=== PATIENT | male | born 1960 | race African-American/Black ===

== ENCOUNTER 2016-11-17 10:05 | Observation (INO) | payer OTHER, SELFPAY ==
[2016-11-17 10:41] LABS: #Basophils 0.1 thou/uL (0.0-0.2); #Eosinphils 0.2 thou/uL (0.0-0.7); #Lymphocytes 2.2 thou/uL (1.20-3.40); #Monocytes 0.8 thou/uL (0.11-0.59); #Neutrophils 8.3 thou/uL (1.40-6.50); %Basophils 0.9 % (0.0-1.0); %Eosinophils 1.5 % (0.0-10.0); Hematocrit 46.4 % (42.0-52.0); Mean Platelet Volume 8.4 fL (7.4-10.4); White Blood Cell (WBC) Count 11.6 thou/uL (4.8-10.8)
[2016-11-17 11:04] LABS: ALT (SGPT) 17 U/L (8-55); AST (SGOT) 33 U/L (5-34); Alkaline Phosphatase 77 U/L (40-150); Anion Gap 18 mmol/L (10-20); BUN (Urea Nitrogen) 14 mg/dL (8.4-25.7); Bilirubin, Total 0.5 mg/dL (0.2-1.2); Calc. Creatinine Clearance 0 mL/min (70-130); Calcium 9.5 mg/dL (7.8-10.44); Carbon Dioxide 22 mmol/L (22-29); Chloride 105 mmol/L (98-107); Estimated GFR-MDRD 52; Globulin 3.8 g/dL (2.4-3.5); Protein, Total 7.6 g/dL (6.0-8.3)
[2016-11-17] MEDS ORDERED: HYDROcodone/Acetaminophen 5/325 mg Tablet ONE (12:04)
[2016-11-17] MEDS ORDERED: Potassium Chloride 20 MEQ TAB ONE (12:16)
--- NOTE | 2016-11-17 15:02 | RAD ---
THREE VIEWS LEFT HAND: Date: 11-17-16 History: Left hand swelling for five days. Left hand pain. FINDINGS/IMPRESSION: There is no evidence of fracture, dislocation, or other osseous abnormality involving the left hand. There is subcutaneous soft tissue swelling seen at the dorsal aspect of the hand. POS: NATANAEL
--- NOTE | 2016-11-17 15:07 | ULT ---
LEFT UPPER EXTREMITY VENOUS DOPPLER WITH SPECTRAL ANALYSIS AND COLOR FLOW EVALUATION: Date: 11-17-16 History: Left hand swelling and pain for five days . FINDINGS: Grayscale, color flow, doppler evaluation, and spectral analysis of the left upper extremity venous structures is performed with 2D imaging. There is normal lumen compressibility and flow in the left internal jugular vein. Normal flow is seen in the left subclavian vein. There is normal lumen compre ssibility and flow seen within the left axillary and brachial veins with normal lumen compressibilit y in the left radial and ulnar veins. There is normal flow and lumen compressibility involving the l eft cephalic and basilic veins. IMPRESSION: No evidence of DVT involving the visualized deep venous structures left upper extremity. POS: SHANDRA
--- NOTE | 2016-11-17 15:07 | HP ---
PRIMARY CARE PHYSICIAN: [facility]. REASON FOR ADMISSION: Left hand swelling. HISTORY OF PRESENT ILLNESS: A 56-year-old male with a history of gout, hypertensio n, who came to the emergency room for evaluation of left hand swelling for the last 5 days. Patient denies any injury. He denies any insect bite. Patient reports that 5 days ago, problems started w ith his little finger on the left side, little finger was more swollen and more warm and subsequentl y he noticed swelling spreading to entire left hand as well as proximally in the forearm. He was braxton ving throbbing pain. Patient was trying ibuprofen at home without any help. He denies any fever. He denies any chills. Patient was not able to flex or extend his hand and with movement of the fing er, the patient's pain was getting worse. With these symptoms, he presented to the emergency room. The patient was found with left hand swelling. Dr. Siu, hand surgeon was consulted from ER who recommended to keep this patient in the hospital for evaluation. REVIEW OF SYSTEMS: The following complete review of systems was negative, unless otherwise mentione d in the HPI or below: Constitutional: Weight loss or gain, ability to conduct usual activities. Skin: Rash, itching. Eyes: Double vision, pain. ENT/Mouth: Nose bleeding, neck stiffness, pain, tenderness. Cardiovascular: Palpitations, dyspnea on exertion, orthopnea. Respiratory: Shortness of breath, wheezing, cough, hemoptysis, fever or night sweats. Gastrointestinal: Poor appetite, abdominal pain, heartburn, nausea, vomiting, constipation, or diar shy. Genitourinary: Urgency, frequency, dysuria, nocturia. Musculoskeletal: Pain, swelling. Neurologic/Psychiatric: Anxiety, depression. Allergy/Immunologic: Skin rash, bleeding tendency. All review of systems reviewed with him are negative except as mentioned in the HPI. EMERGENCY ROOM COURSE: Patient has received [place] 5 mg and potassium chloride 40 mEq p.o. one time dose. PAST MEDICAL HISTORY: Hypertension, history of CVA in 2007, dyslipidemia, chronic kidney disease st age 3. PAST SURGICAL HISTORY: Reviewed and negative. PAST PSYCHIATRIC HISTORY: Reviewed and negative. SOCIAL HISTORY: Patient lives at home. He denies any smoking, alcohol or illicit drug abuse. He i s . FAMILY HISTORY: No strong family history of premature coronary artery disease, stroke or cancer. ALLERGIES: The patient is not tolerating LISINOPRIL. CURRENT HOME MEDICATIONS: Aspirin 81 mg p.o. daily, amlodipine 5 mg p.o. daily, metoprolol 100 mg t wice daily, sildenafil 20 mg as needed. PHYSICAL EXAMINATION: VITAL SIGNS: On arrival, blood pressure 142/101, pulse 65, respiratory rate 20, temperature 97.5, s aturation 98% on room air, weight 95.2 kilograms. GENERAL: Patient is currently alert, awake, no obvious acute distress. HEAD: Normocephalic, atraumatic. EYES: Pupils round, reactive to light. Extraocular muscle intact. ENT: Oropharynx within normal limits. Moist mucous membranes. No oral lesions. No pharyngeal anastasiya thema, no exudate. NECK: Supple. Range of motion is normal. No meningeal signs of irritation. LUNGS: Clear to auscultation without any rhonchi or rales. CARDIAC: S1, S2 regular without any murmur. ABDOMEN: Obesity present. Bowel sounds present. Nontender, nondistended. No organomegaly, no mas s, no suprapubic tenderness. BACK: Unremarkable, no CVA tenderness. EXTREMITIES: Upper extremity: Left hand swollen, left little finger is erythematous, warm and tend er. Patient has swelling on the dorsal aspect of left hand with movement of finger as well as flexi on and extension movement increases pain and mild warmth noted and tenderness on deep palpation. No fluctuance noted. No drainage. Lower extremity within normal limits. No edema, good peripheral p ulsation. SKIN: No skin rash other than left hand swelling. NEUROLOGIC: Nonfocal examination. The patient moves all 4 limbs. Plantar bilateral flexor. PSYCHIATRIC: Normal affect. SIGNIFICANT LABORATORY DATA AND IMAGING: CBC: WBC 11.6, hemoglobin 15.2, MCV 101, platelets 410. BMP: Sodium 142, potassium 3.0, chloride 105, carbon dioxide 22, anion gap 18, BUN 14, creatinine 1 .65, glucose 97, calcium 9.5, uric acid 10.0, CRP 2.96. LFT: AST 33, ALT 17, alkaline phosphatase 77, albumin 3.8. Hand x-ray reviewed by me, consistent with soft tissue swelling without any acute process. Ultrasound, negative for any DVT. ASSESSMENT AND PLAN: 1. Left hand swelling. At this point, differential diagnosis is acute gout versus cellulitis. Pat ient has elevated CRP, has elevated uric acid. We will try to treat him with colchicine 0.6 mg twic e daily today and see clinical response. As cellulitis is also a possibility and that is why we yocasta l treat him with Rocephin 1 gram q.24 hours and vancomycin as per pharmacy adjusted dose. Upon disc harge, we will consider changing to oral Keflex and doxycycline if needed. This patient will be kep t in observation for 24 hours. We will also consult hand surgeon for evaluation. Depending upon cl inical response, we will consider discharging him home tomorrow. 2. Hypokalemia. The patient was given potassium chloride 40 mEq p.o. one time dose in the emergenc y room. 3. Chronic kidney disease stage 3. We will avoid nephrotoxic agents. 4. Macrocytosis. We will give him folic acid and vitamin B12 while in hospital. 5. Hypertension. We will continue amlodipine 5 mg p.o. daily, metoprolol 100 mg twice daily. 6. History of cerebrovascular accident. We will continue aspirin 81 mg p.o. daily. 7. Hyperuricemia. The patient will benefit from allopurinol therapy. 8. Deep venous thrombosis prophylaxis not needed, because we are expecting discharge in 24 hours. 9. Gastrointestinal prophylaxis, Pepcid 20 mg p.o. b.i.d. CODE STATUS: Patient is FULL CODE. The patient's is surrogate decision maker. Disposition and plan, likely within 24 hours.
[2016-11-17] MEDS ORDERED: Ondansetron ODT 4 MG TAB PO PRN (15:48)
[2016-11-17] MEDS ORDERED: Artificial Tears 18 DROP/0.9 ML EA EYE PRN (15:48)
[2016-11-17] MEDS ORDERED: Milk Of Magnesia 30 ML UDCUP PO PRN (15:48)
[2016-11-17] MEDS ORDERED: Eucerin (Mineral Oil/Petrolatum,White) 30 gm Jar TOP PRN (15:48)
[2016-11-17] MEDS ORDERED: Diabetic Tussin 200 MG/10 ML UDCUP PO PRN (15:48)
[2016-11-17] MEDS ORDERED: Loperamide HCl 2 MG CAP PO PRN (15:48)
[2016-11-17] MEDS ORDERED: Ondansetron HCl/PF 4 MG/2 ML Vial IVP PRN (15:48)
[2016-11-17] MEDS ORDERED: Senokot 8.6 MG TAB PO PRN (15:48)
[2016-11-17] MEDS ORDERED: Zolpidem Tartrate 5 MG TAB PO PRN (15:48)
[2016-11-17] MEDS ORDERED: Sodium Chloride 0.65% Nasal 44 ML BOT EA NARE PRN (15:48)
[2016-11-17] MEDS ORDERED: Loratadine 10 MG TAB PO PRN (15:48)
[2016-11-17 15:55] VITALS: BMI 29.5
[2016-11-17] MEDS: cefTRIAXone\\ROCEPHIN 1 GM in Sodium Chloride 0.9% 100 ML IVPB SCH (16:59)
[2016-11-17] MEDS: predniSONE 5 MG TAB PO SCH (17:11)
[2016-11-17] MEDS ORDERED: Colchicine 0.6 MG TAB PO SCH ×2 (17:15→21:00)
[2016-11-17] MEDS: Vancomycin HCl 1.25 GM in Sodium Chloride 0.9% 250 ML 250 ML IVPB SCH (17:51)
[2016-11-17] MEDS: Colchicine 0.6 MG TAB PO SCH (20:09)
[2016-11-17] MEDS: Famotidine 20 MG TAB PO SCH (20:09)
[2016-11-17] MEDS: Acetaminophen 325 MG TAB PO PRN (20:10)
[2016-11-17] MEDS: Metoprolol Tartrate 100 MG TAB PO SCH (20:10)
[2016-11-18] MEDS: Colchicine 0.6 MG TAB PO SCH ×3 (01:49→09:18)
[2016-11-18] MEDS: predniSONE 5 MG TAB PO SCH ×2 (01:49→09:18)
--- NOTE | 2016-11-18 02:12 | CON ---
DATE OF CONSULTATION: 11/17/2016 CHIEF COMPLAINT: Left small finger pain. HISTORY OF PRESENT ILLNESS: The patient with history of 2 prior gout attacks in the last year, not on chronic medications, reports 5 days of slow insidious swelling at the left small finger. No inju ry. No fever or chills. No prior history of chronic problems with the left upper extremity. PAST MEDICAL HISTORY: This patient has a history of renal failure where he was treated by a nephrol ogist, has some return of function but still did not have normal kidneys and this has been the last year. He has also been warned not to take anti-inflammatory medicine such as Motrin, ibuprofen, and Indocin. PHYSICAL EXAMINATION: The patient is mildly obese male, in no acute distress except for his left braxton nd where he has a diffuse edema, no lymphangitis, minimal faint erythema around the small finger, bu t from the DIP to the mid metacarpal and mild antalgic motion, but -30 to 75 to 80 degrees of flexio n in PIP joint and -15 to 70 degrees motion at the MP joint. No stretch pain, no Kanavel sign, no f usiform swelling, no pain with passive stretch. LABORATORY EVALUATION: Laboratory evaluation reveals the patient has a white count of 11,600 which is mildly elevated, but has an even greater uric acid elevation. He has no other signs of overwhelm ing infection. ASSESSMENT AND RECOMMENDATION: Definite gouty attack small finger proximal phalangeal joint more li sabrina than infectious arthritis, but the possibility of gout could have precipitated secondary infect ious arthritis is there, so I recommend, since the patient cannot take anti-inflammatory medications , begin a dose of prednisone as well as colchicine. He reports he probably had the prednisone with his last attack. I will recheck the patient 24 hours and if completely asymptomatic or nearly sympt omatic, we will continue with colchicine on a home basis. If not, we will need to have drainage of the joint with cultures and specimen.
[2016-11-18 04:39] LABS: #Lymphocytes 1.4 thou/uL (1.20-3.40); #Monocytes 0.7 thou/uL (0.11-0.59); #Neutrophils 8.2 thou/uL (1.40-6.50); %Basophils 0.1 % (0.0-1.0); %Eosinophils 0.5 % (0.0-10.0); %Lymphocytes 13.5 % (21.0-51.0); %Monocytes 6.4 % (0.0-10.0); Hematocrit 46.2 % (42.0-52.0); Red Blood Cell (RBC) Count 4.59 mill/uL (4.70-6.10); White Blood Cell (WBC) Count 10.3 thou/uL (4.8-10.8)
[2016-11-18 05:19] LABS: Anion Gap 20 mmol/L (10-20); BUN (Urea Nitrogen) 13 mg/dL (8.4-25.7); Calc. Creatinine Clearance 93 mL/min (70-130); Carbon Dioxide 21 mmol/L (22-29); Chloride 100 mmol/L (98-107); Estimated GFR-MDRD 70; Uric Acid 8.3 mg/dL (3.5-7.2)
[2016-11-18] MEDS: Vancomycin HCl 1.25 GM in Sodium Chloride 0.9% 250 ML 250 ML IVPB SCH ×2 (05:30→19:15)
[2016-11-18] MEDS: Acetaminophen 325 MG TAB PO PRN ×2 (06:26→15:13)
[2016-11-18] MEDS: Metoprolol Tartrate 100 MG TAB PO SCH (09:15)
[2016-11-18] MEDS: Famotidine 20 MG TAB PO SCH ×2 (09:16→20:12)
--- NOTE | 2016-11-18 11:33 | PDOC.PN ---
- Subjective Encounter Start Date: 11/18/16 Encounter Start Time: 11:31 Patient seen and examined. No new complaints. No overnight events. feels better. Pain controlled. No N/V. - Objective Resuscitation Status: Resuscitation Status FULL:Full Resuscitation MAR Reviewed: Yes Vital Signs & Weight: Vital Signs (12 hours) Temp Pulse Resp BP BP Pulse Ox 11/18/16 07:30 97.9 F 57 L 17 141/101 H 97 11/18/16 06:29 138/102 H 11/18/16 05:38 185/127 H 11/18/16 04:38 98.6 F 61 14 184/118 H 100 11/17/16 23:32 98.5 F 68 16 159/108 H 98 I&O: 11/17/16 11/18/16 11/19/16 06:59 06:59 06:59 Intake Total 1769 240 Output Total 3250 Balance -1481 240 Result Diagrams: 11/18/16 04:05 11/18/16 04:05 Phys Exam - Physical Examination Constitutional: NAD HEENT: sclera anicteric Neck: supple Respiratory: no wheezing, no rales Cardiovascular: RRR Gastrointestinal: soft Musculoskeletal: no edema Neurological: non-focal, moves all 4 limbs Psychiatric: normal affect, A&O x 3 Skin: no rash Deviation from normal: left arm with dressings Dx/Plan (1) HLD (hyperlipidemia) Code(s): E78.5 - HYPERLIPIDEMIA, UNSPECIFIED Status: Acute (2) CKD (chronic kidney disease) Code(s): N18.9 - CHRONIC KIDNEY DISEASE, UNSPECIFIED Status: Acute (3) Pain in left hand Code(s): M79.642 - PAIN IN LEFT HAND Status: Acute (4) Hypertension Code(s): I10 - ESSENTIAL (PRIMARY) HYPERTENSION Status: Acute - Plan cont current plan of care, continue antibiotics * . continue abx f/u with surgery monitor Vanc level pharmacy to dose Vanc continue colchicine and steroids. AM labs.
[2016-11-18 12:10] LABS: #Basophils 0.1 thou/uL (0.0-0.2); #Eosinphils 0.1 thou/uL (0.0-0.7); #Lymphocytes 1.4 thou/uL (1.20-3.40); #Monocytes 1.2 thou/uL (0.11-0.59); #Neutrophils 8.6 thou/uL (1.40-6.50); %Basophils 0.5 % (0.0-1.0); %Eosinophils 0.5 % (0.0-10.0); %Lymphocytes 12.6 % (21.0-51.0); %Monocytes 10.4 % (0.0-10.0); Hematocrit 44.2 % (42.0-52.0); Mean Platelet Volume 9.1 fL (7.4-10.4); Red Blood Cell (RBC) Count 4.39 mill/uL (4.70-6.10); White Blood Cell (WBC) Count 11.4 thou/uL (4.8-10.8)
[2016-11-18] MEDS: cefTRIAXone\\ROCEPHIN 1 GM in Sodium Chloride 0.9% 100 ML IVPB SCH (15:12)
[2016-11-18] MEDS: Metoprolol Tartrate 50 MG TAB PO SCH (20:11)
[2016-11-19 04:17] VITALS: TEMP 98.2
[2016-11-19 04:32] LABS: Uric Acid-Urine 21.3 mg/dL
[2016-11-19 05:05] LABS: Anion Gap 17 mmol/L (10-20); BUN (Urea Nitrogen) 15 mg/dL (8.4-25.7); Calc. Creatinine Clearance 89 mL/min (70-130); Calcium 9.7 mg/dL (7.8-10.44); Carbon Dioxide 24 mmol/L (22-29); Chloride 99 mmol/L (98-107); Estimated GFR-MDRD 67
[2016-11-19] MEDS: Famotidine 20 MG TAB PO SCH (09:15)
[2016-11-19] MEDS: Metoprolol Tartrate 50 MG TAB PO SCH (09:15)
[2016-11-19 09:17] VITALS: BP 166/128
--- NOTE | 2016-11-19 10:58 | PDOC.PN ---
- Subjective Encounter Start Date: 11/19/16 Encounter Start Time: 10:56 Patient seen and examined. No new complaints. No overnight events. feels better and wants to go home. Pain is controlled. - Objective Resuscitation Status: Resuscitation Status FULL:Full Resuscitation MAR Reviewed: Yes Vital Signs & Weight: Vital Signs (12 hours) Temp Pulse Resp BP BP Pulse Ox 11/19/16 09:16 54 L 166/128 H 11/19/16 07:48 98.2 F 54 L 16 11/19/16 07:21 98.7 F 71 18 168/117 H 99 11/19/16 03:58 98.2 F 54 L 16 160/100 H 98 11/19/16 00:06 57 L 16 170/115 H I&O: 11/18/16 11/19/16 11/20/16 06:59 06:59 06:59 Intake Total 1769 1470 Output Total 3250 1100 Balance -1481 370 Result Diagrams: 11/18/16 11:43 11/19/16 04:00 Phys Exam - Physical Examination Constitutional: NAD HEENT: sclera anicteric Neck: supple Respiratory: no wheezing, no rales Cardiovascular: RRR Gastrointestinal: soft Musculoskeletal: no edema Neurological: non-focal, moves all 4 limbs Psychiatric: normal affect, A&O x 3 Skin: no rash Dx/Plan (1) HLD (hyperlipidemia) Code(s): E78.5 - HYPERLIPIDEMIA, UNSPECIFIED Status: Acute (2) CKD (chronic kidney disease) Code(s): N18.9 - CHRONIC KIDNEY DISEASE, UNSPECIFIED Status: Acute (3) Pain in left hand Code(s): M79.642 - PAIN IN LEFT HAND Status: Acute (4) Hypertension Code(s): I10 - ESSENTIAL (PRIMARY) HYPERTENSION Status: Acute (5) Gout attack Code(s): M10.9 - GOUT, UNSPECIFIED Status: Acute (6) Gouty arthritis Code(s): M10.9 - GOUT, UNSPECIFIED Status: Acute (7) Hypokalemia Code(s): E87.6 - HYPOKALEMIA Status: Acute - Plan * . DC home today Medrol dose luigi will give Keflex for 5 more days. Cleared by hand surgery F/u with surgery and PCP in one week. Report to ER if sx worsens. Replete K before DC will increase Amlo to 10 mg po daily.
[2016-11-19] MEDS ORDERED: Potassium Chloride 20 MEQ TAB PO SCH (11:00)
--- NOTE | 2016-11-19 23:36 | DIS ---
DATE OF ADMISSION: 11/17/2016 DATE OF DISCHARGE: 11/19/2016 DISCHARGE DIAGNOSES: 1. Left hand pain most likely gouty arthritis. 2. Gouty arthritis with resolution. 3. Hypokalemia. 4. Chronic kidney disease stage III. 5. Hypertension. 6. History of cerebrovascular accident. 7. Hyperuricemia. 8. History of gout. CONSULTATIONS: Dr. Nehemiah Siu. HOSPITAL COURSE: This is a 56-year-old male who came to the hospital with left hand pain and swelli ng and was admitted for further evaluation. On lab work, he was found to have hyperuricemia and [facility] was also consulted and they evaluated if that is secondary to gout. He was started on mekhi roids. He was also given antibiotics, although IV antibiotics was stopped and Hand Surgery recommen ded sending him home on a Medrol Dosepak. He was also given Keflex for a few more days. His blood pressure was slightly elevated, so we increased his amlodipine dose to 10 mg p.o. daily and advised to follow up with his primary care physician. He was also slightly hypokalemic. He was given a dos e of potassium on discharge. CONDITION ON DISCHARGE: Stable. DISPOSITION: To home. DISCHARGE MEDICATIONS: 1. Patient to continue all his home medications except for amlodipine, which will be increased to 1 0 mg p.o. daily and will add Keflex and Medrol Dosepak. 2. Metoprolol 50 mg p.o. b.i.d. His heart rate was on the lower side here. Advised to follow with primary care. 3. Sildenafil p.r.n. 4. Aspirin 81 mg daily. 5. Medrol Dosepak as directed. 6. Norvasc 10 mg p.o. daily. 7. Keflex 500 mg p.o. b.i.d. for 5 more days. DISCHARGE FOLLOWUP: With primary care physician in 1-[address] Nehemiah Siu of [facility] in 1 week.
== END 2016-11-19 11:43 | disposition home or self-care (01) ==
LOC: ERS 10:05 → 2SW 15:40
PROVIDERS: ADMIT Internal Medicine; ATTEND Internal Medicine
DX: M10.042 Idiopathic gout, left hand (principal); E87.6 Hypokalemia; I12.9 Hypertensive chronic kidney disease with stage 1 through stage 4 chronic kidney disease, or unspecified chronic kidney disease; N18.3 Chronic kidney disease, stage 3 (moderate); E79.0 Hyperuricemia without signs of inflammatory arthritis and tophaceous disease; Z88.8 Allergy status to other drugs, medicaments and biological substances; Z79.82 Long term (current) use of aspirin; Z79.899 Other long term (current) drug therapy
CPT/HCPCS: 36415; 80048; 80053; 84550; 84560; 85025; 86140; 87324; 87449; 96365; 96366; 96367; 96376; G0378; J0696; J3370; J7050

== ENCOUNTER 2016-12-18 09:51 | Outpatient (CLI) | payer OTHER ==
--- NOTE | 2016-12-18 13:08 | RAD ---
CHEST PA AND LATERAL: History: 56-year-old male with hypertension. Comparison: 01-21-15 FINDINGS: Heart size is normal. There is sclerosis of the aorta with ectasia. No confluent pneumonia, overt ed erika, or pleural effusion. IMPRESSION: No acute intrathoracic disease. Atherosclerosis of the aorta with ectasia. Stable from prior study. POS: NATANAEL
== END 2016-12-18 09:52 | disposition home or self-care (01) ==
LOC: RAD-FRANK 09:51
PROVIDERS: ATTEND Nurse Practitioner Family
DX: I10 Essential (primary) hypertension (principal); I70.0 Atherosclerosis of aorta; I77.819 Aortic ectasia, unspecified site
CPT/HCPCS: 71020

== ENCOUNTER 2017-05-22 21:18 | Emergency (ER) | payer OTHER ==
[2017-05-22 21:53] LABS: Bilirubin Negative (Negative); Blood, Urine Small (Negative); Clarity CLEAR (Clear); Glucose, Urine (Dipstick) Negative (Negative); Leukocyte Negative (Negative); Nitrite Negative (Negative); Protein, Urine (Dipstick) 100 mg/dL (Neg-Trace)
[2017-05-22 21:57] LABS: Bacteria/HPF None Seen HPF (None Seen); Hyaline Casts/LPF 0-3 HYALINE CAST LPF (0-3 Hyaline); Pathc Cast-AUWi Flag 0.14 (0-2.49); RBC/HPF None Seen HPF (0-3); Squamous Epithelial None Seen HPF (0-3); WBC/HPF None Seen HPF (0-3)
[2017-05-22 21:58] LABS: Amphetamine Not Detected (NotDetected); Barbiturates Screen Not Detected (NotDetected); Benzodiazepine Screen Not Detected (NotDetected); Cocaine Metabolite Screen Not Detected (NotDetected); Medtox Control Line Valid? VALID (VALID); Medtox Reader # READER 1; Methadone Not Detected (NotDetected); Methamphetamine Not Detected (NotDetected); Opiate Screen Not Detected (NotDetected); Oxycodone Screen Not Detected (NotDetected); Phencyclidine (PCP) Not Detected (NotDetected); THC/Cannabinoid Screen Detected (NotDetected); Tricyclic Screen Not Detected (NotDetected)
[2017-05-22 22:11] LABS: #Basophils 0.1 thou/uL (0.0-0.2); #Eosinphils 0.3 thou/uL (0.0-0.7); #Lymphocytes 1.9 thou/uL (1.20-3.40); #Monocytes 0.5 thou/uL (0.11-0.59); %Basophils 1.4 % (0.0-1.0); %Eosinophils 4.1 % (0.0-10.0); %Lymphocytes 28.5 % (21.0-51.0); %Monocytes 7.2 % (0.0-10.0); %Neutrophils 58.9 % (42.0-75.0); Hemoglobin 13.5 g/dL (14.0-18.0); Mean Corpuscular Hemoglobin 30.3 pg (27.0-31.0); Mean Corpuscular Volume 91.8 fl (80.0-94.0); Mean Platelet Volume 8.2 fL (7.4-10.4); Platelet Count 341 thou/uL (130-400); RBC Distribution Width 19.2 % (11.5-14.5); Red Blood Cell (RBC) Count 4.44 mill/uL (4.70-6.10); White Blood Cell (WBC) Count 6.7 thou/uL (4.8-10.8)
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
[2017-05-22 22:29] LABS: ALT (SGPT) 29 U/L (8-55); AST (SGOT) 104 U/L (5-34); Acetaminophen Less than 6.0 mcg/mL (10.0-30.0); Albumin 3.8 g/dL (3.5-5.0); Alcohol 334 mg/dL (Less than 10); Alkaline Phosphatase 92 U/L (40-150); Anion Gap 18 mmol/L (10-20); BUN (Urea Nitrogen) 15 mg/dL (8.4-25.7); Bilirubin, Total 0.4 mg/dL (0.2-1.2); Calc. Creatinine Clearance 0 mL/min (70-130); Calcium 9.3 mg/dL (7.8-10.44); Carbon Dioxide 23 mmol/L (22-29); Chloride 103 mmol/L (98-107); Estimated GFR-MDRD 54; Globulin 3.4 g/dL (2.4-3.5); Glucose 94 mg/dL (70-105); Lipase 50 U/L (8-78); Potassium 3.4 mmol/L (3.5-5.1); Protein, Total 7.2 g/dL (6.0-8.3); Salicylate Less than 8.0 mg/dL (15.0-30.0); Sodium 141 mmol/L (136-145)
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
== END 2017-05-23 03:10 | disposition home or self-care (01) ==
LOC: ERS 21:18
DX: F10.129 Alcohol abuse with intoxication, unspecified (principal); Y90.8 Blood alcohol level of 240 mg/100 ml or more; F12.10 Cannabis abuse, uncomplicated; E78.5 Hyperlipidemia, unspecified; I10 Essential (primary) hypertension; Z79.899 Other long term (current) drug therapy; Z79.82 Long term (current) use of aspirin; Z86.73 Personal history of transient ischemic attack (TIA), and cerebral infarction without residual deficits
CPT/HCPCS: 36415; 70450; 72125; 80053; 80306; 80307; 81003; 81015; 83605; 83690; 85025; 96360; 96361

== ENCOUNTER 2018-08-19 10:36 | Inpatient (IN) | payer OTHER ==
[~2018-08-19 10:36] MED LIST: ISOVUE-370 76%-LOCM 1 ML ONE
[2018-08-19 10:55] LABS: #Lymphocytes 2.2 thou/uL (1.20-3.40); #Neutrophils 8.4 thou/uL (1.40-6.50); %Basophils 0.1 % (0.0-1.0); %Eosinophils 0.4 % (0.0-10.0); %Lymphocytes 18.5 % (21.0-51.0); %Monocytes 8.9 % (0.0-10.0); %Neutrophils 72.1 % (42.0-75.0); Hemoglobin 15.1 g/dL (14.0-18.0); Mean Corpuscular Hemoglobin 27.7 pg (27.0-31.0); Mean Corpuscular Volume 89.5 fL (78.0-98.0); Mean Platelet Volume 7.7 fL (7.4-10.4); Platelet Count 301 thou/uL (130-400); RBC Distribution Width 13.2 % (11.5-14.5); Red Blood Cell (RBC) Count 5.44 mill/uL (4.70-6.10); White Blood Cell (WBC) Count 11.7 thou/uL (4.8-10.8)
[2018-08-19 11:04] LABS: INR-International Normal Ratio 0.9; PTT 28.7 SEC (22.9-36.1); Prothrombin Time 12.2 SEC (12.0-14.7)
[2018-08-19 11:21] LABS: ALT (SGPT) Less than 7 U/L (8-55); AST (SGOT) 13 U/L (5-34); Albumin 3.7 g/dL (3.5-5.0); Alkaline Phosphatase 71 U/L (40-150); Anion Gap 19 mmol/L (10-20); BUN (Urea Nitrogen) 30 mg/dL (8.4-25.7); Bilirubin, Total 0.8 mg/dL (0.2-1.2); CK (CPK) 228 U/L (30-200); Calc. Creatinine Clearance 0 mL/min (70-130); Calcium 9.4 mg/dL (7.8-10.44); Carbon Dioxide 21 mmol/L (22-29); Chloride 99 mmol/L (98-107); Estimated GFR-MDRD 27; Glucose 83 mg/dL (70-105); Lipase 14 U/L (8-78); Potassium 3.6 mmol/L (3.5-5.1); Protein, Total 6.7 g/dL (6.0-8.3); Sodium 135 mmol/L (136-145)
[2018-08-19 11:24] LABS: Acetaminophen Less than 6.0 mcg/mL (10.0-30.0); Alcohol Less than 10 mg/dL (Less than 10); Salicylate Less than 8.0 mg/dL (15.0-30.0)
--- NOTE | 2018-08-19 11:27 | RAD ---
XR Chest 1 View Portable HISTORY: Left-sided weakness slurred speech. COMPARISON: 01/21/2015 study. FINDINGS: Heart size appears slightly enlarged with a tortuous aorta. The lungs are clear of infiltra rajendra. There are no signs of failure. IMPRESSION: Mild cardiomegaly. Stable chest.
--- NOTE | 2018-08-19 11:30 | CT ---
CT angiogram of brain with and without contrast: DATE: 08/19/2018 HISTORY: 57-year-old male with subarachnoid hemorrhage. Findings intracranial aneurysm. This level 1 stroke protocol report was called to Dr. Bullock at 11:22 AM on 08/19/2018 COMPARISON: None available TECHNIQUE: Noncontrast brain CT performed. Iodinated IV contrast injected. Bolus chasing technique scan performed through the head. Coronal and sagittal 3-D MIP reconstructions. FINDINGS: Anterior and posterior circulation arteries of [place] of [place] are of normal caliber, with no occlus ion, high-grade stenosis, or aneurysm. This includes the origins of the bilateral PICA s, diminutive right AICA, bilateral superior cerebellar arteries, and bilateral posterior cerebral arter ies. No aneurysm at basilar tip. No aneurysm at MCA trifurcations or carotid siphons. No aneurysm identified at right posterior communicating. There is no posterior communicating artery on the left s jeremy. No anterior to indicating artery is visualized. IMPRESSION: Negative. No aneurysm found. Consider catheter cerebral angiography.
--- NOTE | 2018-08-19 11:51 | CT ---
HEAD CT WITHOUT CONTRAST: COMPARISON: 05/22/2017. HISTORY: Level I stroke. History of previous CVA with extremity weakness. The patient had difficulty walking last night. The patient has slurred speech and is aphasic. FINDINGS: There is evidence of subarachnoid blood along the left CP angle cistern, interpeduncular cistern, and left ambient cistern. There is also evidence of blood which may be subdural in location, tracking a long the left tentorium. There does appear to be blood adjacent to the expected region of the basila r artery. There is asymmetric hyperdensity on a single axial slice near the left carotid terminus. Cortical kitchen-white matter differentiation is preserved. No evidence of hydrocephalus. Confluent wh ite matter hypodensities are identified. Minimal sinus disease. Calvarium is intact. IMPRESSION: 1. Intracranial hemorrhage predominantly subarachnoid in location. Blood is noted near the expected region of the basilar artery. 2. Small amount of subdural blood along the left tentorium is suspected. 3. Nonspecific asymmetric hyperdensity of the left carotid terminus. Significance is uncertain. 4. Results of the study discussed with Dr. Bullock 08/19/2018 at 10:46 a.m. CODE CR POS: [facility]
[2018-08-19 11:55] LABS: CKMB 1.9 ng/mL (0-6.6)
[2018-08-19] MEDS ORDERED: Senokot S 8.6-50 MG TAB PO PRN (13:04)
[2018-08-19] MEDS ORDERED: Ondansetron PF 4 MG/2 ML Vial IVP PRN (13:04)
[2018-08-19] MEDS ORDERED: Bisacodyl 10 MG SUPP PR PRN (13:04)
[2018-08-19] MEDS ORDERED: Sodium Chloride 0.9% 1,000 ML IV SCH ×2 (13:15→14:56)
--- NOTE | 2018-08-19 13:45 | MRI ---
MRI BRAIN NONCONTRAST: DATE: 08/19/2018 HISTORY: 57-year-old male with acute subarachnoid hemorrhage. FINDINGS: There is subarachnoid hemorrhage, moderate amount, at the prepontine cistern and the left cerebellopo ntine angle cistern. Gradient echo sequence demonstrates a thin layer of acute hemorrhage along the left tentorium cerebelli. There is no obstructive hydrocephalus. There is no midline shift or any oth er evidence of mass effect. There is no extra-axial fluid collection. There are extensive, confluent T2-hyperintensities throughout the cerebral white matter consistent with moderate-severe ch ronic ischemic white matter changes due to microvascular atherosclerosis. There is diffuse brain parenchymal volume loss. There is no evidence of recent hemorrhage or restricted diffusion. Tiny old lacunar infarctions left basal ganglia, right and left thalamus, and left cerebellar hemisphere. IMPRESSION: 1) acute subarachnoid hemorrhage, mostly in the basal cisterns, asymmetrically greater on the left si de. 2) acute thin layer of subdural hematoma along the left tentorium cerebelli. 3) Involutional changes and moderate-severe chronic ischemic white matter changes. 4) tiny old lacunar infarctions at bilateral thalami, left basal ganglia, and left cerebellar hemisph ere.
[2018-08-19] MEDS: hydrALAZINE 20 MG/ML VIAL SLOW IVP PRN ×6 (14:26→23:24)
--- NOTE | 2018-08-19 15:48 | HP ---
This is Saturnino Romero PA-C dictating a report for Eliud Moore MD. A 50-minute initial patient evaluation, of which greater than 50% of the exam was spent in counseling and coordinating the patient's care. Remainder of the exam was spent in reviewing the patient's medical records, formulation of treatment plan, and review of appropriate imaging studies. CHIEF COMPLAINT: Sudden onset of headache with left facial droop, slurred speech, and left arm greater than leg weakness. HISTORY OF PRESENT ILLNESS: Mr. Jaimes is a pleasant 57-year-old male, presents to [facility] as an air flight from [place] for the above complaints. Apparently, yesterday evening, the patient had a sudden onset of headache in the bilateral frontal region, which is new for him. In 2007, he sustained a CVA that left him with fairly profound right arm and leg weakness, which required him to use a walker at home. Falls are not normal for him. He is on 81 mg aspirin for his previous CVA, but no other blood thinners. But an hour before he presented to the emergency room, he has sudden onset of left facial droop, slurred speech, and left arm greater than left leg weakness. Prompted him to be seen in [place] as a stroke alert, and a CT scan showed some subarachnoid hemorrhage along the right basilar artery. CT angio was obtained and this is negative for aneurysm and it is negative. PHYSICAL EXAMINATION: The patient is resting in bed, but when I entered the room, he awakens easily and stays awake. GCS is 15. He does have a slight amount of slurred speech and his speech appears slightly pressured and he appears to be somewhat anxious. Otherwise, he is appropriate in answering questions. He has, according to him, stable right arm and leg weakness, which is in the moderate range. He has antigravity in both of those extremities. He has mild weakness into the left arm and appears to have even less weakness into the left lower extremity. He does not appear to have any pronator drift. On questioning, he states that he has blurred vision, but has no difficulty with visual field testing in confrontation or when I hold up 2 to 4 fingers, he is able to correctly identify this. He is unable to define an island; however, he is able to correctly identify a pen and define its purpose. Pupils are equal, round, and reactive bilaterally. IMPRESSION AND DIAGNOSES: 1. Sudden onset of headache with slurred speech, left arm greater than leg weakness with hemorrhage around the right basilar artery. 2. Slight subdural blood into the tentorium. 3. History of cerebrovascular accident in 2007 with residual right-sided weakness, on 81 mg aspirin. PLAN: I have discussed the patient's case and imaging with Dr. Moore. At this time, we will order brain MRI with and without contrast; however, given the patient's GFR being elevated, we will do this without. We will admit him to the ICU for close neurosurgical monitoring, but at this time, he does not require any type of neurosurgical intervention. I would like his systolic blood pressure to remain less than 150 and his diastolic blood pressure to remain less than 100. We will also consult Medicine and Nephrology to help with the patient's medical issues as well as kidney issues. We will follow up on the patient's MRI, but at this time, I would like him to be n.p.o. Please call with any changes in the patient's neurologic status. Job ID: [id number]
[2018-08-19 16:30] LABS: Bilirubin Negative (Negative); Blood, Urine Negative (Negative); Clarity Clear (Clear); Glucose, Urine (Dipstick) Negative (Negative); Leukocyte Negative (Negative); Nitrite Negative (Negative); Protein, Urine (Dipstick) > or equal to 300 mg/dL (Neg-Trace)
[2018-08-19] MEDS: Sodium Chloride 0.9% 1,000 ML IV SCH (16:40)
[2018-08-19 17:07] LABS: Bacteria/HPF None Seen HPF (None Seen); Hyaline Casts/LPF NONE SEEN LPF (0-3 Hyaline); RBC/HPF None Seen HPF (0-3); Squamous Epithelial None Seen HPF (0-3); WBC/HPF 0-3 HPF (0-3)
[2018-08-19] MEDS: Labetalol HCl 100 MG/20 ML VIAL SLOW IVP PRN ×2 (17:36→23:48)
--- NOTE | 2018-08-19 23:55 | CON ---
DATE OF CONSULTATION: HISTORY OF PRESENT ILLNESS: Kyle Jaimes is a 57-year-old gentleman, who was admitted to the ICU following a CT MRI showing subdural hemorrhage. CT angiogram of neck and head did not reveal an obvious aneurysm. Neurosurgery has admitted him to the ICU. Pulmonary Critical Care seeing him while in the ICU. His is at the bedside, who states that he woke up this morning with left-sided weakness. He lives in the [facility]. PAST MEDICAL HISTORY: Pertinent for hypertension, renal failure, arthritis, gout. MEDICATIONS: List presumably from home has included: 1. Aspirin. 2. Amlodipine 5. 3. Metoprolol 50 twice a day. 4. 20 once a day. 5. Coreg 12.5 two a day. 6. Indocin. 7. Allopurinol. PAST MEDICAL HISTORY: Pertinent for previous CVA, previous hypertension, chronic renal failure. SOCIAL HISTORY: No alcohol, tobacco abuse. PAST SURGICAL HISTORY: None recently. He has had a previous endoscopy done in the past. REVIEW OF SYSTEMS: Otherwise unremarkable. PHYSICAL EXAMINATION: GENERAL: Awake and responsive, slight slurred speech. VITAL SIGNS: Pulse 96, blood pressure 160/114, saturation 98%, and respirations 24. CHEST: No wheezing or crackles. CARDIAC: Normal S1, S2. No gallops. ABDOMEN: No masses. LABORATORY DATA: White count 9000, H and H , platelet count is unremarkable. His creatinine is 2.95, which apparently appears to be his baseline. IMPRESSION: Subarachnoid hemorrhage, hypertension, previous cerebrovascular accident, gout. PLAN: Blood pressure control as per Neurosurgery. Pulmonary Critical Care will follow while in the ICU. Consultation note, 70 minutes, 50% direct patient care. Job ID: [id number]
[2018-08-20] MEDS: hydrALAZINE 20 MG/ML VIAL SLOW IVP PRN ×2 (01:55→06:12)
[2018-08-20] MEDS: Sodium Chloride 0.9% 1,000 ML IV SCH ×3 (03:18→16:39)
[2018-08-20] MEDS ORDERED: niCARdipine 25 MG in Sodium Chloride 0.9% 250 ML 250 ML IVPB PRN (03:31)
--- NOTE | 2018-08-20 03:40 | PDOC.EVN ---
Event Note - Event Note Event Note: Overnight event note: RN called - BP still uncontrolled despite Labetalol and Hydralazine. Will start Cardene drip to maintain SBP <150 and DBP <100 per NSG. Also reduce IV Ns to 75 ml/hr
--- NOTE | 2018-08-20 04:13 | CON ---
DATE OF CONSULTATION: 08/19/2018 CONSULTING PHYSICIAN: Dr. Moore. REASON FOR CONSULTATION: Acute kidney injury. REASON FOR ADMISSION: Stroke-like symptoms. HISTORY OF PRESENT ILLNESS: A 57-year-old male with history of hypertension, CVA, and CKD, came to the hospital with above complaints and Nephrology was consulted for acute kidney injury. His creatinine was found to be elevated at 2.9. His last creatinine was 1.6. He does follow up with me in the CKD [facility]. No nausea or vomiting. The patient is complaining of left-sided weakness and some slurred speech. He was seen in ICU. PAST MEDICAL HISTORY: Positive for CVA, hypertension, hyperlipidemia, and CKD. PAST SURGICAL HISTORY: None. HOME MEDICATIONS: Include, 1. Hydralazine. 2. Loperamide. 3. Folate. 4. Amlodipine. 5. Thiamine. 6. Omeprazole. 7. Metoprolol. ALLERGIES: TO LISINOPRIL. SOCIAL HISTORY: History of smoking in the past and alcohol use. No illicit drug abuse. FAMILY HISTORY: No history of kidney disease. REVIEW OF SYSTEMS: CONSTITUTIONAL: Negative for weight loss or gain, ability to conduct usual activities. SKIN: Negative for rash, itching. EYES: Negative for double vision, pain. ENT/MOUTH: Negative for nose bleeding, neck stiffness, pain, tenderness. CARDIOVASCULAR: Negative for palpitations, dyspnea on exertion, orthopnea. RESPIRATORY: Negative for shortness of breath, wheezing, cough, hemoptysis, fever or night sweats. GASTROINTESTINAL: Negative for poor appetite, abdominal pain, heartburn, nausea, vomiting, constipation, or diarrhea. GENITOURINARY: Negative for urgency, frequency, dysuria, nocturia. MUSCULOSKELETAL: Negative for pain, swelling. NEUROLOGIC/PSYCHIATRIC: Negative for anxiety, depression. ALLERGY/IMMUNOLOGIC: Negative for skin rash, bleeding tendency. PHYSICAL EXAMINATION: GENERAL: This is a well-built male, in no apparent distress. VITAL SIGNS: Temperature 98.5, pulse 75, respiratory rate blood pressure 157/108. HEENT: Atraumatic, normocephalic. Oral mucosa is moist. NECK: Supple. CV: S1 and S2 heard. Rate and rhythm, regular. RESPIRATORY: Clear. GI: Abdomen is soft. MUSCULOSKELETAL: 1+ edema. DERMATOLOGIC: No skin rash. NEUROLOGIC: Alert and awake. PSYCH: Normal mood and affect. LABORATORY DATA: Sodium 138, potassium 3.6, BUN is 30, and creatinine is 2.9. Hemoglobin is 15.1. ASSESSMENT: 1. Acute kidney injury, most likely from volume depletion. Agree with hydration as tolerated. 2. medication. 3. Proteinuria. 4. Edema, controlled. PLAN: To continue hydration. Monitor renal function. We will follow. Thank you for the consult. Job ID: [id number]
[2018-08-20] MEDS: niCARdipine 25 MG in Sodium Chloride 0.9% 250 ML 240 ML IVPB PRN ×2 (04:23→06:20)
[2018-08-20 07:36] LABS: #Eosinphils 0.1 thou/uL (0.0-0.7); #Lymphocytes 1.4 thou/uL (1.20-3.40); #Monocytes 0.7 thou/uL (0.11-0.59); #Neutrophils 6.9 thou/uL (1.40-6.50); %Basophils 0.4 % (0.0-1.0); %Eosinophils 0.8 % (0.0-10.0); %Monocytes 7.9 % (0.0-10.0); %Neutrophils 75.9 % (42.0-75.0); Hemoglobin 14.9 g/dL (14.0-18.0); Mean Corpuscular HGB CONC 32.4 g/dL (32.0-36.0); Mean Corpuscular Hemoglobin 29.4 pg (27.0-31.0); Mean Corpuscular Volume 90.9 fL (78.0-98.0); Mean Platelet Volume 7.8 fL (7.4-10.4); Platelet Count 277 thou/uL (130-400); RBC Distribution Width 13.3 % (11.5-14.5); Red Blood Cell (RBC) Count 5.05 mill/uL (4.70-6.10); White Blood Cell (WBC) Count 9.1 thou/uL (4.8-10.8)
[2018-08-20 07:54] LABS: Anion Gap 17 mmol/L (10-20); BUN (Urea Nitrogen) 30 mg/dL (8.4-25.7); Calc. Creatinine Clearance 41 mL/min (70-130); Calcium 10.2 mg/dL (7.8-10.44); Carbon Dioxide 21 mmol/L (22-29); Chloride 104 mmol/L (98-107); Estimated GFR-MDRD 33; Glucose 77 mg/dL (70-105); Potassium 3.2 mmol/L (3.5-5.1); Sodium 139 mmol/L (136-145)
[2018-08-20] MEDS ORDERED: Sodium Chloride 0.65% Nasal 44 ML BOT EA NARE PRN (07:56)
[2018-08-20] MEDS ORDERED: Artificial Tears 18 DROP/0.9 ML EA EYE PRN (07:56)
[2018-08-20] MEDS ORDERED: Cepastat Lozenges 1 LOZ PO PRN (07:56)
[2018-08-20] MEDS ORDERED: Bisacodyl 10 MG SUPP PR PRN (07:56)
--- NOTE | 2018-08-20 08:15 | PRG ---
DATE OF SERVICE: 08/20/2018 SUBJECTIVE: This morning, he is awake, alert, and responsive. Denies any headaches. Denies difficulty breathing. OBJECTIVE: VITAL SIGNS: Saturations are 93% on room air, blood pressure 125/80, pulse is 80, and respirations 18. CHEST: Decreased breath sounds. No wheezing. CARDIAC: Normal S1 and S2. No gallops. ABDOMEN: Soft. LABORATORY DATA: Creatinine is 2.9. His labs are unremarkable. IMPRESSION: 1. Status post subdural chronic renal failure. 2. Hypertension. PLAN: Pulmonary-george, he is stable. He is going to have an angiogram, thereafter he can be transferred out of the ICU. Pulmonary will follow while in the ICU. Job ID: [id number]
[2018-08-20] MEDS: Allopurinol 100 MG TAB PO SCH (08:43)
[2018-08-20] MEDS: Thiamine 100 MG TAB PO SCH (08:43)
[2018-08-20] MEDS: Folic Acid 1 MG TAB PO SCH (08:43)
[2018-08-20] MEDS: Pantoprazole 40 MG VIAL IVP SCH (08:43)
[2018-08-20] MEDS ORDERED: Non-Formulary Item 1 EACH (Thiamine Hcl [Vitamin B-1] 100 MG) PO SCH (09:00)
--- NOTE | 2018-08-20 11:14 | PRG ---
DATE OF SERVICE: 08/20/2018 This is a 50-minute initial hospital visit note, in which 50 minutes were spent reviewing the imaging record, evaluation, examination of patient, formulation of plan. Greater than 50% time was spent in counseling on Kyle Jaimes. CHIEF COMPLAINT: Perimesencephalic subarachnoid hemorrhage. CTA negative. HISTORY OF PRESENT ILLNESS: I reviewed the notes of my colleague, Saturnino Romero PA-C, and agree with its content. SUBJECTIVE: Mr. Jaimes is a 57-year-old man, who 2 days ago had sudden onset of headache. Head CT demonstrated a perimesencephalic and prepontine clot consistent with subarachnoid hemorrhage. There was no antecedent trauma, neither clinically nor radiologically. He was admitted. CT angiogram is negative for vascular abnormality. MRI is negative for stroke or any other abnormality, although there is a history of long-standing white matter disease, vascular etiology. He does have elevated creatinine at 2.95. As such, we are not able to give contrast for the MRI. I have discussed his care with Dr. Abbe Allen for consideration of diagnostic angiogram. OBJECTIVE: The patient is alert, appropriate. He does appear somewhat delayed in his responses, but no apparent cranial nerve or long tract deficits. He does speak fluently, moves all extremities to command. He does not have appear to have nuchal rigidity. He does not appear to have meningismus. IMPRESSION AND PLAN: I have let Mr. Jaimes know about the plan for likely angiogram with my colleague, Dr. Allen. Should the angiogram be negative, we will likely plan for head CT repeat tomorrow morning. If it is stable, transfer to the floor. I have let the patient know that if this truly is a perimesencephalic subarachnoid hemorrhage, the etiology is oftentimes unknown, perhaps related to venous bleed. The patient is on aspirin, and patients with history of stroke, white matter disease, and aspirin therapy are at risk for these bleeds. Nevertheless, he has been somewhat hypertensive and we will work on that as well, which obviously could be a contributing factor. 1. Perimesencephalic subarachnoid hemorrhage. Job ID: [id number] MTDD
--- NOTE | 2018-08-20 12:11 | PRG ---
DATE OF SERVICE: 08/20/2018 SUBJECTIVE: Patient was seen and examined at bedside and overnight events noted. Patient denies any shortness of breath or chest pain or palpitation. No history of nausea or vomiting or diarrhea or fever or chills or cramps. OBJECTIVE: GENERAL: This is a well-built male, in no apparent distress. VITAL SIGNS: Temperature 98. Heart rate . Blood pressure 130/92. HEENT: Atraumatic, normocephalic. Oral mucosa is moist NECK: Supple. CARDIOVASCULAR: S1, S2 heard. Rate and rhythm regular. RESPIRATORY: Clear to auscultation. GASTROINTESTINAL: Abdomen is soft. MUSCULOSKELETAL: No tenderness. No edema. DERMATOLOGIC: No skin rash. NEUROLOGIC: Alert and awake and oriented X3. No focal neurologic deficits. Moving all the extremities. PSYCHIATRIC: Mood and affect normal. LABORATORY DATA: Potassium is 3.2, BUN is 30, creatinine is 2.4. ASSESSMENT AND PLAN: 1. Acute kidney injury on chronic kidney disease stage 3 with improvement in creatinine. We will continue hydration as tolerated. 2. Hypokalemia, mild. 3. Metabolic acidosis. 4. Proteinuria, chronic. 5. Edema, controlled. 6. Hypertension. Titrate medication . We will reduce IV fluids to 75 mL/hr and will follow renal function. Job ID: [id number]
--- NOTE | 2018-08-20 14:49 | CON ---
DATE OF CONSULTATION: PRIMARY CARE PROVIDER: NALLELY Chowdary PRIMARY ATTENDING: Eliud Moore MD REASON FOR ADMISSION: Subarachnoid hemorrhage as well as subdural hemorrhage. REASON FOR CONSULTATION: Medical comanagement. HISTORY OF PRESENT ILLNESS: A 57-year-old male, who was admitted under Neurosurgery yesterday. This patient was having left-sided weakness. The patient also had a change in his speech and facial droop. He was evaluated in the emergency room with a CT brain, which showed subarachnoid hemorrhage as well as subdural hemorrhage, chronic ischemic white matter changes and old infarct. CT [place] was negative for any aneurysm. MRI brain was also obtained, which showed subarachnoid hemorrhage, subdural hemorrhage, and old infarct with chronic ischemic white matter changes. Routine blood test showed acute on chronic kidney failure and for that reason, Nephrology has evaluated this patient. As the patient is in ICU, the patient was also evaluated by Pulmonary and Critical Care group. This morning, the patient had a high blood pressure and that is why, Cardene drip was started. The patient currently denies any chest pain, palpitation, shortness of breath, dizziness, headache. He moves all his four limbs. He denies any fever, chills, nausea, vomiting. REVIEW OF SYSTEMS: CONSTITUTIONAL: Negative for weight loss or gain, ability to conduct usual activities. SKIN: Negative for rash, itching. EYES: Negative for double vision, pain. ENT/MOUTH: Negative for nose bleeding, neck stiffness, pain, tenderness. CARDIOVASCULAR: Negative for palpitations, dyspnea on exertion, orthopnea. RESPIRATORY: Negative for shortness of breath, wheezing, cough, hemoptysis, fever or night sweats. GASTROINTESTINAL: Negative for poor appetite, abdominal pain, heartburn, nausea, vomiting, constipation, or diarrhea. GENITOURINARY: Negative for urgency, frequency, dysuria, nocturia. MUSCULOSKELETAL: Negative for pain, swelling. NEUROLOGIC/PSYCHIATRIC: Negative for anxiety, depression. ALLERGY/IMMUNOLOGIC: Negative for skin rash, bleeding tendency. Please see my HPI for pertinent positives and negatives. All other review of systems reviewed and negative except as mentioned in HPI. PAST MEDICAL HISTORY: Hypertension, history of cerebrovascular accident, dyslipidemia, erectile dysfunction, gout, chronic kidney disease stage 3. PAST SURGICAL HISTORY: Reviewed and negative. PAST PSYCHIATRIC HISTORY: Reviewed and negative. SOCIAL HISTORY: The patient lives at home with family. No history of tobacco, alcohol, or illicit drug abuse. FAMILY HISTORY: No strong family history of premature coronary artery disease, stroke, or cancer. ALLERGIES: LISINOPRIL, GIVES ANGIOEDEMA. CURRENT HOME MEDICATIONS: 1. Allopurinol 100 mg p.o. daily. 2. Amlodipine 5 mg daily. 3. Aspirin 81 mg daily. 4. Folic acid 1 mg daily. 5. Hydralazine 100 mg t.i.d. 6. Omeprazole 20 mg p.o. daily. 7. Thiamine 100 mg p.o. daily. 8. Metoprolol 50 mg p.o. b.i.d. EMERGENCY ROOM COURSE: The patient is given IV fluid 2 and last night, Cardene drip was started. PHYSICAL EXAMINATION: VITAL SIGNS: Currently, temperature 97.9, pulse 86, respiratory rate 16, blood pressure 129/95, weight 193 pounds. GENERAL: The patient is currently alert and awake, in no obvious acute distress. HEENT: Head; normocephalic, atraumatic. Pupils round and reactive to light. Extraocular muscle intact. No nystagmus. NECK: Supple. No JVD. No thyromegaly. No meningeal signs of irritation. LUNGS: Clear to auscultation without any rhonchi or rales. CARDIAC: S1, S2 regular. No murmur. No gallop. No rub. ABDOMEN: Soft. Bowel sounds present. Nontender. Nondistended. No organomegaly. No mass. No suprapubic tenderness. BACK EXAMINATION: Unremarkable. No CVA tenderness. EXTREMITIES: Upper extremities; passive movement of all joints are normal. Lower extremity; no edema. Good distal pulsation. SKIN: No skin rash. HEMATOLOGICAL SYSTEM: No lymphadenopathy. NEUROLOGIC: The patient does not have any meningeal signs of irritation. His mental status is normal. He moves all 4 limbs. His reflexes symmetrical. His sensation is intact. SIGNIFICANT LABORATORY DATA: CBC; WBC 9.1, hemoglobin 14.9, platelet 277. INR 0.9. BMP; sodium 139, potassium 3.4, BUN 30, creatinine 2.49, calcium 10.2. LFT; AST 13, ALT less than 7, alkaline phosphatase 71. CK 228, albumin 3.7, CK-MB 1.9, troponin 0.049. BNP 97.3. TSH 1.13. Urinalysis, unremarkable. Serum drug screen, negative. ASSESSMENT: Impression: 1. Subarachnoid hemorrhage. 2. Subdural hematoma. 3. Acute on chronic kidney failure, baseline chronic kidney disease stage 3. 4. Chronic gout. 5. Hypertension. 6. Dyslipidemia. 7. Gastroesophageal reflux disease. PLAN: 1. I will restart the patient's all antihypertensive medication including hydralazine, amlodipine, and metoprolol tartrate. At the same time, we will try to wean off from Cardene drip. Neurosurgery consulting, Dr. Allen, for possible angiography to rule out any aneurysm. We will defer transfer to Stroke floor to neurosurgeon. We will consider adding nimodipine, if neurosurgeon okay to prevent vasospasm. 2. DVT prophylaxis, SCD boots. No Lovenox because of intracranial hemorrhage. 3. Gastrointestinal prophylaxis, Pepcid 20 mg p.o. b.i.d. CODE STATUS: The patient is full code. The patient does not have any surrogate decision maker. DISPOSITION PLAN: Based on Primary team. Thank you for consult. We will follow up with you while in hospital to manage medical problem while in hospital. Job ID: [id number]
[2018-08-20] MEDS: hydrALAZINE 25 MG TAB PO SCH ×2 (15:20→20:01)
[2018-08-20] MEDS: Famotidine 20 MG TAB PO SCH (20:01)
[2018-08-20] MEDS: Metoprolol Tartrate 50 MG TAB PO SCH (20:02)
[2018-08-20] MEDS: niCARdipine 50 MG in Sodium Chloride 0.9% 250 ML 230 ML IVPB SCH (23:01)
[2018-08-21] MEDS: Acetaminophen 325 MG TAB PO PRN (03:28)
[2018-08-21] MEDS: niCARdipine 50 MG in Sodium Chloride 0.9% 250 ML 230 ML IVPB SCH (05:34)
[2018-08-21] MEDS ORDERED: Potassium Chloride 20 MEQ TAB PO SCH (07:15)
[2018-08-21] MEDS: Sodium Chloride 0.9% 1,000 ML IV SCH ×2 (07:24→20:49)
[2018-08-21] MEDS: Allopurinol 100 MG TAB PO SCH (07:26)
[2018-08-21] MEDS: Thiamine 100 MG TAB PO SCH (07:27)
[2018-08-21] MEDS: Folic Acid 1 MG TAB PO SCH (07:27)
[2018-08-21] MEDS: hydrALAZINE 25 MG TAB PO SCH ×3 (07:27→20:49)
[2018-08-21] MEDS: Famotidine 20 MG TAB PO SCH (07:28)
[2018-08-21] MEDS: Metoprolol Tartrate 50 MG TAB PO SCH (07:28)
[2018-08-21] MEDS: Pantoprazole 40 MG VIAL IVP SCH (07:28)
[2018-08-21] MEDS ORDERED: Heparin 10,000 UNITS/1 ML VIAL ONE ×2 (07:42→07:47)
[2018-08-21] MEDS ORDERED: Amlodipine 5 MG TAB PO SCH (09:00)
--- NOTE | 2018-08-21 09:01 | PRG ---
DATE OF SERVICE: 08/21/2018 SUBJECTIVE: This morning, the patient is awake, alert, responsive. Awaiting for an angiogram to assess the cause of his subarachnoid hemorrhage, to see whether there is aneurysm. OBJECTIVE: VITAL SIGNS: Pulse 113, blood pressure 150/113, respirations 18, and saturations are 100%. CHEST: No wheezing. CARDIAC: Normal S1 and S2. No gallops. ABDOMEN: No masses. IMPRESSION: 1. Subarachnoid hemorrhage. 2. Hypertension. PLAN: Continue supportive care. We will follow in the ICU. Job ID: [id number]
--- NOTE | 2018-08-21 09:33 | PRG ---
DATE OF SERVICE: 08/21/2018 Mr. Jaimes is a 57-year-old gentleman, who presented with abrupt onset of headache as well as altered mental status. He had a noncontrast head CT performed in an outside ER, which was suggestive of subarachnoid hemorrhage. He subsequent to that time had a CT angiogram performed, which was negative for aneurysm or other vascular malformation, which might have been causative of subarachnoid hemorrhage. I met with him in his room this morning. He is alert and oriented. He is back to his baseline exam. Of note, he does have a history of prior CVA, where he has a mild degree of right-sided hemiparesis. He does report headache this morning, which is mild. I had a discussion with him with respect to his imaging diagnosis and the need for more advanced imaging in the way of a conventional angiography to rule out definitive cause for subarachnoid hemorrhage. I did review with him the procedure to be performed. Also discussed with him the risks, benefits, and alternatives to the procedure. I answered his questions and he has offered informed consent. Job ID: [id number]
--- NOTE | 2018-08-21 09:44 | PRG ---
DATE OF SERVICE: 08/21/2018 I came to see Mr. Jaimes. He is down getting his diagnostic angiogram with Dr. Allen. Should this be negative for vascular abnormality, I would favor transfer to the neuro/stroke floor and to our medical service. We will arrange followup with a repeat CT angiogram in a couple of weeks. Job ID: [id number]
[2018-08-21] MEDS ORDERED: NIFEdipine XL 30 MG TAB PO SCH (10:45)
--- NOTE | 2018-08-21 11:49 | PDOC.PN ---
- Subjective Encounter Start Date: 08/21/18 Encounter Start Time: 10:30 Patient seen and examined. No new complaints. No overnight events he had diagnostic cerebral angiography this morning - Objective Resuscitation Status - Order Detail: 08/19/18 13:04 Resuscitation Status Routine Co-Sign Provider: Resuscitation Status: FULL: Full Resuscitation MAR Reviewed: Yes Vital Signs & Weight: Vital Signs (12 hours) Temp Pulse BP 08/21/18 10:45 113 H 150/113 H 08/21/18 07:28 113 H 150/113 H 08/21/18 07:27 113 H 150/113 H 08/21/18 07:00 98.1 F 08/21/18 04:00 97.6 F 08/21/18 00:00 98.0 F Weight Admit Weight 194 lb Weight 194 lb 14.218 oz Most Recent Monitor Data Heart Rate from ECG 62 NIBP 140/101 NIBP BP-Mean 114 Respiration from ECG 24 SpO2 100 I&O: 08/20/18 08/21/18 08/22/18 06:59 06:59 06:59 Intake Total 1515 2418 0 Output Total 550 3209 0 Balance 965 -791 0 Result Diagrams: 08/20/18 07:14 08/20/18 07:14 EKG Reviewed by me: Yes Phys Exam - Physical Examination Constitutional: NAD HEENT: PERRLA, moist MMs, sclera anicteric Neck: no JVD, supple Respiratory: no wheezing, no rales, no rhonchi Cardiovascular: RRR, no significant murmur, no rub Gastrointestinal: soft, non-tender, no distention, positive bowel sounds Musculoskeletal: no edema, pulses present Neurological: non-focal, normal sensation Lymphatic: no nodes Psychiatric: normal affect, A&O x 3 Skin: no rash, normal turgor Dx/Plan (1) Acute worsening of stage 3 chronic kidney disease Code(s): N18.3 - CHRONIC KIDNEY DISEASE, STAGE 3 (MODERATE) Status: Acute (2) GERD (gastroesophageal reflux disease) Code(s): K21.9 - GASTRO-ESOPHAGEAL REFLUX DISEASE WITHOUT ESOPHAGITIS Status: Chronic (3) Hypokalemia Code(s): E87.6 - HYPOKALEMIA Status: Acute (4) Subarachnoid hemorrhage Code(s): I60.9 - NONTRAUMATIC SUBARACHNOID HEMORRHAGE, UNSPECIFIED Status: Acute (5) Subdural hematoma Code(s): S06.5X9A - TRAUM SUBDR HEM W LOC OF UNSP DURATION, INIT Status: Acute (6) Gout Code(s): M10.9 - GOUT, UNSPECIFIED Status: Chronic (7) HLD (hyperlipidemia) Code(s): E78.5 - HYPERLIPIDEMIA, UNSPECIFIED Status: Chronic (8) Hypertension Code(s): I10 - ESSENTIAL (PRIMARY) HYPERTENSION Status: Chronic - Plan cont current plan of care * today will dc amlodipine and change to procardia xl * medication reviewed as below * symptomatic treatment * will wean off cardene drip and then transfer to stroke floor as per neurosurgery * will start PT/OT * will adjust BP meds. Review of Systems - Review of Systems ENT: negative: Ear Pain, Ear Discharge, Nose Pain, Nose Discharge, Nose Congestion, Mouth Pain, Mouth Swelling, Throat Pain, Throat Swelling, Other Respiratory: negative: Cough, Dry, Shortness of Breath, Hemoptysis, SOB with Excertion, Pleuritic Pain, Sputum, Wheezing Cardiovascular: negative: chest pain, palpitations, orthopnea, paroxysmal nocturnal dyspnea, edema, light headedness, other Gastrointestinal: negative: Nausea, Vomiting, Abdominal Pain, Diarrhea, Constipation, Melena, Hematochezia, Other Genitourinary: negative: Dysuria, Frequency, Incontinence, Hematuria, Retention , Other Musculoskeletal: negative: Neck Pain, Shoulder Pain, Arm Pain, Back Pain, Hand Pain, Leg Pain, Foot Pain, Other Skin: negative: Rash, Lesions, Rory, Bruising, Other - Medications/Allergies Allergies/Adverse Reactions: Allergies Allergy/AdvReac Type Severity Reaction Status Date / Time lisinopril Allergy Verified 01/21/15 12:30 Medications: Current Medications Acetaminophen (Tylenol) 650 mg PO Q4H PRN PRN Reason: Headache/Fever/Mild Pain (1-3) Last Admin: 08/21/18 03:28 Dose: 650 mg Allopurinol (Zyloprim) 100 mg PO DAILY [facility] Last Admin: 08/21/18 07:26 Dose: 100 mg Artificial Tears (Tears Naturale) 2 drop EA EYE PRN PRN PRN Reason: Dry Eyes Bisacodyl (Dulcolax) 10 mg [place] DAILYPRN PRN PRN Reason: Constipation Folic Acid (Folvite) 1 mg PO DAILY [facility] Last Admin: 08/21/18 07:27 Dose: 1 mg Hydralazine HCl (Apresoline) 10 mg SLOW IVP Q15MIN PRN PRN Reason: SBP greater than 150 Last Admin: 08/20/18 06:12 Dose: 10 mg Hydralazine HCl (Apresoline) 100 mg PO TID [facility] Last Admin: 08/21/18 07:27 Dose: 100 mg Sodium Chloride (Normal Saline 0.9%) 1,000 mls @ 75 mls/hr IV .[id number] [facility] Last Admin: 08/21/18 07:24 Dose: 1,000 mls Nicardipine HCl 50 mg/ Sodium (Chloride) 250 mls @ 0 mls/hr IVPB INF [facility] Last Admin: 08/21/18 05:34 Dose: 250 mls Labetalol HCl (Normodyne) 20 mg SLOW IVP Q4H PRN PRN Reason: SBP > 150 Last Admin: 08/19/18 23:48 Dose: 20 mg Metoprolol Tartrate (Lopressor) 50 mg PO BID [facility] Last Admin: 08/21/18 07:28 Dose: 50 mg Nifedipine (Procardia Xl) 30 mg PO DAILY [facility] Nifedipine (Procardia Xl) 30 mg PO NOW [facility] Stop: 08/21/18 13:00 Last Admin: 08/21/18 10:45 Dose: 30 mg Ondansetron HCl (Zofran) 4 mg IVP Q6H PRN PRN Reason: Nausea/Vomiting Pantoprazole Sodium (Protonix) 40 mg IVP DAILY [facility] Last Admin: 08/21/18 07:28 Dose: Not Given Senna/Docusate Sodium (Senokot S) 2 tab PO BID PRN PRN Reason: Constipation Sodium Chloride (Flush - Normal Saline) 10 ml IVF PRN PRN PRN Reason: Saline Flush Sodium Chloride ([place] Nasal [place] 0.65%) 0 ml EA NARE QIDPRN PRN PRN Reason: Nasal Congestion Thiamine HCl (Thiamine) 100 mg PO DAILY [facility] Last Admin: 08/21/18 07:27 Dose: 100 mg Throat Lozenges (Cepastat Lozenges) 1 silverio PO Q2H PRN PRN Reason: Sore Throat
--- NOTE | 2018-08-21 12:55 | EKG ---
Test Reason : STROKE Blood Pressure : / mmHG Vent. Rate : 095 BPM Atrial Rate : 095 BPM P-R Int : 126 ms QRS Dur : 094 ms QT Int : 416 ms P-R-T Axes : 080 -31 101 degrees QTc Int : 522 ms Sinus rhythm with Premature ventricular complexes or Fusion complexes Left axis deviation Pulmonary disease pattern Marked ST abnormality, possible lateral subendocardial injury Prolonged QT Abnormal ECG Confirmed by AD MARSHALL, TYRA ([id number]), assistant film editor RAUL MEYER ([id number]) on 08/21/2018 12:55:04 PM Referred By: AD Confirmed By:TYRA DUONG MD
[2018-08-21] MEDS ORDERED: Iopamidol 370 76% 100 ML VIAL ONE (12:58)
[2018-08-21] MEDS ORDERED: Iopamidol 370 76% 50 ML VIAL FS ONE (12:58)
[2018-08-21] MEDS: Carvedilol 25 MG TAB PO SCH (16:33)
--- NOTE | 2018-08-21 16:50 | PRG ---
DATE OF SERVICE: 08/21/2018 SUBJECTIVE: Patient was seen and examined at bedside and overnight events noted. Patient denies any shortness of breath or chest pain or palpitation. No history of nausea or vomiting or diarrhea or fever or chills or cramps. OBJECTIVE: GENERAL: This is a well-built male, in no apparent distress. VITAL SIGNS: Temperature 98.1. Heart rate 81. Respiratory rate 18. Blood pressure . HEENT: Atraumatic, normocephalic. Oral mucosa is moist. NECK: Supple. CARDIOVASCULAR: S1, S2 heard. Rate and rhythm regular. RESPIRATORY: Clear to auscultation. GASTROINTESTINAL: Abdomen is soft. MUSCULOSKELETAL: No tenderness. No edema. DERMATOLOGIC: No skin rash. NEUROLOGIC: Alert and awake and oriented x3. No focal neurologic deficits. Moving all the extremities. PSYCHIATRIC: Mood and affect normal. LABORATORY DATA: No labs done today. ASSESSMENT AND PLAN: 1. Acute kidney injury on chronic kidney disease, stage 3. We will check labs in the morning. 2. Hypokalemia, replaced. 3. Metabolic acidosis. 4. Proteinuria. 5. Edema, controlled. 6. Hypertension, titrate medication. Repeat labs in the morning. We will follow. Job ID: [id number]
[2018-08-21 17:15] LABS: ANA Symphony (Qualitative) Negative (Negative); ANA Symphony (Quantitative) 0.1 Ratio (< 0.7 Negative); dsDNA IgG Antibody 0.8 IU/mL (<10 Negative)
[2018-08-21] MEDS: NIFEdipine XL 30 MG TAB PO SCH (20:50)
[2018-08-21] MEDS: Prazosin HCl 1 MG CAP PO SCH (20:50)
[2018-08-22] MEDS: niCARdipine 50 MG in Sodium Chloride 0.9% 250 ML 230 ML IVPB SCH (01:47)
[2018-08-22 05:31] LABS: Anion Gap 18 mmol/L (10-20); BUN (Urea Nitrogen) 21 mg/dL (8.4-25.7); Calc. Creatinine Clearance 57 mL/min (70-130); Carbon Dioxide 16 mmol/L (22-29); Chloride 99 mmol/L (98-107); Estimated GFR-MDRD 48; Glucose 81 mg/dL (70-105); Potassium 3.7 mmol/L (3.5-5.1); Sodium 129 mmol/L (136-145)
[2018-08-22] MEDS: Carvedilol 25 MG TAB PO SCH ×2 (07:16→16:25)
[2018-08-22] MEDS: Allopurinol 100 MG TAB PO SCH (07:16)
[2018-08-22] MEDS: Prazosin HCl 1 MG CAP PO SCH ×2 (07:16→20:33)
[2018-08-22] MEDS: hydrALAZINE 25 MG TAB PO SCH ×3 (07:17→20:32)
[2018-08-22] MEDS: Thiamine 100 MG TAB PO SCH (07:17)
[2018-08-22] MEDS: Folic Acid 1 MG TAB PO SCH (07:17)
[2018-08-22] MEDS: Pantoprazole 40 MG VIAL IVP SCH (07:18)
[2018-08-22] MEDS: NIFEdipine XL 30 MG TAB PO SCH ×2 (07:19→20:33)
[2018-08-22] MEDS ORDERED: NIFEdipine XL 30 MG TAB PO SCH (09:00)
--- NOTE | 2018-08-22 09:05 | PRG ---
DATE OF SERVICE: 08/22/2018 SUBJECTIVE: This morning, awake, alert, responsive, no further headache. OBJECTIVE: VITAL SIGNS: Blood pressure is improved now 108/85, pulse 113, respiratory rate 18, and saturations 92%. GENERAL: Awake, moves all 4 extremities. CHEST: No crackles or wheezing. CARDIAC: Normal S1, S2. No gallops. ABDOMEN: No masses. LABORATORY DATA: Creatinine is 1.79 at his baseline. IMPRESSION: 1. Subarachnoid hemorrhage. 2. Hypertension. PLAN: Once his nicardipine is discontinued, he can probably go to a medical floor. Disposition as per primary care physician. Pulmonary will follow at a distance once out of the ICU. Job ID: [id number]
[2018-08-22] MEDS: Sodium Chloride 0.9% 1,000 ML IV SCH (10:00)
--- NOTE | 2018-08-22 11:54 | PRG ---
DATE OF SERVICE: 08/22/2018 SUBJECTIVE: Patient was seen and examined at bedside and overnight events noted. Patient denies any shortness of breath or chest pain or palpitation. No history of nausea or vomiting or diarrhea or fever or chills or cramps. OBJECTIVE: GENERAL: This is a well-built male, in no apparent distress. VITAL SIGNS: Temperature 97.7. Heart rate 77. Respiratory rate 18. Blood pressure . HEENT: Atraumatic, normocephalic. Oral mucosa is moist NECK: Supple. CARDIOVASCULAR: S1, S2 heard. Rate and rhythm regular. RESPIRATORY: Clear to auscultation. GASTROINTESTINAL: Abdomen is soft. MUSCULOSKELETAL: No tenderness. No edema. DERMATOLOGIC: No skin rash. NEUROLOGIC: Alert and awake and oriented X3. No focal neurologic deficits. Moving all the extremities. PSYCHIATRIC: Mood and affect normal. LABORATORY DATA: Potassium 3.7, BUN is 21, creatinine is 1.7, and sodium is 129. ASSESSMENT AND PLAN: 1. Acute kidney injury, stable. 2. Chronic kidney disease stage 3, getting better. 3. Hyponatremia. 4. Hypokalemia, better. 5. Metabolic acidosis, stable. 6. Edema, controlled. 7. Hypertension, stable. 8. Proteinuria. Labs are getting better. Avoid nephrotoxins. Job ID: [id number]
--- NOTE | 2018-08-22 12:03 | PDOC.PN ---
- Subjective Encounter Start Date: 08/22/18 Encounter Start Time: 09:00 Patient seen and examined. No new complaints. No overnight events today his BP well controlled and he is off cardene drip - Objective Resuscitation Status - Order Detail: 08/19/18 13:04 Resuscitation Status Routine Co-Sign Provider: Resuscitation Status: FULL: Full Resuscitation MAR Reviewed: Yes Vital Signs & Weight: Vital Signs (12 hours) Temp Pulse BP Pulse Ox 08/22/18 07:19 74 139/99 H 08/22/18 07:17 74 139/99 H 08/22/18 07:00 97.7 F 08/22/18 06:54 100 Weight Admit Weight 194 lb Weight 199 lb 8.293 oz Most Recent Monitor Data Heart Rate from ECG 83 NIBP 118/100 NIBP BP-Mean 106 Respiration from ECG 26 SpO2 100 I&O: 08/21/18 08/22/18 08/23/18 06:59 06:59 06:59 Intake Total 2418 2669 920 Output Total 3209 2003 800 Balance -791 666 120 Result Diagrams: 08/20/18 07:14 08/22/18 05:05 EKG Reviewed by me: Yes (nsr) Phys Exam - Physical Examination Constitutional: NAD HEENT: PERRLA, moist MMs, sclera anicteric Neck: no JVD, supple Respiratory: no wheezing, no rales, no rhonchi Cardiovascular: RRR, no significant murmur, no rub Gastrointestinal: soft, non-tender, no distention, positive bowel sounds Musculoskeletal: no edema, pulses present Neurological: non-focal, normal sensation, moves all 4 limbs Psychiatric: normal affect, A&O x 3 Skin: no rash, normal turgor Dx/Plan (1) Acute worsening of stage 3 chronic kidney disease Code(s): N18.3 - CHRONIC KIDNEY DISEASE, STAGE 3 (MODERATE) Status: Acute (2) GERD (gastroesophageal reflux disease) Code(s): K21.9 - GASTRO-ESOPHAGEAL REFLUX DISEASE WITHOUT ESOPHAGITIS Status: Chronic (3) Hypokalemia Code(s): E87.6 - HYPOKALEMIA Status: Acute (4) Subarachnoid hemorrhage Code(s): I60.9 - NONTRAUMATIC SUBARACHNOID HEMORRHAGE, UNSPECIFIED Status: Acute (5) Subdural hematoma Code(s): S06.5X9A - TRAUM SUBDR HEM W LOC OF UNSP DURATION, INIT Status: Acute (6) Gout Code(s): M10.9 - GOUT, UNSPECIFIED Status: Chronic (7) HLD (hyperlipidemia) Code(s): E78.5 - HYPERLIPIDEMIA, UNSPECIFIED Status: Chronic (8) Hypertension Code(s): I10 - ESSENTIAL (PRIMARY) HYPERTENSION Status: Chronic - Plan cont current plan of care, PT/OT, social media director * currently on multiple BP meds: procardia xl 30 mg po bid * hydralazin 100 mg po tid * coreg 25 mg po bid * mimipress 1 mg po bid * will transfer to stroke floor * seems like he may need rehab on discharge * medication reviewed as below * symptomatic treatment. Review of Systems - Review of Systems ENT: negative: Ear Pain, Ear Discharge, Nose Pain, Nose Discharge, Nose Congestion, Mouth Pain, Mouth Swelling, Throat Pain, Throat Swelling, Other Respiratory: negative: Cough, Dry, Shortness of Breath, Hemoptysis, SOB with Excertion, Pleuritic Pain, Sputum, Wheezing Cardiovascular: negative: chest pain, palpitations, orthopnea, paroxysmal nocturnal dyspnea, edema, light headedness, other Gastrointestinal: negative: Nausea, Vomiting, Abdominal Pain, Diarrhea, Constipation, Melena, Hematochezia, Other Genitourinary: negative: Dysuria, Frequency, Incontinence, Hematuria, Retention , Other Musculoskeletal: negative: Neck Pain, Shoulder Pain, Arm Pain, Back Pain, Hand Pain, Leg Pain, Foot Pain, Other Skin: negative: Rash, Lesions, Rory, Bruising, Other - Medications/Allergies Allergies/Adverse Reactions: Allergies Allergy/AdvReac Type Severity Reaction Status Date / Time lisinopril Allergy Verified 01/21/15 12:30 Medications: Current Medications Acetaminophen (Tylenol) 650 mg PO Q4H PRN PRN Reason: Headache/Fever/Mild Pain (1-3) Last Admin: 08/21/18 03:28 Dose: 650 mg Allopurinol (Zyloprim) 100 mg PO DAILY [facility] Last Admin: 08/22/18 07:16 Dose: 100 mg Artificial Tears (Tears Naturale) 2 drop EA EYE PRN PRN PRN Reason: Dry Eyes Bisacodyl (Dulcolax) 10 mg AR DAILYPRN PRN PRN Reason: Constipation Carvedilol (Coreg) 25 mg PO BID-[facility] Last Admin: 08/22/18 07:16 Dose: 25 mg Folic Acid (Folvite) 1 mg PO DAILY [facility] Last Admin: 08/22/18 07:17 Dose: 1 mg Hydralazine HCl (Apresoline) 10 mg SLOW IVP Q15MIN PRN PRN Reason: SBP greater than 150 Last Admin: 08/20/18 06:12 Dose: 10 mg Hydralazine HCl (Apresoline) 100 mg PO TID [facility] Last Admin: 08/22/18 07:17 Dose: 100 mg Sodium Chloride (Normal Saline 0.9%) 1,000 mls @ 75 mls/hr IV .[id number] [facility] Last Admin: 08/22/18 10:00 Dose: 1,000 mls Nicardipine HCl 50 mg/ Sodium (Chloride) 250 mls @ 0 mls/hr IVPB INF [facility] Last Admin: 08/22/18 01:47 Dose: 250 mls Labetalol HCl (Normodyne) 20 mg SLOW IVP Q4H PRN PRN Reason: SBP > 150 Last Admin: 08/19/18 23:48 Dose: 20 mg Nifedipine (Procardia Xl) 30 mg PO Q12HR [facility] Last Admin: 08/22/18 07:19 Dose: 30 mg Ondansetron HCl (Zofran) 4 mg IVP Q6H PRN PRN Reason: Nausea/Vomiting Pantoprazole Sodium (Protonix) 40 mg IVP DAILY [facility] Last Admin: 08/22/18 07:18 Dose: 40 mg Prazosin HCl (Minipress) 1 mg PO BID [facility] Last Admin: 08/22/18 07:16 Dose: 1 mg Senna/Docusate Sodium (Senokot S) 2 tab PO BID PRN PRN Reason: Constipation Sodium Chloride (Flush - Normal Saline) 10 ml IVF PRN PRN PRN Reason: Saline Flush Sodium Chloride ([place] Nasal [place] 0.65%) 0 ml EA NARE QIDPRN PRN PRN Reason: Nasal Congestion Thiamine HCl (Thiamine) 100 mg PO DAILY [facility] Last Admin: 08/22/18 07:17 Dose: 100 mg Throat Lozenges (Cepastat Lozenges) 1 silverio PO Q2H PRN PRN Reason: Sore Throat
[2018-08-23] MEDS: Labetalol HCl 100 MG/20 ML VIAL SLOW IVP PRN ×2 (03:48→12:24)
[2018-08-23] MEDS: hydrALAZINE 20 MG/ML VIAL SLOW IVP PRN (04:57)
[2018-08-23 06:01] LABS: Anion Gap 16 mmol/L (10-20); BUN (Urea Nitrogen) 23 mg/dL (8.4-25.7); Calc. Creatinine Clearance 59 mL/min (70-130); Calcium 9.8 mg/dL (7.8-10.44); Carbon Dioxide 18 mmol/L (22-29); Chloride 97 mmol/L (98-107); Estimated GFR-MDRD 48; Glucose 91 mg/dL (70-105); Potassium 3.5 mmol/L (3.5-5.1); Sodium 127 mmol/L (136-145)
[2018-08-23] MEDS: Thiamine 100 MG TAB PO SCH (07:23)
[2018-08-23] MEDS: NIFEdipine XL 30 MG TAB PO SCH ×2 (07:23→20:56)
[2018-08-23] MEDS: Allopurinol 100 MG TAB PO SCH (07:23)
[2018-08-23] MEDS: Prazosin HCl 1 MG CAP PO SCH ×2 (07:23→20:56)
[2018-08-23] MEDS: hydrALAZINE 25 MG TAB PO SCH ×3 (07:23→20:56)
[2018-08-23] MEDS: Folic Acid 1 MG TAB PO SCH (07:23)
[2018-08-23] MEDS: Pantoprazole 40 MG VIAL IVP SCH (07:23)
[2018-08-23] MEDS: Carvedilol 25 MG TAB PO SCH ×2 (07:23→16:16)
--- NOTE | 2018-08-23 09:43 | PRG ---
DATE OF SERVICE: 08/23/2018 SUBJECTIVE: Kyle Jaimes is a 57-year-old gentleman, this morning, awake and responsive. OBJECTIVE: VITAL SIGNS: Blood pressure 100/54, saturations are 100% on room air, respiratory rate 16, temperature 98, pulse 84. GENERAL: No pain or discomfort. CHEST: Decreased breath sounds. No wheezing. CARDIAC: Normal S1 and S2. No gallops. ABDOMEN: No masses. LABORATORY DATA: Sodium is 127, creatinine 1.78, stable. ASSESSMENT: 1. Hyponatremia. 2. Renal failure. 3. Subarachnoid hemorrhage. 4. Hypertension. PLAN: The patient is stable enough to be transferred out of the ICU. Continue supportive care. Continue to follow sodium. We will follow while in the ICU. Job ID: [id number]
[2018-08-23] MEDS ORDERED: Potassium Chloride 20 MEQ TAB PO SCH (11:15)
--- NOTE | 2018-08-23 11:37 | PRG ---
DATE OF SERVICE: 08/23/2018 SUBJECTIVE: Patient was seen and examined at bedside and overnight events noted. Patient denies any shortness of breath or chest pain or palpitation. No history of nausea or vomiting or diarrhea or fever or chills or cramps. OBJECTIVE: GENERAL: This is a well-built male, in no apparent distress. VITAL SIGNS: Temperature 98.3. Heart rate 84. Respiratory rate 20. Blood pressure 135/105. HEENT: Atraumatic, normocephalic. Oral mucosa is moist NECK: Supple. CARDIOVASCULAR: S1, S2 heard. Rate and rhythm regular. RESPIRATORY: Clear to auscultation. GASTROINTESTINAL: Abdomen is soft. MUSCULOSKELETAL: No tenderness. No edema. DERMATOLOGIC: No skin rash. NEUROLOGIC: Alert and awake and oriented X3. No focal neurologic deficits. Moving all the extremities. PSYCHIATRIC: Mood and affect normal. LABORATORY DATA: Sodium is 127, potassium is 3.5, BUN is 23, and creatinine is 1.7. ASSESSMENT AND PLAN: 1. Acute kidney injury, much better. 2. Chronic kidney disease, stage 3, stable. 3. Hyponatremia . We will limit fluid intake. 4. Hypokalemia, better. 5. Metabolic acidosis and edema. 6. Hypertension. We will replace potassium and limit fluid intake. We will follow. Job ID: [id number]
--- NOTE | 2018-08-23 11:56 | PDOC.PN ---
- Subjective Encounter Start Date: 08/23/18 Encounter Start Time: 10:30 Patient seen and examined. No new complaints. No overnight events pt has tremors - Objective Resuscitation Status - Order Detail: 08/19/18 13:04 Resuscitation Status Routine Co-Sign Provider: Resuscitation Status: FULL: Full Resuscitation MAR Reviewed: Yes Vital Signs & Weight: Vital Signs (12 hours) Temp Pulse Resp BP BP Pulse Ox 08/23/18 11:00 98.8 F 90 16 08/23/18 08:33 98.3 F 84 16 100/54 L 100 08/23/18 07:23 93 08/23/18 07:00 98.6 F 93 18 155/98 H 100 08/23/18 04:57 86 155/112 H 08/23/18 04:00 99.2 F 08/23/18 03:48 101 H 135/116 H 08/23/18 00:00 98.8 F Weight Admit Weight 194 lb Weight 199 lb 4.766 oz Most Recent Monitor Data Heart Rate from ECG 93 NIBP 135/105 NIBP BP-Mean 115 Respiration from ECG 33 SpO2 67 I&O: 08/22/18 08/23/18 08/24/18 06:59 06:59 06:59 Intake Total 2669 2064 240 Output Total 2002 1300 0 Balance 666 764 240 Result Diagrams: 08/20/18 07:14 08/23/18 05:21 EKG Reviewed by me: Yes Phys Exam - Physical Examination Constitutional: NAD HEENT: PERRLA, moist MMs, sclera anicteric Neck: no JVD, supple Respiratory: no wheezing, no rales, no rhonchi Cardiovascular: RRR, no significant murmur, no rub Gastrointestinal: soft, non-tender, no distention, positive bowel sounds Musculoskeletal: no edema, pulses present Neurological: non-focal, normal sensation tremor+ Lymphatic: no nodes Psychiatric: normal affect Skin: no rash, normal turgor Dx/Plan (1) Acute worsening of stage 3 chronic kidney disease Code(s): N18.3 - CHRONIC KIDNEY DISEASE, STAGE 3 (MODERATE) Status: Acute (2) GERD (gastroesophageal reflux disease) Code(s): K21.9 - GASTRO-ESOPHAGEAL REFLUX DISEASE WITHOUT ESOPHAGITIS Status: Chronic (3) Hypokalemia Code(s): E87.6 - HYPOKALEMIA Status: Acute (4) Subarachnoid hemorrhage Code(s): I60.9 - NONTRAUMATIC SUBARACHNOID HEMORRHAGE, UNSPECIFIED Status: Acute (5) Subdural hematoma Code(s): S06.5X9A - TRAUM SUBDR HEM W LOC OF UNSP DURATION, INIT Status: Acute (6) Gout Code(s): M10.9 - GOUT, UNSPECIFIED Status: Chronic (7) HLD (hyperlipidemia) Code(s): E78.5 - HYPERLIPIDEMIA, UNSPECIFIED Status: Chronic (8) Hypertension Code(s): I10 - ESSENTIAL (PRIMARY) HYPERTENSION Status: Chronic (9) Tremor Code(s): R25.1 - TREMOR, UNSPECIFIED Status: Acute Comment: ? parkinson (10) Hyponatremia Code(s): E87.1 - HYPO-OSMOLALITY AND HYPONATREMIA Status: Acute - Plan cont current plan of care, plan discussed w/ family, PT/OT, social security benefits interviewer * will consult neurology for tremors * medication reviewed as below * symptomatic treatment * await bed availability at stroke floor * discussed with * may need placement. * DC IVF Review of Systems - Review of Systems ENT: negative: Ear Pain, Ear Discharge, Nose Pain, Nose Discharge, Nose Congestion, Mouth Pain, Mouth Swelling, Throat Pain, Throat Swelling, Other Respiratory: negative: Cough, Dry, Shortness of Breath, Hemoptysis, SOB with Excertion, Pleuritic Pain, Sputum, Wheezing Cardiovascular: negative: chest pain, palpitations, orthopnea, paroxysmal nocturnal dyspnea, edema, light headedness, other Gastrointestinal: negative: Nausea, Vomiting, Abdominal Pain, Diarrhea, Constipation, Melena, Hematochezia, Other Genitourinary: negative: Dysuria, Frequency, Incontinence, Hematuria, Retention , Other Musculoskeletal: negative: Neck Pain, Shoulder Pain, Arm Pain, Back Pain, Hand Pain, Leg Pain, Foot Pain, Other - Medications/Allergies Allergies/Adverse Reactions: Allergies Allergy/AdvReac Type Severity Reaction Status Date / Time lisinopril Allergy Verified 01/21/15 12:30 Medications: Current Medications Acetaminophen (Tylenol) 650 mg PO Q4H PRN PRN Reason: Headache/Fever/Mild Pain (1-3) Last Admin: 08/21/18 03:28 Dose: 650 mg Allopurinol (Zyloprim) 100 mg PO DAILY [facility] Last Admin: 08/23/18 07:23 Dose: 100 mg Artificial Tears (Tears Naturale) 2 drop EA EYE PRN PRN PRN Reason: Dry Eyes Bisacodyl (Dulcolax) 10 mg HI DAILYPRN PRN PRN Reason: Constipation Carvedilol (Coreg) 25 mg PO BID[facility] Last Admin: 08/23/18 07:23 Dose: 25 mg Folic Acid (Folvite) 1 mg PO DAILY [facility] Last Admin: 08/23/18 07:23 Dose: 1 mg Hydralazine HCl (Apresoline) 10 mg SLOW IVP Q15MIN PRN PRN Reason: SBP greater than 150 Last Admin: 08/23/18 04:57 Dose: 10 mg Hydralazine HCl (Apresoline) 100 mg PO TID [facility] Last Admin: 08/23/18 07:23 Dose: 100 mg Nicardipine HCl 50 mg/ Sodium (Chloride) 250 mls @ 0 mls/hr IVPB INF [facility] Last Admin: 08/22/18 01:47 Dose: 250 mls Labetalol HCl (Normodyne) 20 mg SLOW IVP Q4H PRN PRN Reason: SBP > 150 Last Admin: 08/23/18 03:48 Dose: 20 mg Nifedipine (Procardia Xl) 30 mg PO Q12HR [facility] Last Admin: 08/23/18 07:23 Dose: 30 mg Ondansetron HCl (Zofran) 4 mg IVP Q6H PRN PRN Reason: Nausea/Vomiting Pantoprazole Sodium (Protonix) 40 mg IVP DAILY [facility] Last Admin: 08/23/18 07:23 Dose: 40 mg Potassium Chloride (K-Dur) 40 meq PO NOW [facility] Stop: 08/23/18 13:00 Prazosin HCl (Minipress) 1 mg PO BID [facility] Last Admin: 08/23/18 07:23 Dose: 1 mg Senna/Docusate Sodium (Senokot S) 2 tab PO BID PRN PRN Reason: Constipation Sodium Chloride (Flush - Normal Saline) 10 ml IVF PRN PRN PRN Reason: Saline Flush Sodium Chloride ([place] Nasal [place] 0.65%) 0 ml EA NARE QIDPRN PRN PRN Reason: Nasal Congestion Thiamine HCl (Thiamine) 100 mg PO DAILY [facility] Last Admin: 08/23/18 07:23 Dose: 100 mg Throat Lozenges (Cepastat Lozenges) 1 silverio PO Q2H PRN PRN Reason: Sore Throat
[2018-08-24] MEDS ORDERED: Labetalol HCl 100 MG/20 ML VIAL ONE (04:43)
[2018-08-24] MEDS: Labetalol HCl 100 MG/20 ML VIAL SLOW IVP PRN ×2 (04:48→07:36)
[2018-08-24 04:52] LABS: Anion Gap 17 mmol/L (10-20); BUN (Urea Nitrogen) 28 mg/dL (8.4-25.7); Calc. Creatinine Clearance 48 mL/min (70-130); Calcium 9.9 mg/dL (7.8-10.44); Carbon Dioxide 17 mmol/L (22-29); Chloride 98 mmol/L (98-107); Estimated GFR-MDRD 38; Glucose 97 mg/dL (70-105); Sodium 128 mmol/L (136-145)
--- NOTE | 2018-08-24 07:14 | CT ---
CT BRAIN WITHOUT CONTRAST: Date: 08/24/18 INDICATION: Follow-up intracranial hemorrhage. COMPARISON: CT brain dated 08/19/18. FINDINGS: The extent of the subarachnoid hemorrhage seen within the prepontine cistern and within the subarachn oid space adjacent to the left CP angle is relatively stable. There is stable layered hemorrhage seen along the left aspect of the tentorium. There is hemorrhage now layering within the posterior horns of the lateral ventricles bilaterally. No donald hydrocephalus is evident. No midline shift is present . Moderate to severe chronic small vessel white matter ischemic change is stable. Lacunar infarcts in volving the left caudate head and bilateral thalami are stable. Skull and extracranial soft tissues a ppear within normal limits. Mucus retention cysts are again seen within the inferior aspects of both maxillary sinuses. IMPRESSION: 1. Largely stable intracranial hemorrhage with interval redistribution of hemorrhage seen within the ventricular system. There is now layered hemorrhage seen within the posterior horns of the lateral v entricle. No donald hydrocephalus or midline shift is evident. 2. Stable moderate to severe chronic small vessel white matter ischemic change and diffuse cerebral atrophy. POS: JUS
[2018-08-24] MEDS: Carvedilol 25 MG TAB PO SCH ×2 (07:34→18:07)
[2018-08-24] MEDS: hydrALAZINE 25 MG TAB PO SCH ×3 (08:01→20:25)
[2018-08-24] MEDS: Allopurinol 100 MG TAB PO SCH (08:01)
[2018-08-24] MEDS: Thiamine 100 MG TAB PO SCH (08:02)
[2018-08-24] MEDS: Pantoprazole 40 MG VIAL IVP SCH (08:02)
[2018-08-24] MEDS: NIFEdipine XL 30 MG TAB PO SCH ×3 (08:02→20:45)
[2018-08-24] MEDS: Folic Acid 1 MG TAB PO SCH (08:02)
--- NOTE | 2018-08-24 08:23 | PRG ---
DATE OF SERVICE: 08/24/2018 SUBJECTIVE: This morning, the patient is slightly responsive. OBJECTIVE: VITAL SIGNS: His blood pressure is 151/100, pulse 91, afebrile, respiratory rate 18. CHEST: Anterior rhonchi. CARDIAC: Normal S1 and S2. No gallops. ABDOMEN: No masses. IMPRESSION: Large intracerebral hemorrhage, hyponatremia, renal failure, hypertension. PLAN: At this stage, continue supportive care. Control blood pressure. Concerned about his . Otherwise, continue observation in the ICU. Job ID: [id number]
--- NOTE | 2018-08-24 09:44 | PRG ---
DATE OF SERVICE: 08/24/2018 This is Saturnino Romero PA-C dictating a report for Eliud Moore MD. This is a 15-minute subsequent patient evaluation, in which greater than 50% of the exam was spent in counseling and coordinating the patient's care. Remainder of the exam was spent in review of the patient's medical records and formulation of treatment plan and review of appropriate imaging studies. SUBJECTIVE: Mr. Jaimes is seen in followup, having sustained the angio-negative subarachnoid hemorrhage. Earlier this morning, apparently, the patient had an incident in which he became very drowsy and nonverbal. Repeat head CT was done that shows essentially redistribution of his subarachnoid hemorrhage, but continues to have some layering of blood around the left tentorium as well as some bilateral posterior horn blood collection in the bilateral ventricles. There is no evidence of hydrocephalus, and there is no compressive lesion in regard to the hemorrhage. On exam, the patient is awake and alert. He does say good morning and he shakes his head yes when we say he have a headache. He moves all extremities equally and I cannot appreciate any type of right-sided weakness. It does not appear that he is having any seizure-like activity, although he does have a little bit of tremor like activity in all the extremities with some movement. Of note, the patient's sodium is 128, and his blood pressure has been very high, systolic being in the 150s and diastolic in the 100s. He likely should have his Cardene restarted, and we asked that Nephrology and Medicine help with managing his kidney function as well as his hyponatremia. I believe that this is a significant cause of the patient's altered mental status. There is no need for any type of the EVD or neurosurgical intervention. We will also await the recommendations of Neurology. The patient again is neurologically stable at this time. Please call with any changes in patient's neurologic status. Nursing staff has been updated at bedside. Job ID: [id number]
[2018-08-24] MEDS: Prazosin HCl 1 MG CAP PO SCH ×3 (09:51→20:28)
--- NOTE | 2018-08-24 11:20 | PDOC.PN ---
- Subjective Encounter Start Date: 08/24/18 Encounter Start Time: 10:15 -: old records requested/rev today pt has change in neuro status, he has difficulty swallowing and he is more weak, Patient seen and examined. No new complaints. No overnight events - Objective Resuscitation Status - Order Detail: 08/19/18 13:04 Resuscitation Status Routine Co-Sign Provider: Resuscitation Status: FULL: Full Resuscitation MAR Reviewed: Yes Vital Signs & Weight: Vital Signs (12 hours) Temp Pulse BP Pulse Ox 08/24/18 09:00 98.7 F 08/24/18 08:02 95 154/110 H 08/24/18 08:01 95 154/110 H 08/24/18 08:00 98.7 F 100 08/24/18 07:36 95 154/110 H 08/24/18 04:49 95 141/110 H 08/24/18 04:48 95 141/110 H 08/24/18 04:00 98.3 F 08/24/18 00:00 100.9 F H Weight Admit Weight 194 lb Weight 193 lb 1.999 oz Most Recent Monitor Data Heart Rate from ECG 92 NIBP 130/99 NIBP BP-Mean 109 Respiration from ECG 27 SpO2 100 I&O: 08/23/18 08/24/18 08/25/18 06:59 06:59 06:59 Intake Total 2064 820 100 Output Total 1300 800 1 Balance 764 20 99 Result Diagrams: 08/20/18 07:14 08/24/18 04:15 Radiology Reviewed by me: Yes (CT brain reviewed ) EKG Reviewed by me: Yes (NSR) Phys Exam - Physical Examination Constitutional: NAD HEENT: PERRLA, moist MMs, sclera anicteric Neck: no JVD, supple Respiratory: no wheezing, no rales, no rhonchi Cardiovascular: RRR, no significant murmur, no rub Gastrointestinal: soft, non-tender, no distention, positive bowel sounds Musculoskeletal: no edema, pulses present weakness, Lymphatic: no nodes Psychiatric: normal affect Skin: no rash, normal turgor Dx/Plan (1) Acute worsening of stage 3 chronic kidney disease Code(s): N18.3 - CHRONIC KIDNEY DISEASE, STAGE 3 (MODERATE) Status: Acute (2) GERD (gastroesophageal reflux disease) Code(s): K21.9 - GASTRO-ESOPHAGEAL REFLUX DISEASE WITHOUT ESOPHAGITIS Status: Chronic (3) Hypokalemia Code(s): E87.6 - HYPOKALEMIA Status: Acute (4) Subarachnoid hemorrhage Code(s): I60.9 - NONTRAUMATIC SUBARACHNOID HEMORRHAGE, UNSPECIFIED Status: Acute (5) Subdural hematoma Code(s): S06.5X9A - TRAUM SUBDR HEM W LOC OF UNSP DURATION, INIT Status: Acute (6) Gout Code(s): M10.9 - GOUT, UNSPECIFIED Status: Chronic (7) HLD (hyperlipidemia) Code(s): E78.5 - HYPERLIPIDEMIA, UNSPECIFIED Status: Chronic (8) Hypertension Code(s): I10 - ESSENTIAL (PRIMARY) HYPERTENSION Status: Chronic (9) Tremor Code(s): R25.1 - TREMOR, UNSPECIFIED Status: Acute Comment: ? parkinson (10) Hyponatremia Code(s): E87.1 - HYPO-OSMOLALITY AND HYPONATREMIA Status: Acute - Plan cont current plan of care, PT/OT, social science manager * nephrology managing sodium * neurology consulted for change in neuro status, pt is not a candidate for any other intervention other than supportive therapy * transfer to stroke and close monitoring * stroke team evaluation * aspiration precaution * medication reviewed as below * symptomatic treatment * will need eventual placement. Review of Systems - Review of Systems Other: not reliable today due to his level of alertness and cognitive status - Medications/Allergies Allergies/Adverse Reactions: Allergies Allergy/AdvReac Type Severity Reaction Status Date / Time lisinopril Allergy Verified 01/21/15 12:30 Medications: Current Medications Acetaminophen (Tylenol) 650 mg PO Q4H PRN PRN Reason: Headache/Fever/Mild Pain (1-3) Last Admin: 08/21/18 03:28 Dose: 650 mg Allopurinol (Zyloprim) 100 mg PO DAILY [facility] Last Admin: 08/24/18 08:01 Dose: 100 mg Artificial Tears (Tears Naturale) 2 drop EA EYE PRN PRN PRN Reason: Dry Eyes Bisacodyl (Dulcolax) 10 mg NM DAILYPRN PRN PRN Reason: Constipation Carvedilol (Coreg) 25 mg PO BID-[facility] Last Admin: 08/24/18 07:34 Dose: 25 mg Folic Acid (Folvite) 1 mg PO DAILY [facility] Last Admin: 08/24/18 08:02 Dose: 1 mg Hydralazine HCl (Apresoline) 10 mg SLOW IVP Q15MIN PRN PRN Reason: SBP greater than 150 Last Admin: 08/23/18 04:57 Dose: 10 mg Hydralazine HCl (Apresoline) 100 mg PO TID [facility] Last Admin: 08/24/18 08:01 Dose: 100 mg Labetalol HCl (Normodyne) 20 mg SLOW IVP Q4H PRN PRN Reason: SBP > 150 Last Admin: 08/24/18 07:36 Dose: 20 mg Nifedipine (Procardia Xl) 30 mg PO Q12HR [facility] Last Admin: 08/24/18 08:02 Dose: 30 mg Ondansetron HCl (Zofran) 4 mg IVP Q6H PRN PRN Reason: Nausea/Vomiting Pantoprazole Sodium (Protonix) 40 mg IVP DAILY [facility] Last Admin: 08/24/18 08:02 Dose: 40 mg Prazosin HCl (Minipress) 1 mg PO BID [facility] Last Admin: 08/24/18 09:51 Dose: 1 mg Senna/Docusate Sodium (Senokot S) 2 tab PO BID PRN PRN Reason: Constipation Sodium Chloride (Flush - Normal Saline) 10 ml IVF PRN PRN PRN Reason: Saline Flush Sodium Chloride ([place] Nasal [place] 0.65%) 0 ml EA NARE QIDPRN PRN PRN Reason: Nasal Congestion Thiamine HCl (Thiamine) 100 mg PO DAILY [facility] Last Admin: 08/24/18 08:02 Dose: 100 mg Throat Lozenges (Cepastat Lozenges) 1 silverio PO Q2H PRN PRN Reason: Sore Throat
--- NOTE | 2018-08-24 12:27 | PRG ---
DATE OF SERVICE: 08/24/2018 SUBJECTIVE: A 57-year-old gentleman being seen for acute kidney injury with worsening creatinine. The patient has altered mentation. OBJECTIVE: CONSTITUTIONAL: The patient is confused. VITAL SIGNS: Afebrile. Pulse 87, breathing 16, blood pressure 130/99. GENERAL APPEARANCE AND MENTAL STATUS: Fair. HEAD/NECK: Normocephalic. Atraumatic. EYES: EOMI. No deformity. EARS: Clear. No ulcers. NOSE: Intact. No lesions. MOUTH: Clear. No discharge. THROAT: Clear. No exudate. LUNGS: Clear. No crackles. CARDIAC: S1, S2. No rub. ABDOMEN: Benign. Bowel sounds positive. GENITALIA/RECTUM: Tena absent. BACK/EXTREMITIES: Edema 0+. NEUROLOGICAL: The patient cannot answer simple questions. SKIN: LYMPHATICS: LABORATORY DATA: Labs were reviewed. ASSESSMENT AND PLAN: 1. Chronic kidney disease stage 3 with acute kidney injury and progressive rise in creatinine, most likely because of acute tubular necrosis. 2. Hyponatremia. Hyponatremia is because of volume overload and renal failure. We would recommend 1000 mL fluid restriction. 3. Anemia, stable. 4. Medications based on GFR, appropriate. 5. Metabolic acidosis, due to renal failure. Overall prognosis is poor. Job ID: [id number]
--- NOTE | 2018-08-24 13:55 | ULT ---
ULTRASOUND RETROPERITONEUM COMPLETE: (RENAL) DATE: 08/24/18 HISTORY: 57-year-old male with acute kidney injury. FINDINGS: Patient is unable to follow commands to turn body. Furthermore, body habitus, and shadowing from rani cent structures, including bowel gas and ribs, results in very poor visualization of the left kidney. Right kidney measures 9.5 x 5.5 x 5.5 cm. There is no hydronephrosis. There is a small, hypoechoic, 1 .2 x 0.8 x 0.9 cm cortical lesion at mid pole of right kidney, incompletely characterized. Perhaps it is a small cyst, but that is not certain. The right renal parenchymal echogenicity is diffusely inc reased, suggestive of medical renal disease. There is shadowing obscuring the lower pole of the right kidney, making the craniocaudal measurement somewhat inaccurate. The urinary bladder volume is 45 mL at the time of this scan. IMPRESSION: 1. Limited study. 2. Left kidney is very poorly visualized. 3. No hydronephrosis of right kidney. 4. Evidence for medical renal disease. 5. Small cortical lesion in the right kidney, poorly characterized. EVELYNE Clinton POS: SHANDRA
--- NOTE | 2018-08-24 17:25 | RAD ---
EXAM: Single view of the chest HISTORY: Aspiration pneumonia COMPARISON: 08/19/2018 FINDINGS: Single view of the chest shows an enlarged cardiomediastinal silhouette. There is no eviden ce of consolidation, mass, or pleural effusion. Degenerative changes are seen in the spine. IMPRESSION: Cardiomegaly
[2018-08-24] MEDS: Sodium Chloride 0.9% 1,000 ML IV SCH (18:07)
[2018-08-24] MEDS: Acetaminophen 325 MG TAB PO PRN (18:07)
[2018-08-24] MEDS ORDERED: levETIRAcetam In NaCl (Iso-Os) 1,500 MG in Premix Bag 1 BAG IVPB SCH (19:00)
[2018-08-25] MEDS: Labetalol HCl 100 MG/20 ML VIAL SLOW IVP PRN ×3 (03:58→14:05)
[2018-08-25 05:35] LABS: Anion Gap 17 mmol/L (10-20); BUN (Urea Nitrogen) 37 mg/dL (8.4-25.7); Calc. Creatinine Clearance 37 mL/min (70-130); Calcium 9.5 mg/dL (7.8-10.44); Carbon Dioxide 16 mmol/L (22-29); Chloride 101 mmol/L (98-107); Estimated GFR-MDRD 29; Glucose 94 mg/dL (70-105); Sodium 130 mmol/L (136-145)
[2018-08-25 05:48] LABS: Eosinophils 3 % (0-10); Hemoglobin 13.6 g/dL (14.0-18.0); Lymphocytes 9 % (21-51); MDiff Complete? YES; Mean Corpuscular HGB CONC 33.1 g/dL (32.0-36.0); Mean Corpuscular Hemoglobin 29.4 pg (27.0-31.0); Mean Corpuscular Volume 88.9 fL (78.0-98.0); Mean Platelet Volume 7.8 fL (7.4-10.4); Monocytes 12 % (0-10); Neutrophil 75 % (42-75); Platelet Count 363 thou/uL (130-400); Platelet Morphology Comment Appears Adequate; RBC Distribution Width 12.9 % (11.5-14.5); Red Blood Cell (RBC) Count 4.63 mill/uL (4.70-6.10); White Blood Cell (WBC) Count 10.8 thou/uL (4.8-10.8)
[2018-08-25] MEDS: Pantoprazole 40 MG VIAL IVP SCH (08:51)
[2018-08-25] MEDS: hydrALAZINE 20 MG/ML VIAL SLOW IVP PRN ×5 (09:02→18:32)
--- NOTE | 2018-08-25 10:07 | PRG ---
DATE OF SERVICE: 08/25/2018 SUBJECTIVE: This morning, he is responsive, though clearly lethargic. OBJECTIVE: VITAL SIGNS: Saturations are 92% on room air, blood pressure 194/ 140, pulse 97, respiratory rate 18. CHEST: No wheezing. CARDIAC: Normal S1 and S2. No gallops. LABORATORY DATA: His sodium is 130, creatinine 2.7. Actually, it was taken yesterday. He has a trumpet in r nostril in place. X-ray shows no acute infiltrates. IMPRESSION: Status post subarachnoid hemorrhage, hypertension, morbid obesity, hyponatremia, renal failure. PLAN: Pulmonary-george, I would consider palliative care consult. Continue supportive care seizure medication, PT. Job ID: [id number] MTDD
[2018-08-25] MEDS: Allopurinol 100 MG TAB PO SCH (10:22)
[2018-08-25] MEDS: Carvedilol 25 MG TAB PO SCH ×2 (10:22→14:41)
[2018-08-25] MEDS: Folic Acid 1 MG TAB PO SCH (10:22)
[2018-08-25] MEDS: NIFEdipine XL 30 MG TAB PO SCH ×2 (10:22→21:59)
[2018-08-25] MEDS: hydrALAZINE 25 MG TAB PO SCH ×3 (10:22→21:59)
[2018-08-25] MEDS: Prazosin HCl 1 MG CAP PO SCH ×2 (10:23→21:59)
[2018-08-25] MEDS: Thiamine 100 MG TAB PO SCH (10:23)
--- NOTE | 2018-08-25 10:42 | PRG ---
DATE OF SERVICE: 08/25/2018 This is Saturnino Romero PA-C dictating a report for Eluid Moore MD. This is a 50-minute subsequent patient evaluation, in which greater than 50% of the exam was spent counseling and coordinating the patient's care. Remainder of the exam was spent in review of the patient's medical record and formulation of treatment plan. Mr. Jaimes is now hospital day #6 having sustained an angio negative traumatic subarachnoid hemorrhage. The patient remains with a slow neurologic exam. He is sitting up in bed and alert. However, he is nonverbal at this time. He requires a lot of redirection in regard to neurologic exam, but he eventually follows commands in all 4 extremities. It appears that he is having significant difficulty in clearing his secretions and he has a nasal oral airway trumpet in place. He does appear to have increased respirations at this time. From neurosurgical standpoint, the patient does not require Neurosurgery as he had a repeat head CT yesterday that was stable. His main issues are medical and we will transfer primary service to the hospitalist service, which we greatly appreciate their help. He is ready for discharge to inpatient rehab likely in the next few days. His sodium is improving in the 130s, although he can remain with likely stage 3 chronic kidney disease. Neurology has also started him on Keppra. We will leave that to their discretion. Otherwise, we will arrange for a followup appointment in our office in 1 month with a repeat CTA. Please call with any changes in the patient's neurologic status, otherwise Neurosurgery will intermittently follow. Job ID: [id number]
--- NOTE | 2018-08-25 11:13 | PRG ---
DATE OF SERVICE: 08/25/2018 SUBJECTIVE: A 57-year-old gentleman being seen for acute kidney injury. The patient remains nonresponsive. OBJECTIVE: CONSTITUTIONAL: The patient is apneic at times. VITAL SIGNS: Afebrile, pulse 98, breathing 16, and blood pressure 172/131. GENERAL APPEARANCE AND MENTAL STATUS: Fair. HEAD/NECK: Normocephalic. Atraumatic. EYES: EOMI. No deformity. EARS: Clear. No ulcers. NOSE: Intact. No lesions. MOUTH: Clear. No discharge. THROAT: Clear. No exudate. LUNGS: Clear. No crackles. CARDIAC: S1, S2. No rub. ABDOMEN: Benign. Bowel sounds positive. GENITALIA/RECTUM: Tena absent. BACK/EXTREMITIES: Edema 0+. NEUROLOGICAL: Alert and motor intact. SKIN: LYMPHATICS: LABORATORY DATA: Labs reviewed. ASSESSMENT AND PLAN: Acute kidney injury with chronic kidney disease due to acute tubular necrosis. Hypertension, management per primary team. Overall prognosis is poor. Palliative Care has been consulted. I will sign off. Please reconsult as needed. Job ID: [id number]
[2018-08-25] MEDS: Sodium Chloride 0.9% 1,000 ML IV SCH (12:08)
--- NOTE | 2018-08-25 12:51 | PDOC.PN ---
- Subjective Encounter Start Date: 08/25/18 Encounter Start Time: 10:30 pt is worse today, he is not doing well, he has gurgling sound, he has central breathing, he is unresponsive - Objective Resuscitation Status - Order Detail: 08/19/18 13:04 Resuscitation Status Routine Co-Sign Provider: Resuscitation Status: FULL: Full Resuscitation MAR Reviewed: Yes Vital Signs & Weight: Vital Signs (12 hours) Temp Pulse Resp BP BP Pulse Ox 08/25/18 12:05 98 160/121 H 08/25/18 10:47 98 178/131 H 08/25/18 10:44 98 178/131 H 08/25/18 10:22 97 194/140 H 08/25/18 09:02 97 194/140 H 08/25/18 08:58 194/140 H 08/25/18 07:23 96 173/117 H 08/25/18 07:14 93 20 92 L 08/25/18 07:10 98.4 F 96 24 H 173/117 H 98 08/25/18 05:56 94 147/102 H 08/25/18 04:00 99.6 F 86 22 H 159/106 H 96 08/25/18 02:00 78 130/100 H Weight Admit Weight 194 lb Weight 192 lb 14.4 oz Most Recent Monitor Data Heart Rate from ECG 92 NIBP 130/99 NIBP BP-Mean 109 Respiration from ECG 27 SpO2 100 I&O: 08/24/18 08/25/18 08/26/18 06:59 06:59 06:59 Intake Total 820 100 Output Total 800 1 Balance 20 99 Result Diagrams: 08/25/18 04:58 08/25/18 04:58 EKG Reviewed by me: Yes Phys Exam - Physical Examination Constitutional: NAD HEENT: PERRLA, sclera anicteric Neck: no JVD, supple Respiratory: no wheezing, no rales, no rhonchi coarse sound Cardiovascular: RRR, no significant murmur, no rub Gastrointestinal: soft, non-tender, no distention, positive bowel sounds Musculoskeletal: no edema, pulses present Lymphatic: no nodes Skin: no rash, normal turgor Dx/Plan (1) Acute worsening of stage 3 chronic kidney disease Code(s): N18.3 - CHRONIC KIDNEY DISEASE, STAGE 3 (MODERATE) Status: Acute (2) GERD (gastroesophageal reflux disease) Code(s): K21.9 - GASTRO-ESOPHAGEAL REFLUX DISEASE WITHOUT ESOPHAGITIS Status: Chronic (3) Hypokalemia Code(s): E87.6 - HYPOKALEMIA Status: Acute (4) Subarachnoid hemorrhage Code(s): I60.9 - NONTRAUMATIC SUBARACHNOID HEMORRHAGE, UNSPECIFIED Status: Acute (5) Subdural hematoma Code(s): S06.5X9A - TRAUM SUBDR HEM W LOC OF UNSP DURATION, INIT Status: Acute (6) Gout Code(s): M10.9 - GOUT, UNSPECIFIED Status: Chronic (7) HLD (hyperlipidemia) Code(s): E78.5 - HYPERLIPIDEMIA, UNSPECIFIED Status: Chronic (8) Hypertension Code(s): I10 - ESSENTIAL (PRIMARY) HYPERTENSION Status: Chronic (9) Tremor Code(s): R25.1 - TREMOR, UNSPECIFIED Status: Acute Comment: ? parkinson (10) Hyponatremia Code(s): E87.1 - HYPO-OSMOLALITY AND HYPONATREMIA Status: Acute (11) Encephalopathy acute Code(s): G93.40 - ENCEPHALOPATHY, UNSPECIFIED Status: Acute - Plan cont current plan of care, director of social services * medication reviewed as below * symptomatic treatment * palliative care consult * will add catapress patch * he is not ready for discharge * will keep NPO * prognosis is very poor. Review of Systems - Review of Systems Other: unable to review due to encepaphalopathy - Medications/Allergies Allergies/Adverse Reactions: Allergies Allergy/AdvReac Type Severity Reaction Status Date / Time lisinopril Allergy Verified 01/21/15 12:30 Medications: Current Medications Acetaminophen (Tylenol) 650 mg PO Q4H PRN PRN Reason: Headache/Fever/Mild Pain (1-3) Last Admin: 08/24/18 18:07 Dose: 650 mg Albuterol/Ipratropium (Duoneb) 3 ml NEB P0GC-MS REPLACED BY [facility] Last Admin: 08/25/18 07:14 Dose: 3 ml Allopurinol (Zyloprim) 100 mg PO DAILY [facility]PL[facility] BY [facility] Last Admin: 08/25/18 10:22 Dose: Not Given Artificial Tears (Tears Naturale) 2 drop EA EYE PRN PRN PRN Reason: Dry Eyes Bisacodyl (Dulcolax) 10 mg UT DAILYPRN PRN PRN Reason: Constipation Carvedilol (Coreg) 25 mg PO BID-[facility] Last Admin: 08/25/18 10:22 Dose: Not Given Folic Acid (Folvite) 1 mg PO DAILY [facility]PL[facility] BY [facility] Last Admin: 08/25/18 10:22 Dose: Not Given Hydralazine HCl (Apresoline) 10 mg SLOW IVP Q15MIN PRN PRN Reason: SBP greater than 150 Last Admin: 08/25/18 12:05 Dose: 10 mg Hydralazine HCl (Apresoline) 100 mg PO TID REPLACED BY [facility] Last Admin: 08/25/18 10:22 Dose: Not Given Sodium Chloride (Normal Saline 0.9%) 1,000 mls @ 50 mls/hr IV .Q20H REPLACED BY [facility] Last Admin: 08/25/18 12:08 Dose: 1,000 mls Levetiracetam 500 mg/ Device 100 mls @ 200 mls/hr IVPB BID REPLACED BY [facility] Last Admin: 08/25/18 08:51 Dose: 100 mls Labetalol HCl (Normodyne) 20 mg SLOW IVP Q4H PRN PRN Reason: SBP > 150 Last Admin: 08/25/18 07:23 Dose: 20 mg Nifedipine (Procardia Xl) 30 mg PO Q12HR REPLACED BY [facility] Last Admin: 08/25/18 10:22 Dose: Not Given Ondansetron HCl (Zofran) 4 mg IVP Q6H PRN PRN Reason: Nausea/Vomiting Pantoprazole Sodium (Protonix) 40 mg IVP DAILY REPL[facility] BY [facility] Last Admin: 08/25/18 08:51 Dose: 40 mg Prazosin HCl (Minipress) 1 mg PO BID REPLACED BY [facility] Last Admin: 08/25/18 10:23 Dose: Not Given Senna/Docusate Sodium (Senokot S) 2 tab PO BID PRN PRN Reason: Constipation Sodium Chloride (Flush - Normal Saline) 10 ml IVF PRN PRN PRN Reason: Saline Flush Sodium Chloride ([place] Nasal [place] 0.65%) 0 ml EA NARE QIDPRN PRN PRN Reason: Nasal Congestion Thiamine HCl (Thiamine) 100 mg PO DAILY REPLACED BY [facility] Last Admin: 08/25/18 10:23 Dose: Not Given Throat Lozenges (Cepastat Lozenges) 1 silverio PO Q2H PRN PRN Reason: Sore Throat
[2018-08-25] MEDS: cloNIDine 0.2mg/24 Hour PATCH TD SCH (14:41)
--- NOTE | 2018-08-25 15:33 | EEG ---
Referring Physician: Derek VOGEL EEG # [id number] TEST TYPE: ROUTINE PORTABLE INPATIENT REPORT: AN EEG USING THE [employer]NATIONAL TEN-TWENTY SYSTEM OF ELECTRODE PLACEMENT WAS PERFORMED. The waking background, at best, is a 5-6 hertz Theta frequency. Some Delta activity is seen over both hemispheres. No epileptiform features were present. Photic stimulation was unremarkable. IMPRESSION: THIS IS AN ABNORMAL STUDY FOR THE FINDINGS OF DIFFUSE SLOWING CONSISTENT WITH A DIFFUSE ENCEPHALOPATHIC PROCESS. Rosin Barrel Filler: RUBI Mandolin Repair Person: EEG.ROWENA KHAN
--- NOTE | 2018-08-25 21:49 | PDOC.EVN ---
Event Note - Event Note Event Note: Asked to see the patient as his breathing has substantially changed. On arrival , reviewed record. Significant ICH with very poor prognosis per the assessment of the team of physicians following him. Palliative care has seen the patient and met with family. Still full code at this time. BP has extremely elevated and recalcitrant to treatment. He is not responsive to external stimuli. Very tachypneic with slight grunting. Tachycardic. Ordering stat CXR, EKG, ABG. Discussed with Dr. Love. Will transfer back to CCU. May need to initiate Cardene gtt and will likely require intubation.
--- NOTE | 2018-08-25 21:53 | RAD ---
EXAM: Single view of the chest HISTORY: Tachypnea COMPARISON: 08/24/2018 FINDINGS: Single view of the chest shows an enlarged but stable cardiomediastinal silhouette. There i s no evidence of consolidation, mass, or pleural effusion. The bones are unremarkable. IMPRESSION: No evidence of acute cardiopulmonary disease
[2018-08-25 22:18] LABS: Actual Bicarbonate (HCO3a) 16.5 mEq/L (22-28); Base Excess (BEa) -3.9 mEq/L (-2.0 to +3.0); Calcium, Ionized 1.22 mmol/L (1.12-1.30); Carboxyhemoglobin (COHb) 1.3 gm% (0.0-3.0); Hemoglobin (Hb) 15.3 g/dL (14.0-18.0); Potassium - ABG Lab 4.05 mmol/L (3.70-5.30); pH, Arterial 7.51 (7.35-7.45)
[2018-08-25 22:19] LABS: O2 Tension (PaO2) 58.7 mmHg (80.0-100.0)
[2018-08-25 22:20] LABS: Puncture Site LRA
[2018-08-25] MEDS ORDERED: niCARdipine 25 MG in Sodium Chloride 0.9% 250 ML 240 ML IVPB SCH (22:45)
--- NOTE | 2018-08-25 23:45 | CON ---
DATE OF CONSULTATION: 08/25/2018 CONSULTING PHYSICIAN: Hospitalist Service. IMPRESSION: Multifactorial encephalopathy secondary to subarachnoid hemorrhage, renal failure, and febrile illness. PLAN: 1. Continue supportive measures. 2. Continue Keppra 500 mg twice daily. HISTORY OF PRESENT ILLNESS: Mr. Jaimes is a 57-year-old man, who presented several days ago with acute subarachnoid hemorrhage. He seemed to be improving clinically and was reasonably responsive. His level of consciousness deteriorated over the last couple of days. He spiked a temperature of 101.[address] scans of the brain show a fairly stable appearance of the subarachnoid blood with intraventricular extension. His respirations have gotten quite wet sounding. His chest x-ray showed cardiomegaly, but no obvious infiltrates. He had an EEG done today, which showed some generalized slowing without any evidence of subclinical seizures, called to give a neurologic opinion. PAST MEDICAL HISTORY: Hypertension. FAMILY HISTORY: Noncontributory. ALLERGIES: LISINOPRIL. MEDICATIONS: Medication list was reviewed. REVIEW OF SYSTEMS: Not obtainable due to his lethargic state. PHYSICAL EXAMINATION: VITAL SIGNS: Blood pressure 173/123, pulse 103, last temperature was 98.2. HEENT: Pupils equal and reactive. Conjunctivae clear. Oropharynx is clear. NECK: Appeared to be relatively supple. EXTREMITIES: No cyanosis or edema. NEUROLOGIC: I could get him to open his eyes briefly, but he tended to drift off to sleep. I could not get him to respond verbally or follow any commands. I did not notice any asymmetry of his face, his tone or his responses to stimulation. No abnormal movements were seen. SUMMARY: Middle-aged man with a subarachnoid hemorrhage, increased lethargy. I think that it is probably toxic and metabolic factors. There is no evidence of subclinical seizures. We would continue the Keppra. Job ID: [id number]
[2018-08-25 23:50] LABS: Actual Bicarbonate (HCO3a) 17.3 mEq/L (22-28); Calcium, Ionized 1.21 mmol/L (1.12-1.30); Hemoglobin (Hb) 15.2 g/dL (14.0-18.0); O2 Tension (PaO2) 108.6 mmHg (80.0-100.0); Potassium - ABG Lab 4.11 mmol/L (3.70-5.30); pH, Arterial 7.48 (7.35-7.45)
[2018-08-25 23:52] LABS: CO2 Tension 23.5 mmHg (35.0-45.0)
[2018-08-25 23:53] LABS: ALV-art Gradient 575.025 (0-20); Puncture Site LRADIAL
[2018-08-26] MEDS ORDERED: SYSTANE 3.5 GM TUBE EA EYE PRN (01:26)
[2018-08-26] MEDS ORDERED: Ventilator Sedation Protocol 1 EACH FS SCH (01:30)
[2018-08-26] MEDS ORDERED: Propofol BOLUS 1,000 MG/100 ML VIAL IV PRN (01:35)
[2018-08-26] MEDS ORDERED: Fentanyl BOLUS 250 ML IVPB PRN (01:35)
[2018-08-26] MEDS ORDERED: Morphine 2 MG/ML SYRINGE SLOW IVP PRN (01:35)
[2018-08-26] MEDS ORDERED: Lorazepam 2 MG/ML VIAL SLOW IVP PRN (01:35)
[2018-08-26] MEDS ORDERED: DISCONTINUE PREVIOUS NARCOTIC PAIN MEDICATIONS AND BENZODIAZEPINES FS SCH (01:35)
[2018-08-26] MEDS ORDERED: fentaNYL Citrate/PF 2,000 MCG in Sodium Chloride 0.9% 60 ML IV SCH (01:35)
--- NOTE | 2018-08-26 02:11 | PRG ---
DATE OF SERVICE: 08/26/2018 SERVICE: Pulmonary Medicine. INTERVAL HISTORY: The patient had increasing tachypnea associated with hypoxemia. He was not protecting his airway. As such, he was subsequently brought to the ICU. He was put on a non-rebreather. He had increasing encephalopathy. A nasal trumpet was in place to prevent significant rhonchus snoring. He cannot provide any additional elements of the history. I confirmed the code status with the patient's at bedside. She understands that intubation will not likely provide the patient with any significant recovery from a neurologic standpoint. That being said, given the option of comfort measures only, or being aggressive, putting a tube down, she is electing for the tube at this point. PHYSICAL EXAMINATION: VITAL SIGNS: T-max 101.1. Pulse 106, blood pressure 103/85, respirations 50, saturation is currently 100% on a non-rebreather. HEENT: Normocephalic and atraumatic. Sclerae white. Conjunctivae pink. Oral mucosa is moist without lesions. LUNGS: Decent air entry. Rhonchi are present throughout bilateral lung lucero. There is no prolonged expiratory phase or wheezing present. HEART: Tachycardic. Regular. ABDOMEN: Soft, nontender, and nondistended. Bowel sounds are positive. MUSCULOSKELETAL: No cyanosis or clubbing. There is no pitting in the bilateral lower extremities. He has very dry mucous membranes throughout. NEUROLOGIC: He spontaneously moves his left upper and lower extremity. I have not seen him move his right extremities. He does not withdraw from noxious stimuli in the right upper and lower extremity. Pupils are sluggish but equally responsive. He clearly has excellent respiratory drive. LABORATORY DATA: WBC 10.8, hemoglobin 13.6, platelets are 363 and up trending. PH 7.48, pCO2 23, and PO2 108. Creatinine 2.73, BUN 37. Sodium 130. Bicarb 16, anion gap is stable at 17. Urinalysis was unremarkable on . Blood cultures on the are unremarkable to date. ASSESSMENT: 1. Acute hypoxic respiratory failure. 2. Acute kidney injury on chronic kidney disease, stage 3. 3. Subarachnoid hemorrhage. 4. Tracheobronchitis with purulent secretions coming from the trachea on intubation with negative chest x-ray for infiltrate. DISCUSSION AND PLAN: We will get a urinalysis and urine culture and place a Tena. We will watch his ins and outs pretty closely. We will make ready for an intubation. Nasal trumpet will be removed. Pulmonary/Critical Care will continue to follow very closely while the patient remains in the ICU. He is unlikely to make a meaningful recovery from this neurologic event, though he will improve his respiratory failure once we identify and fix the underlying issue here. Critical care time: 30 minutes. Job ID: [id number] MTDD
[2018-08-26 02:18] LABS: Actual Bicarbonate (HCO3a) 14.3 mEq/L (22-28); Base Excess (BEa) -6.9 mEq/L (-2.0 to +3.0); Hemoglobin (Hb) 14.3 g/dL (14.0-18.0); O2 Tension (PaO2) 124.7 mmHg (80.0-100.0); Potassium - ABG Lab 3.81 mmol/L (3.70-5.30); pH, Arterial 7.46 (7.35-7.45)
[2018-08-26 02:19] LABS: CO2 Tension 20.4 mmHg (35.0-45.0); Puncture Site LFEMORAL
[2018-08-26] MEDS: Sodium Bicarbonate 75 MEQ in Sodium Chloride 0.45% 1,000 ML IV SCH ×2 (02:21→14:31)
[2018-08-26] MEDS: Propofol 1,000 MG/100 ML VIAL IV PRN ×2 (02:22→17:48)
[2018-08-26] MEDS: Piperacillin/Tazobactam 3.375 GM in Sodium Chloride 0.9% 100 ML IVPB SCH ×4 (02:22→20:59)
[2018-08-26] MEDS: Acetaminophen 325 MG TAB PO PRN ×2 (03:13→08:29)
[2018-08-26 06:55] LABS: Actual Bicarbonate (HCO3a) 17.1 mEq/L (22-28); Base Excess (BEa) -3.6 mEq/L (-2.0 to +3.0); Calcium, Ionized 1.22 mmol/L (1.12-1.30); Carboxyhemoglobin (COHb) 0.8 gm% (0.0-3.0); Hemoglobin (Hb) 15.4 g/dL (14.0-18.0); O2 Tension (PaO2) 75.2 mmHg (80.0-100.0); Potassium - ABG Lab 3.78 mmol/L (3.70-5.30); pH, Arterial 7.51 (7.35-7.45)
[2018-08-26 07:32] LABS: CO2 Tension 22.1 mmHg (35.0-45.0); Puncture Site RRA
[2018-08-26 07:33] LABS: ALV-art Gradient 232.285 (0-20)
--- NOTE | 2018-08-26 07:52 | RAD ---
XR Chest 1 View Portable History: Endotracheal tube placement Comparison: Radiograph prior day Findings: Patient is intubated endotracheal tube tip above the betito 2.5 cm. Enteric tube tip projec ts over the gastric body. Lungs are mildly hypoinflated. Heart size mildly enlarged. No pneumothorax. No large effusion. No foc al airspace consolidation. Impression: Satisfactory position of the endotracheal and enteric tubes.
[2018-08-26 08:16] LABS: #Basophils 0.1 thou/uL (0.0-0.2); #Lymphocytes 1.4 thou/uL (1.20-3.40); #Monocytes 2.5 thou/uL (0.11-0.59); #Neutrophils 12.8 thou/uL (1.40-6.50); %Basophils 0.4 % (0.0-1.0); %Eosinophils 0.2 % (0.0-10.0); %Lymphocytes 8.5 % (21.0-51.0); %Monocytes 14.8 % (0.0-10.0); %Neutrophils 76.1 % (42.0-75.0); Mean Corpuscular HGB CONC 32.2 g/dL (32.0-36.0); Mean Corpuscular Hemoglobin 29.1 pg (27.0-31.0); Mean Corpuscular Volume 90.2 fL (78.0-98.0); Mean Platelet Volume 7.8 fL (7.4-10.4); Platelet Count 391 thou/uL (130-400); Red Blood Cell (RBC) Count 4.83 mill/uL (4.70-6.10); White Blood Cell (WBC) Count 16.8 thou/uL (4.8-10.8)
[2018-08-26] MEDS: Pantoprazole 40 MG VIAL IVP SCH (08:29)
[2018-08-26] MEDS: Thiamine 100 MG TAB PO SCH (08:34)
[2018-08-26] MEDS: NIFEdipine XL 30 MG TAB PO SCH ×2 (08:34→21:00)
[2018-08-26] MEDS: Folic Acid 1 MG TAB PO SCH (08:34)
[2018-08-26] MEDS: Allopurinol 100 MG TAB PO SCH (08:34)
[2018-08-26] MEDS: Carvedilol 25 MG TAB PO SCH ×2 (08:34→15:47)
[2018-08-26] MEDS: hydrALAZINE 25 MG TAB PO SCH ×3 (08:34→21:05)
[2018-08-26 08:44] LABS: ALT (SGPT) Less than 7 U/L (8-55); AST (SGOT) 20 U/L (5-34); Albumin 3.2 g/dL (3.5-5.0); Alkaline Phosphatase 55 U/L (40-150); Anion Gap 17 mmol/L (10-20); BUN (Urea Nitrogen) 41 mg/dL (8.4-25.7); Bilirubin, Total 0.7 mg/dL (0.2-1.2); Calc. Creatinine Clearance 37 mL/min (70-130); Calcium 9.8 mg/dL (7.8-10.44); Carbon Dioxide 15 mmol/L (22-29); Chloride 106 mmol/L (98-107); Estimated GFR-MDRD 30; Globulin 3.8 g/dL (2.4-3.5); Glucose 100 mg/dL (70-105); Potassium 4.4 mmol/L (3.5-5.1); Sodium 134 mmol/L (136-145)
--- NOTE | 2018-08-26 09:36 | PRG ---
DATE OF SERVICE: SUBJECTIVE: Kyle Jaimes was intubated last night with progressive obtundation. His temperature is 103.1 this morning, , respiratory rate 18. His chest x-ray is clear. He is sedated on propofol. OBJECTIVE: VITAL SIGNS: resp 35 ,pulse 100, blood pressure 156/120. o2 sat 95% CHEST: Decreased breath sounds. No wheezing. CARDIAC: Sinus tach. ABDOMEN: Soft. LABORATORY DATA: White count 16,000. Lytes are normal. PO2 is 75, pCO2 20, pH 7.51, on a rate of 13, 47%, 500 tidal volume. IMPRESSION: 1. Subarachnoid hemorrhage. 2. Encephalopathy. 3. Morbid obesity. 4. Hypertension. 5. Azotemia. PLAN: We will start blood pressure medication down his NG tube. CT of the head is being ordered by Neurosurgery. Long-term prognosis is poor. It is unclear when he is going to be weanable. Discussed with family as they arrive. Await input from Neurosurgery. This is one-half hour of critical time. Job ID: [id number] [facility]ITAL[facility]ul[facility]
--- NOTE | 2018-08-26 10:23 | CT ---
CT HEAD WITHOUT CONTRAST: Multiple axial tomograms were obtained through the head without IV enhancement. INDICATION: Followup subarachnoid hemorrhage. COMPARISON: Comparison is made to CT head 08/24/2018 and 08/19/2018. FINDINGS: The previously described subarachnoid hemorrhage seen in the prepontine cistern and extending in the paramedian cephalic cistern on the left and into the region of the left cerebellar pontine angle show s significant resolution today. There continues to be increased density along the tentorium indicati ng some mild residual blood. Blood in the posterior horns of both lateral ventricles again noted, al though less pronounced. The cortical atrophy and chronic ischemic white matter changes are again noted and are stable. IMPRESSION: Continued resolution of the subarachnoid blood when compared to prior studies. POS: OFF
--- NOTE | 2018-08-26 11:43 | PRG ---
DATE OF SERVICE: 08/26/2018 SUBJECTIVE: This is a 57-year-old gentleman, being seen for acute kidney injury. The patient is intubated. OBJECTIVE: CONSTITUTIONAL: The patient is resting. VITAL SIGNS: Afebrile, pulse 90, breathing 16, and blood pressure 106/80. GENERAL APPEARANCE AND MENTAL STATUS: Fair. HEAD/NECK: Normocephalic. Atraumatic. EYES: EOMI. No deformity. EARS: Clear. No ulcers. NOSE: Intact. No lesions. MOUTH: Clear. No discharge. THROAT: Clear. No exudate. LUNGS: Clear. No crackles. CARDIAC: S1, S2. No rub. ABDOMEN: Benign. Bowel sounds positive. GENITALIA/RECTUM: Tena absent. BACK/EXTREMITIES: Edema 0+. NEUROLOGICAL: The patient is resting. SKIN: LYMPHATICS: LABORATORY DATA: Labs reviewed. ASSESSMENT AND PLAN: 1. Acute kidney injury with chronic kidney disease stage 3, stable. No indication for dialysis. 2. Metabolic acidosis. Continue sodium bicarbonate. 3. Anemia, stable. No indication for dialysis. 4. Hyponatremia, improved. Overall prognosis is poor. I would not recommend dialysis at this time if the patient's mental status does not change. Job ID: [id number]
--- NOTE | 2018-08-26 11:43 | PDOC.PN ---
- Subjective Encounter Start Date: 08/26/18 Encounter Start Time: 10:30 -: old records requested/rev last night pt was in respiratory distress, he was intubated, currently on vent, bedside - Objective Resuscitation Status - Order Detail: 08/19/18 13:04 Resuscitation Status Routine Co-Sign Provider: Resuscitation Status: FULL: Full Resuscitation MAR Reviewed: Yes Vital Signs & Weight: Vital Signs (12 hours) Temp Pulse Resp BP Pulse Ox 08/26/18 10:41 90 99/79 08/26/18 10:00 19 08/26/18 08:00 103.1 F H 08/26/18 06:39 104 H 164/123 H 08/26/18 06:33 105 H 33 H 99 08/26/18 04:00 100 08/26/18 01:26 106 H 103/85 08/26/18 01:00 101.4 F H 08/26/18 00:03 117 H 50 H 100 08/26/18 00:00 100 Weight Admit Weight 194 lb Weight 190 lb 7.67 oz Most Recent Monitor Data Heart Rate from ECG 85 NIBP 106/83 NIBP BP-Mean 90 Respiration from ECG 15 SpO2 94 I&O: 08/25/18 08/26/18 08/27/18 06:59 06:59 06:59 Intake Total 100 1239 Output Total 1 300 235 Balance 99 939 -235 Result Diagrams: 08/26/18 08:01 08/26/18 08:01 Radiology Reviewed by me: Yes (CT brain and chest xray reviewed) EKG Reviewed by me: Yes (nsr) Phys Exam - Physical Examination Constitutional: NAD on vent HEENT: PERRLA, sclera anicteric Neck: no JVD, supple Respiratory: no wheezing, no rales, no rhonchi Cardiovascular: RRR, no significant murmur, no rub Gastrointestinal: soft, no distention, positive bowel sounds Musculoskeletal: no edema, pulses present unable to assess as intubated Lymphatic: no nodes Deviation from normal: unable to assess as intubated Skin: no rash, normal turgor Dx/Plan (1) Acute respiratory failure with hypoxia Code(s): J96.01 - ACUTE RESPIRATORY FAILURE WITH HYPOXIA Status: Acute (2) Encephalopathy acute Code(s): G93.40 - ENCEPHALOPATHY, UNSPECIFIED Status: Acute (3) Acute worsening of stage 3 chronic kidney disease Code(s): N18.3 - CHRONIC KIDNEY DISEASE, STAGE 3 (MODERATE) Status: Acute (4) GERD (gastroesophageal reflux disease) Code(s): K21.9 - GASTRO-ESOPHAGEAL REFLUX DISEASE WITHOUT ESOPHAGITIS Status: Chronic (5) Hypokalemia Code(s): E87.6 - HYPOKALEMIA Status: Acute (6) Subarachnoid hemorrhage Code(s): I60.9 - NONTRAUMATIC SUBARACHNOID HEMORRHAGE, UNSPECIFIED Status: Acute (7) Subdural hematoma Code(s): S06.5X9A - TRAUM SUBDR HEM W LOC OF UNSP DURATION, INIT Status: Acute (8) Gout Code(s): M10.9 - GOUT, UNSPECIFIED Status: Chronic (9) HLD (hyperlipidemia) Code(s): E78.5 - HYPERLIPIDEMIA, UNSPECIFIED Status: Chronic (10) Hypertension Code(s): I10 - ESSENTIAL (PRIMARY) HYPERTENSION Status: Chronic (11) Tremor Code(s): R25.1 - TREMOR, UNSPECIFIED Status: Acute Comment: ? parkinson (12) Hyponatremia Code(s): E87.1 - HYPO-OSMOLALITY AND HYPONATREMIA Status: Acute - Plan cont current plan of care, plan discussed w/ family, respiratory therapy * medication reviewed as below * symptomatic treatment * vent as per pulmonary * discussed with * prognosis is poor. Review of Systems - Review of Systems Other: unable to review due to intubated status - Medications/Allergies Allergies/Adverse Reactions: Allergies Allergy/AdvReac Type Severity Reaction Status Date / Time lisinopril Allergy Verified 01/21/15 12:30 Medications: Current Medications Acetaminophen (Tylenol) 650 mg PO Q4H PRN PRN Reason: Headache/Fever/Mild Pain (1-3) Last Admin: 08/26/18 08:29 Dose: 650 mg Albuterol/Ipratropium (Duoneb) 3 ml NEB [id number] [facility] Last Admin: 08/26/18 06:33 Dose: 3 ml Allopurinol (Zyloprim) 100 mg PO DAILY [facility] Last Admin: 08/26/18 08:34 Dose: 100 mg Artificial Tears (Tears Naturale) 2 drop EA EYE PRN PRN PRN Reason: Dry Eyes Bisacodyl (Dulcolax) 10 mg [place] DAILYPRN PRN PRN Reason: Constipation Carvedilol (Coreg) 25 mg PO BID-WM [facility] Last Admin: 08/26/18 08:34 Dose: 25 mg Clonidine ([id number]-[id number]-5) 0.2 mg TD Q7DAYS [facility] Last Admin: 08/25/18 14:41 Dose: 0.2 mg Famotidine (Pepcid) 20 mg PER TUBE DAILY [facility] Folic Acid (Folvite) 1 mg PO DAILY [facility] Last Admin: 08/26/18 08:34 Dose: 1 mg Hydralazine HCl (Apresoline) 10 mg SLOW IVP Q15MIN PRN PRN Reason: SBP greater than 150 Last Admin: 08/25/18 18:32 Dose: 10 mg Hydralazine HCl (Apresoline) 100 mg PO TID [facility] Last Admin: 08/26/18 08:34 Dose: 100 mg Levetiracetam 500 mg/ Device 100 mls @ 200 mls/hr IVPB BID [facility] Last Admin: 08/26/18 08:35 Dose: 100 mls Nicardipine HCl 25 mg/ Sodium (Chloride) 250 mls @ 0 mls/hr IVPB INF [facility]; Protocol Piperacillin Sod/Tazobactam (Sod 3.375 gm/ Sodium Chloride) 100 mls @ 200 mls/ hr IVPB 0200,0800,1400,2000 [facility] Last Admin: 08/26/18 08:46 Dose: 100 mls Fentanyl Citrate 2,000 mcg/ (Sodium Chloride) 100 mls @ 0 mls/hr IV INF [facility]; Protocol Stop: 09/25/18 01:35 Fentanyl Citrate (Fentanyl Bolus) 250 mls @ 0 mls/hr IVPB PRN PRN PRN Reason: Breakthrough pain/agitation Stop: 09/25/18 01:35 Sodium Bicarbonate 75 meq/ (Sodium Chloride) 1,075 mls @ 100 mls/hr IV .[id number] [facility] Last Admin: 08/26/18 02:21 Dose: 1,075 mls Labetalol HCl (Normodyne) 20 mg SLOW IVP Q4H PRN PRN Reason: SBP > 150 Last Admin: 08/25/18 14:05 Dose: 20 mg Lorazepam (Ativan) 2 mg SLOW IVP Q1H PRN PRN Reason: Breakthrough agitation Stop: 09/25/18 01:35 Mineral Oil/White Petrolatum (Systane Nighttime Eye Ointment) 0 gm EA EYE PRN PRN PRN Reason: Dry Eyes Morphine Sulfate (Morphine) 2 mg SLOW IVP Q1H PRN PRN Reason: BREAKTHROUGH PAIN/Agitation Stop: 09/25/18 01:35 Nifedipine (Procardia Xl) 30 mg PO Q12HR [facility] Last Admin: 08/26/18 08:34 Dose: Not Given Ondansetron HCl (Zofran) 4 mg IVP Q6H PRN PRN Reason: Nausea/Vomiting Pantoprazole Sodium (Protonix) 40 mg IVP DAILY [facility] Last Admin: 08/26/18 08:29 Dose: 40 mg Prazosin HCl (Minipress) 1 mg PO BID [facility] Last Admin: 08/25/18 21:59 Dose: Not Given Propofol (Diprivan) 1,000 mg IV INF PRN; Protocol PRN Reason: TO ACHIEVE GOAL RASS Stop: 09/25/18 01:35 Last Admin: 08/26/18 02:22 Dose: 1,000 mg Propofol (Diprivan Bolus) 20 mg IV Q5MIN PRN PRN Reason: BREAKTHROUGH AGITATION Stop: 09/25/18 01:35 Senna/Docusate Sodium (Senokot S) 2 tab PO BID PRN PRN Reason: Constipation Sodium Chloride (Flush - Normal Saline) 10 ml IVF PRN PRN PRN Reason: Saline Flush Sodium Chloride ([place] Nasal [place] 0.65%) 0 ml EA NARE QIDPRN PRN PRN Reason: Nasal Congestion Thiamine HCl (Thiamine) 100 mg PO DAILY [facility] Last Admin: 08/26/18 08:34 Dose: 100 mg Throat Lozenges (Cepastat Lozenges) 1 silverio PO Q2H PRN PRN Reason: Sore Throat
[2018-08-26] MEDS: Famotidine 40 MG/5 ML Oral Suspension PER TUBE SCH (12:24)
[2018-08-26] MEDS: Prazosin HCl 1 MG CAP PO SCH ×2 (12:24→22:10)
--- NOTE | 2018-08-26 14:13 | OP ---
DATE OF PROCEDURE: 08/26/2018 SERVICE: Pulmonary Medicine. PROCEDURE PERFORMED: Emergent endotracheal intubation. CONSENT: Procedure was performed emergently secondary to clinical deterioration and respiratory failure. STAFF PHYSICIAN: Tra Love MD. MEDICATIONS USED: Propofol 150 mg IV push. PREPROCEDURE DIAGNOSES: 1. Acute hypoxic respiratory failure. 2. Encephalopathy secondary to neurologic injury. POSTPROCEDURE DIAGNOSES: 1. Acute hypoxic respiratory failure. 2. Encephalopathy secondary to neurologic injury. DESCRIPTION OF PROCEDURE: Vital sign monitoring was accomplished by noninvasive hemodynamic monitoring, pulse oximetry, and telemetry. In the supine position, the patient was preoxygenated with [id number] ventilation and maintained with saturations of 100%. Following induction of anesthesia, a GlideScope was inserted through the mouth, offering clear identification of the posterior oropharynx and laryngeal structures with a grade 1 view. An endotracheal tube was visualized passing through the vocal cords. Placement was confirmed by condensation in the endotracheal tube, colorimetric capnography, and bi-axillary chest auscultation. Significant purulent secretions were liberated from the endotracheal tube. It was secured at 24 cm, measured at the teeth. The patient was placed on mechanical ventilation with good return of volumes. Postprocedure x-ray demonstrated good location for the endotracheal tube within the trachea. ESTIMATED BLOOD LOSS: None. COMPLICATIONS: Transient hypotension that resolved after 5 minutes. Job ID: [id number]
--- NOTE | 2018-08-26 15:00 | PRG ---
DATE OF SERVICE: 08/26/2018 Mr. Jaimes is now approximately 1 week into his hospital stay for perimesencephalic subarachnoid hemorrhage as angiogram both invasively and noninvasively have been negative. His head CT this morning demonstrates redistribution of blood products with near-complete resolution or with significant improvement in his intracranial blood products. There is no worsening hydrocephalus. He has had essentially a failure to thrive, which frankly does not appear to be neurosurgical requiring some sort of intervention in etiology. He is intubated at this time and sedated and as such I do not have an exam. His pupils are equal, round, and reactive, 4 to 3 mm bilaterally. Certainly, there can be some irritation of the lower cranial nerves affecting at times lower cranial nerve function, however, this is atypical, in particular these patients do exceptionally well. I think we are dealing with other issues here. Job ID: [id number]
[2018-08-27] MEDS: Sodium Bicarbonate 75 MEQ in Sodium Chloride 0.45% 1,000 ML IV SCH (01:11)
[2018-08-27] MEDS: Piperacillin/Tazobactam 3.375 GM in Sodium Chloride 0.9% 100 ML IVPB SCH ×4 (01:13→19:54)
[2018-08-27 07:01] LABS: Actual Bicarbonate (HCO3a) 21.3 mEq/L (22-28); Base Excess (BEa) -1.7 mEq/L (-2.0 to +3.0); CO2 Tension 31.1 mmHg (35.0-45.0); Calcium, Ionized 1.21 mmol/L (1.12-1.30); Carboxyhemoglobin (COHb) 0.9 gm% (0.0-3.0); Hemoglobin (Hb) 13.3 g/dL (14.0-18.0); O2 Tension (PaO2) 97.7 mmHg (80.0-100.0); Potassium - ABG Lab 3.58 mmol/L (3.70-5.30); pH, Arterial 7.45 (7.35-7.45)
[2018-08-27 07:06] LABS: ALV-art Gradient 148.625 (0-20); Puncture Site RRA
[2018-08-27] MEDS: Carvedilol 25 MG TAB PO SCH ×2 (07:35→16:58)
[2018-08-27] MEDS: hydrALAZINE 25 MG TAB PO SCH ×3 (07:35→19:53)
[2018-08-27] MEDS: Thiamine 100 MG TAB PO SCH (07:36)
[2018-08-27] MEDS: Allopurinol 100 MG TAB PO SCH (07:36)
[2018-08-27] MEDS: Folic Acid 1 MG TAB PO SCH (07:36)
[2018-08-27] MEDS: Famotidine 40 MG/5 ML Oral Suspension PER TUBE SCH (07:40)
[2018-08-27] MEDS: NIFEdipine XL 30 MG TAB PO SCH ×2 (07:49→19:54)
[2018-08-27] MEDS: Pantoprazole 40 MG VIAL IVP SCH (07:50)
[2018-08-27 07:54] LABS: #Basophils 0.1 thou/uL (0.0-0.2); #Eosinphils 0.1 thou/uL (0.0-0.7); #Lymphocytes 1.5 thou/uL (1.20-3.40); #Monocytes 1.4 thou/uL (0.11-0.59); %Basophils 0.5 % (0.0-1.0); %Eosinophils 1.1 % (0.0-10.0); %Lymphocytes 11.2 % (21.0-51.0); %Monocytes 10.4 % (0.0-10.0); %Neutrophils 76.9 % (42.0-75.0); Hemoglobin 13.4 g/dL (14.0-18.0); Mean Corpuscular Hemoglobin 28.9 pg (27.0-31.0); Mean Corpuscular Volume 90.4 fL (78.0-98.0); Platelet Count 335 thou/uL (130-400); Red Blood Cell (RBC) Count 4.63 mill/uL (4.70-6.10)
[2018-08-27 08:11] LABS: Anion Gap 18 mmol/L (10-20); BUN (Urea Nitrogen) 39 mg/dL (8.4-25.7); Calc. Creatinine Clearance 46 mL/min (70-130); Calcium 9.2 mg/dL (7.8-10.44); Carbon Dioxide 18 mmol/L (22-29); Chloride 105 mmol/L (98-107); Estimated GFR-MDRD 37; Glucose 96 mg/dL (70-105); Potassium 3.7 mmol/L (3.5-5.1); Sodium 137 mmol/L (136-145)
--- NOTE | 2018-08-27 08:15 | RAD ---
RADIOGRAPH CHEST 1 VIEW: DATE: 08/27/2018 TIME: 4:35 AM HISTORY: 57-year-old male in respiratory failure. COMPARISON: 08/26/2018 FINDINGS: Endotracheal tube remains. NG tube is visualized, with side-port slightly superior to the diaphragm. Ectasia and tortuosity of thoracic aorta. No pulmonary edema. No pneumothorax. Visualized right lung lucero appear to be clear. Interval development of mild small patchy streaky infiltrate-like den sity at left base, probably subsegmental atelectasis. No other interval change. IMPRESSION: 1. Interval development of subsegmental atelectasis at the left lower lung zone. 2. No other interval change. 3. Endotracheal tube. 4. Esophagogastric tube distal tip is probably in the proximal stomach, side port probably in distal esophagus.
[2018-08-27] MEDS ORDERED: DC Sedation Protocol FS ONE (09:01)
--- NOTE | 2018-08-27 10:01 | PRG ---
DATE OF SERVICE: 08/27/2018 Mr. Jaimes is hospital day 8 following perimesencephalic subarachnoid hemorrhage. He is extubated this morning. He is alert. He appears to be in good spirits and is on nasal cannula. Hemodynamically, he has remained hypertensive with systolic blood pressure in the 140 to 160 range and diastolic in the 100 to 120 range with pulse in the 70 to 80 range. However, neurologically, again he does appear to be much improved. I do wonder component of his alertness issues was perhaps related to uremia given his renal artery, although obviously I defer to our medical colleagues in this regard. From my standpoint, he can be transferred to the floor. I will turn over care to our medical colleagues and I will arrange a followup in my clinic in [address] repeat head CT. Job ID: [id number]
--- NOTE | 2018-08-27 11:29 | PDOC.PN ---
- Subjective Encounter Start Date: 08/27/18 Encounter Start Time: 10:00 this morning pt is extubated, overall doing well - Objective Resuscitation Status - Order Detail: 08/19/18 13:04 Resuscitation Status Routine Co-Sign Provider: Resuscitation Status: FULL: Full Resuscitation MAR Reviewed: Yes Vital Signs & Weight: Vital Signs (12 hours) Temp Pulse Resp BP Pulse Ox 08/27/18 11:00 97.9 F 08/27/18 08:00 25 H 08/27/18 07:54 98.4 F 08/27/18 07:49 77 08/27/18 07:35 77 08/27/18 06:51 77 162/116 H 08/27/18 06:50 81 22 H 98 08/27/18 06:00 20 08/27/18 04:00 99.9 F H 18 08/27/18 02:17 82 08/27/18 02:00 17 08/27/18 00:01 84 13 99 08/27/18 00:00 99.1 F 19 Weight Admit Weight 180 lb 8.937 oz Weight 194 lb 7.163 oz Most Recent Monitor Data Heart Rate from ECG 79 NIBP 159/121 NIBP BP-Mean 133 Respiration from ECG 24 SpO2 92 I&O: 08/26/18 08/27/18 08/28/18 06:59 06:59 06:59 Intake Total 1239 3242.1 397.6 Output Total 300 1985 450 Balance 939 1257.1 -52.4 Result Diagrams: 08/27/18 07:36 08/27/18 07:36 Radiology Reviewed by me: Yes EKG Reviewed by me: Yes Phys Exam - Physical Examination Constitutional: NAD HEENT: PERRLA, sclera anicteric Neck: no JVD, supple Respiratory: no wheezing, no rales, no rhonchi Cardiovascular: RRR, no significant murmur, no rub Gastrointestinal: soft, non-tender, no distention Musculoskeletal: no edema, pulses present Neurological: moves all 4 limbs Lymphatic: no nodes Psychiatric: normal affect Skin: no rash, normal turgor Dx/Plan (1) Encephalopathy acute Code(s): G93.40 - ENCEPHALOPATHY, UNSPECIFIED Status: Acute (2) Acute worsening of stage 3 chronic kidney disease Code(s): N18.3 - CHRONIC KIDNEY DISEASE, STAGE 3 (MODERATE) Status: Acute (3) GERD (gastroesophageal reflux disease) Code(s): K21.9 - GASTRO-ESOPHAGEAL REFLUX DISEASE WITHOUT ESOPHAGITIS Status: Chronic (4) Hypokalemia Code(s): E87.6 - HYPOKALEMIA Status: Acute (5) Subarachnoid hemorrhage Code(s): I60.9 - NONTRAUMATIC SUBARACHNOID HEMORRHAGE, UNSPECIFIED Status: Acute (6) Subdural hematoma Code(s): S06.5X9A - TRAUM SUBDR HEM W LOC OF UNSP DURATION, INIT Status: Acute (7) Gout Code(s): M10.9 - GOUT, UNSPECIFIED Status: Chronic (8) HLD (hyperlipidemia) Code(s): E78.5 - HYPERLIPIDEMIA, UNSPECIFIED Status: Chronic (9) Hypertension Code(s): I10 - ESSENTIAL (PRIMARY) HYPERTENSION Status: Chronic (10) Tremor Code(s): R25.1 - TREMOR, UNSPECIFIED Status: Acute Comment: ? parkinson (11) Hyponatremia Code(s): E87.1 - HYPO-OSMOLALITY AND HYPONATREMIA Status: Resolved - Plan cont current plan of care, plan discussed w/ family, continue antibiotics, PT/OT , social media marketing manager * sodium improved * creatinine is improving * CT brain yesterday showed improvement * after extubation pt is doing well * medication reviewed as below * symptomatic treatment * discussed with family. * monitor * on empiric zosyn Review of Systems - Review of Systems Other: not reliable due to his current level of cognitive status - Medications/Allergies Allergies/Adverse Reactions: Allergies Allergy/AdvReac Type Severity Reaction Status Date / Time lisinopril Allergy Verified 01/21/15 12:30 Medications: Current Medications Acetaminophen (Tylenol) 650 mg PO Q4H PRN PRN Reason: Headache/Fever/Mild Pain (1-3) Last Admin: 08/26/18 08:29 Dose: 650 mg Albuterol/Ipratropium (Duoneb) 3 ml NEB [id number] [facility] Last Admin: 08/27/18 06:50 Dose: 3 ml Allopurinol (Zyloprim) 100 mg PO DAILY [facility] Last Admin: 08/27/18 07:36 Dose: 100 mg Artificial Tears (Tears Naturale) 2 drop EA EYE PRN PRN PRN Reason: Dry Eyes Bisacodyl (Dulcolax) 10 mg [place] DAILYPRN PRN PRN Reason: Constipation Carvedilol (Coreg) 25 mg PO BID-WM [facility] Last Admin: 08/27/18 07:35 Dose: 25 mg Clonidine ([id number]) 0.2 mg TD Q7DAYS [facility] Last Admin: 08/25/18 14:41 Dose: 0.2 mg Famotidine (Pepcid) 20 mg PER TUBE DAILY [facility] Last Admin: 08/27/18 07:40 Dose: 20 mg Folic Acid (Folvite) 1 mg PO DAILY [facility] Last Admin: 08/27/18 07:36 Dose: 1 mg Hydralazine HCl (Apresoline) 10 mg SLOW IVP Q15MIN PRN PRN Reason: SBP greater than 150 Last Admin: 08/25/18 18:32 Dose: 10 mg Hydralazine HCl (Apresoline) 100 mg PO TID [facility] Last Admin: 08/27/18 07:35 Dose: 100 mg Levetiracetam 500 mg/ Device 100 mls @ 200 mls/hr IVPB BID [facility] Last Admin: 08/27/18 11:19 Dose: 100 mls Nicardipine HCl 25 mg/ Sodium (Chloride) 250 mls @ 0 mls/hr IVPB INF [facility]; Protocol Piperacillin Sod/Tazobactam (Sod 3.375 gm/ Sodium Chloride) 100 mls @ 200 mls/ hr IVPB 0200,0800,1400,2000 [facility] Last Admin: 08/27/18 07:49 Dose: 100 mls Sodium Chloride (1/2 Normal Saline) 1,000 mls @ 50 mls/hr IV .Q20H [facility] Labetalol HCl (Normodyne) 20 mg SLOW IVP Q4H PRN PRN Reason: SBP > 150 Last Admin: 08/25/18 14:05 Dose: 20 mg Mineral Oil/White Petrolatum (Systane Nighttime Eye Ointment) 0 gm EA EYE PRN PRN PRN Reason: Dry Eyes Nifedipine (Procardia Xl) 30 mg PO Q12HR [facility] Last Admin: 08/27/18 07:49 Dose: Not Given Ondansetron HCl (Zofran) 4 mg IVP Q6H PRN PRN Reason: Nausea/Vomiting Pantoprazole Sodium (Protonix) 40 mg IVP DAILY [facility] Last Admin: 08/27/18 07:50 Dose: 40 mg Prazosin HCl (Minipress) 1 mg PO BID [facility] Last Admin: 08/26/18 22:10 Dose: 1 mg Senna/Docusate Sodium (Senokot S) 2 tab PO BID PRN PRN Reason: Constipation Sodium Chloride (Flush - Normal Saline) 10 ml IVF PRN PRN PRN Reason: Saline Flush Sodium Chloride ([place] Nasal [place] 0.65%) 0 ml EA NARE QIDPRN PRN PRN Reason: Nasal Congestion Thiamine HCl (Thiamine) 100 mg PO DAILY [facility] Last Admin: 08/27/18 07:36 Dose: 100 mg Throat Lozenges (Cepastat Lozenges) 1 silverio PO Q2H PRN PRN Reason: Sore Throat
--- NOTE | 2018-08-27 11:59 | PRG ---
DATE OF SERVICE: 08/27/2018 SUBJECTIVE: A 57-year-old gentleman being The patient denies any complaints. The patient was extubated. OBJECTIVE: CONSTITUTIONAL: The patient is resting. VITAL SIGNS: Pulse 79, breathing 16, blood pressure 159/121. Awake, alert, in no acute distress. GENERAL APPEARANCE AND MENTAL STATUS: Fair. HEAD/NECK: Normocephalic. Atraumatic. EYES: EOMI. No deformity. EARS: Clear. No ulcers. NOSE: Intact. No lesions. MOUTH: Clear. No discharge. THROAT: Clear. No exudate. LUNGS: Clear. No crackles. CARDIAC: S1, S2. No rub. ABDOMEN: Benign. Bowel sounds positive. GENITALIA/RECTUM: Tena absent. BACK/EXTREMITIES: Edema 0+. NEUROLOGICAL: Alert and motor intact. SKIN: LYMPHATICS: LABORATORY DATA: Reviewed. ASSESSMENT AND PLAN: 1. Acute kidney injury with chronic kidney disease stage 3, stable. 2. Hypertension stable. Titrate the patient's home blood pressure medication. 3. Anemia stable. 4. Medication based on glomerular filtrate rate appropriate. 5. Please reconsult as needed. Job ID: [id number]
[2018-08-27] MEDS: Sodium Chloride 0.45% 1,000 ML IV SCH (13:10)
[2018-08-27] MEDS: Prazosin HCl 1 MG CAP PO SCH ×2 (13:14→19:54)
[2018-08-28] MEDS: Piperacillin/Tazobactam 3.375 GM in Sodium Chloride 0.9% 100 ML IVPB SCH ×4 (03:01→20:46)
[2018-08-28 04:30] LABS: #Eosinphils 0.2 thou/uL (0.0-0.7); #Lymphocytes 1.3 thou/uL (1.20-3.40); #Monocytes 1.1 thou/uL (0.11-0.59); #Neutrophils 9.6 thou/uL (1.40-6.50); %Basophils 0.3 % (0.0-1.0); %Eosinophils 1.5 % (0.0-10.0); %Lymphocytes 10.6 % (21.0-51.0); %Monocytes 9.1 % (0.0-10.0); %Neutrophils 78.5 % (42.0-75.0); Hemoglobin 13.4 g/dL (14.0-18.0); Mean Corpuscular HGB CONC 33.1 g/dL (32.0-36.0); Mean Corpuscular Hemoglobin 29.7 pg (27.0-31.0); Mean Corpuscular Volume 89.7 fL (78.0-98.0); Mean Platelet Volume 7.9 fL (7.4-10.4); Platelet Count 342 thou/uL (130-400); RBC Distribution Width 12.8 % (11.5-14.5); Red Blood Cell (RBC) Count 4.52 mill/uL (4.70-6.10); White Blood Cell (WBC) Count 12.3 thou/uL (4.8-10.8)
[2018-08-28 04:50] LABS: Anion Gap 17 mmol/L (10-20); BUN (Urea Nitrogen) 38 mg/dL (8.4-25.7); Calc. Creatinine Clearance 48 mL/min (70-130); Calcium 9.3 mg/dL (7.8-10.44); Carbon Dioxide 20 mmol/L (22-29); Chloride 106 mmol/L (98-107); Estimated GFR-MDRD 39; Glucose 101 mg/dL (70-105); Potassium 3.7 mmol/L (3.5-5.1); Sodium 139 mmol/L (136-145)
[2018-08-28] MEDS: hydrALAZINE 20 MG/ML VIAL SLOW IVP PRN ×2 (05:44→16:20)
--- NOTE | 2018-08-28 07:51 | PRG ---
DATE OF SERVICE: 08/27/2018 SUBJECTIVE: This morning, he is awake, alert, and responsive. He is off all sedation. Appropriate. Moves all 4 extremities. OBJECTIVE: VITAL SIGNS: Respiratory rate 25, blood pressure 144/107, pulse 70, , saturations are 96%. CHEST: Decreased breath sounds. No wheezing. CARDIAC: Normal S1, S2. No gallops. ABDOMEN: No masses. LABORATORY DATA: Lytes are normal. Creatinine 2.2. White count is normal at 13,000. PO2 is 97, pCO2 of 31, pH 7.45, rate of 10, on CPAP, is doing well. X-ray shows no acute infiltrates. IMPRESSION: Respiratory failure, metabolic encephalopathy, intracerebral hemorrhage, subarachnoid hemorrhage, hypertension, probably sleep apnea. PLAN: Extubated today, nocturnal BiPAP. Supportive care, PT, nutrition. One-half hour of critical care time. Job ID: [id number]
--- NOTE | 2018-08-28 08:22 | RAD ---
EXAM: CHEST ONE VIEW HISTORY: On ventilator. Follow-up evaluation. COMPARISON: 08/27/2018. FINDINGS: The nasogastric tube and endotracheal tube have been removed. Cardiac silhouette is magnified by proj ection but is at the upper limits normal in size. Pulmonary vasculature is within normal limits. There is suboptimal evaluation retrocardiac region left lung base. The lungs are otherwise clear. The osseous structures are intact. Vascular calcifications are seen in the thoracic aorta. IMPRESSION: Removal of the endotracheal tube and nasogastric tubes. There is improved aeration of the lungs when compared to the prior exam, and the visualized lungs are clear. However, there is suboptimal evaluation in the retrocardiac region left lung base, and atelectasis or infiltrate in this region ca nnot be excluded.
[2018-08-28] MEDS: Sodium Chloride 0.45% 1,000 ML IV SCH (09:00)
[2018-08-28] MEDS: Thiamine 100 MG TAB PO SCH (10:56)
[2018-08-28] MEDS: Folic Acid 1 MG TAB PO SCH (10:57)
[2018-08-28] MEDS: Carvedilol 25 MG TAB PO SCH ×2 (10:57→17:00)
[2018-08-28] MEDS: Allopurinol 100 MG TAB PO SCH (10:57)
[2018-08-28] MEDS: hydrALAZINE 25 MG TAB PO SCH ×3 (10:57→20:37)
[2018-08-28] MEDS: Famotidine 40 MG/5 ML Oral Suspension PER TUBE SCH (10:58)
[2018-08-28] MEDS: NIFEdipine XL 30 MG TAB PO SCH ×2 (10:58→20:37)
[2018-08-28] MEDS: Prazosin HCl 1 MG CAP PO SCH ×2 (10:59→20:37)
[2018-08-28] MEDS: Pantoprazole 40 MG VIAL IVP SCH (10:59)
[2018-08-28] MEDS: Sodium Chloride 0.9% 1,000 ML IV SCH (11:18)
--- NOTE | 2018-08-28 12:03 | PDOC.PN ---
- Subjective Encounter Start Date: 08/28/18 Encounter Start Time: 11:00 Patient seen and examined. Pt failed swallow evaluation, No overnight events - Objective Resuscitation Status - Order Detail: 08/19/18 13:04 Resuscitation Status Routine Co-Sign Provider: Resuscitation Status: FULL: Full Resuscitation MAR Reviewed: Yes Vital Signs & Weight: Vital Signs (12 hours) Temp Pulse Resp BP Pulse Ox 08/28/18 10:58 97 158/123 H 08/28/18 10:57 97 158/123 H 08/28/18 06:59 99 08/28/18 06:56 85 21 H 99 08/28/18 04:00 98.1 F 08/28/18 02:22 79 14 96 Weight Admit Weight 180 lb 8.937 oz Weight 198 lb 13.711 oz Most Recent Monitor Data Heart Rate from ECG 83 NIBP 144/115 NIBP BP-Mean 124 Respiration from ECG 22 SpO2 95 I&O: 08/27/18 08/28/18 08/29/18 06:59 06:59 06:59 Intake Total 3242.1 1990.6 Output Total 1985 1925 Balance 1257.1 65.6 Result Diagrams: 08/28/18 04:13 08/28/18 04:13 Radiology Reviewed by me: Yes (chest xray reviewed) EKG Reviewed by me: Yes (nsr) Phys Exam - Physical Examination Constitutional: NAD HEENT: PERRLA, moist MMs, sclera anicteric Neck: no JVD, supple Respiratory: no wheezing, no rales, no rhonchi Cardiovascular: RRR, no significant murmur, no rub Gastrointestinal: soft, non-tender, no distention, positive bowel sounds Musculoskeletal: no edema, pulses present Neurological: non-focal, normal sensation, moves all 4 limbs Lymphatic: no nodes Psychiatric: normal affect, A&O x 3 Skin: no rash, normal turgor Dx/Plan (1) Encephalopathy acute Code(s): G93.40 - ENCEPHALOPATHY, UNSPECIFIED Status: Acute (2) Acute worsening of stage 3 chronic kidney disease Code(s): N18.3 - CHRONIC KIDNEY DISEASE, STAGE 3 (MODERATE) Status: Acute (3) GERD (gastroesophageal reflux disease) Code(s): K21.9 - GASTRO-ESOPHAGEAL REFLUX DISEASE WITHOUT ESOPHAGITIS Status: Chronic (4) Hypokalemia Code(s): E87.6 - HYPOKALEMIA Status: Acute (5) Subarachnoid hemorrhage Code(s): I60.9 - NONTRAUMATIC SUBARACHNOID HEMORRHAGE, UNSPECIFIED Status: Acute (6) Subdural hematoma Code(s): S06.5X9A - TRAUM SUBDR HEM W LOC OF UNSP DURATION, INIT Status: Acute (7) Gout Code(s): M10.9 - GOUT, UNSPECIFIED Status: Chronic (8) HLD (hyperlipidemia) Code(s): E78.5 - HYPERLIPIDEMIA, UNSPECIFIED Status: Chronic (9) Hypertension Code(s): I10 - ESSENTIAL (PRIMARY) HYPERTENSION Status: Chronic (10) Tremor Code(s): R25.1 - TREMOR, UNSPECIFIED Status: Acute Comment: ? parkinson (11) Hyponatremia Code(s): E87.1 - HYPO-OSMOLALITY AND HYPONATREMIA Status: Resolved - Plan cont current plan of care, plan discussed w/ family * medication reviewed as below * symptomatic treatment * monitor in CCU * dubhuff tube placement and start tube feeding. Review of Systems - Review of Systems Other: not reliable due to cognitive status - Medications/Allergies Allergies/Adverse Reactions: Allergies Allergy/AdvReac Type Severity Reaction Status Date / Time lisinopril Allergy Verified 01/21/15 12:30 Medications: Current Medications Acetaminophen (Tylenol) 650 mg PO Q4H PRN PRN Reason: Headache/Fever/Mild Pain (1-3) Last Admin: 08/26/18 08:29 Dose: 650 mg Albuterol/Ipratropium (Duoneb) 3 ml NEB [id number] [facility] Last Admin: 08/28/18 06:56 Dose: 3 ml Allopurinol (Zyloprim) 100 mg PO DAILY [facility] Last Admin: 08/28/18 10:57 Dose: 100 mg Artificial Tears (Tears Naturale) 2 drop EA EYE PRN PRN PRN Reason: Dry Eyes Bisacodyl (Dulcolax) 10 mg [place] DAILYPRN PRN PRN Reason: Constipation Carvedilol (Coreg) 25 mg PO BID-WM [facility] Last Admin: 08/28/18 10:57 Dose: 25 mg Clonidine (Agpe[place]-Eav-3) 0.2 mg TD Q7DAYS [facility] Last Admin: 08/25/18 14:41 Dose: 0.2 mg Famotidine (Pepcid) 20 mg PER TUBE DAILY [facility] Last Admin: 08/28/18 10:58 Dose: 20 mg Folic Acid (Folvite) 1 mg PO DAILY [facility] Last Admin: 08/28/18 10:57 Dose: 1 mg Hydralazine HCl (Apresoline) 10 mg SLOW IVP Q15MIN PRN PRN Reason: SBP greater than 150 Last Admin: 08/28/18 05:44 Dose: 10 mg Hydralazine HCl (Apresoline) 100 mg PO TID [facility] Last Admin: 08/28/18 10:57 Dose: 100 mg Levetiracetam 500 mg/ Device 100 mls @ 200 mls/hr IVPB BID [facility] Last Admin: 08/28/18 10:59 Dose: 100 mls Piperacillin Sod/Tazobactam (Sod 3.375 gm/ Sodium Chloride) 100 mls @ 200 mls/ hr IVPB 0200,0800,1400,2000 [facility] Last Admin: 08/28/18 10:58 Dose: 100 mls Sodium Chloride (Normal Saline 0.9%) 1,000 mls @ 50 mls/hr IV .Q20H [facility] Last Admin: 08/28/18 11:18 Dose: 1,000 mls Labetalol HCl (Normodyne) 20 mg SLOW IVP Q4H PRN PRN Reason: SBP > 150 Last Admin: 08/25/18 14:05 Dose: 20 mg Mineral Oil/White Petrolatum (Systane Nighttime Eye Ointment) 0 gm EA EYE PRN PRN PRN Reason: Dry Eyes Nifedipine (Procardia Xl) 30 mg PO Q12HR [facility] Last Admin: 08/28/18 10:58 Dose: 30 mg Ondansetron HCl (Zofran) 4 mg IVP Q6H PRN PRN Reason: Nausea/Vomiting Pantoprazole Sodium (Protonix) 40 mg IVP DAILY [facility] Last Admin: 08/28/18 10:59 Dose: 40 mg Prazosin HCl (Minipress) 1 mg PO BID [facility] Last Admin: 08/28/18 10:59 Dose: 1 mg Senna/Docusate Sodium (Senokot S) 2 tab PO BID PRN PRN Reason: Constipation Sodium Chloride (Flush - Normal Saline) 10 ml IVF PRN PRN PRN Reason: Saline Flush Sodium Chloride ([place] Nasal [place] 0.65%) 0 ml EA NARE QIDPRN PRN PRN Reason: Nasal Congestion Thiamine HCl (Thiamine) 100 mg PO DAILY [facility] Last Admin: 08/28/18 10:56 Dose: 100 mg Throat Lozenges (Cepastat Lozenges) 1 silverio PO Q2H PRN PRN Reason: Sore Throat
--- NOTE | 2018-08-28 17:56 | RAD ---
Radiograph abdomen one view: DATE: 08/28/2018 Time: 5:34 PM HISTORY: Dobbhoff tube placement in 57-year-old male. FINDINGS: Distal portion of Dobbhoff of tube is vertically oriented stress in the medial left upper quadrant of abdomen. Stomach is decompressed. IMPRESSION: Dobbhoff feeding tube is probably in the proximal-mid body of the stomach.
[2018-08-28] MEDS ORDERED: Sodium Bicarbonate Tab 325 MG TAB PER TUBE PRN (19:56)
[2018-08-28] MEDS ORDERED: Pancrelipase DR 12000 1 CAP FS PRN (19:56)
[2018-08-29] MEDS: Piperacillin/Tazobactam 3.375 GM in Sodium Chloride 0.9% 100 ML IVPB SCH ×4 (03:27→20:35)
[2018-08-29 06:40] LABS: #Basophils 0.1 thou/uL (0.0-0.2); #Eosinphils 0.2 thou/uL (0.0-0.7); #Lymphocytes 1.2 thou/uL (1.20-3.40); #Neutrophils 8.1 thou/uL (1.40-6.50); %Basophils 0.6 % (0.0-1.0); %Eosinophils 1.8 % (0.0-10.0); %Lymphocytes 11.2 % (21.0-51.0); %Monocytes 9.2 % (0.0-10.0); %Neutrophils 77.2 % (42.0-75.0); Hemoglobin 13.4 g/dL (14.0-18.0); Mean Corpuscular HGB CONC 32.9 g/dL (32.0-36.0); Mean Corpuscular Hemoglobin 30.1 pg (27.0-31.0); Mean Corpuscular Volume 91.3 fL (78.0-98.0); Mean Platelet Volume 8.3 fL (7.4-10.4); Platelet Count 389 thou/uL (130-400); RBC Distribution Width 13.1 % (11.5-14.5); Red Blood Cell (RBC) Count 4.46 mill/uL (4.70-6.10); White Blood Cell (WBC) Count 10.5 thou/uL (4.8-10.8)
[2018-08-29 07:00] LABS: Anion Gap 15 mmol/L (10-20); BUN (Urea Nitrogen) 32 mg/dL (8.4-25.7); Calc. Creatinine Clearance 51 mL/min (70-130); Calcium 9.2 mg/dL (7.8-10.44); Carbon Dioxide 17 mmol/L (22-29); Chloride 111 mmol/L (98-107); Estimated GFR-MDRD 42; Glucose 119 mg/dL (70-105); Potassium 3.5 mmol/L (3.5-5.1); Sodium 139 mmol/L (136-145)
[2018-08-29] MEDS: Sodium Chloride 0.9% 1,000 ML IV SCH (07:39)
[2018-08-29] MEDS: Carvedilol 25 MG TAB PO SCH ×2 (08:44→17:30)
[2018-08-29] MEDS: NIFEdipine XL 30 MG TAB PO SCH ×2 (08:47→20:23)
[2018-08-29] MEDS: hydrALAZINE 25 MG TAB PO SCH ×3 (08:47→20:23)
[2018-08-29] MEDS: Thiamine 100 MG TAB PO SCH (08:47)
[2018-08-29] MEDS: Folic Acid 1 MG TAB PO SCH (08:47)
[2018-08-29] MEDS: Allopurinol 100 MG TAB PO SCH (08:48)
[2018-08-29] MEDS: Pantoprazole 40 MG VIAL IVP SCH (08:49)
[2018-08-29] MEDS: Famotidine 40 MG/5 ML Oral Suspension PER TUBE SCH (08:49)
[2018-08-29] MEDS: Prazosin HCl 1 MG CAP PO SCH ×2 (08:49→20:23)
--- NOTE | 2018-08-29 08:50 | RAD ---
XR Chest 1 View Portable History: Ventilated patient Comparison: Radiograph prior day Findings: A feeding tube projects over the chest with tip below diaphragm although out of field of vi ew. Atelectatic changes left lower lobe. No pneumothorax. Heart size mildly enlarged. Right lung is clear. Impression: 1. New weighted feeding tube with tip below diaphragm although out of field of view. 2. Left basilar atelectasis.
--- NOTE | 2018-08-29 10:51 | PDOC.PN ---
- Subjective Encounter Start Date: 08/29/18 Encounter Start Time: 10:30 Patient seen and examined. No overnight events pt has dubhuff tube, he is sleepy this morning, - Objective Resuscitation Status - Order Detail: 08/19/18 13:04 Resuscitation Status Routine Co-Sign Provider: Resuscitation Status: FULL: Full Resuscitation MAR Reviewed: Yes Vital Signs & Weight: Vital Signs (12 hours) Temp Pulse Resp BP Pulse Ox 08/29/18 08:47 88 152/112 H 08/29/18 07:31 99 22 H 08/29/18 04:00 98.2 F 08/29/18 02:44 94 26 H 100 08/29/18 00:00 98.5 F 08/28/18 23:38 85 21 H 100 Weight Admit Weight 180 lb 8.937 oz Weight 193 lb 1.999 oz Most Recent Monitor Data Heart Rate from ECG 94 NIBP 156/124 NIBP BP-Mean 134 Respiration from ECG 29 SpO2 97 I&O: 08/28/18 08/29/18 08/30/18 06:59 06:59 06:59 Intake Total 1990.6 1997 Output Total 1925 1525 Balance 65.6 473 Result Diagrams: 08/29/18 06:01 08/29/18 06:01 Radiology Reviewed by me: Yes (chest xray reviewed) EKG Reviewed by me: Yes (nsr) Phys Exam - Physical Examination Constitutional: NAD HEENT: PERRLA, sclera anicteric dubhuff tube in place Neck: no JVD, supple Respiratory: no wheezing, no rales, no rhonchi Cardiovascular: RRR, no significant murmur, no rub Gastrointestinal: soft, non-tender, no distention, positive bowel sounds Musculoskeletal: no edema, pulses present scd+ Lymphatic: no nodes Skin: no rash, normal turgor Dx/Plan (1) Encephalopathy acute Code(s): G93.40 - ENCEPHALOPATHY, UNSPECIFIED Status: Acute (2) Acute worsening of stage 3 chronic kidney disease Code(s): N18.3 - CHRONIC KIDNEY DISEASE, STAGE 3 (MODERATE) Status: Acute (3) GERD (gastroesophageal reflux disease) Code(s): K21.9 - GASTRO-ESOPHAGEAL REFLUX DISEASE WITHOUT ESOPHAGITIS Status: Chronic (4) Hypokalemia Code(s): E87.6 - HYPOKALEMIA Status: Acute (5) Subarachnoid hemorrhage Code(s): I60.9 - NONTRAUMATIC SUBARACHNOID HEMORRHAGE, UNSPECIFIED Status: Acute (6) Subdural hematoma Code(s): S06.5X9A - TRAUM SUBDR HEM W LOC OF UNSP DURATION, INIT Status: Acute (7) Gout Code(s): M10.9 - GOUT, UNSPECIFIED Status: Chronic (8) HLD (hyperlipidemia) Code(s): E78.5 - HYPERLIPIDEMIA, UNSPECIFIED Status: Chronic (9) Hypertension Code(s): I10 - ESSENTIAL (PRIMARY) HYPERTENSION Status: Chronic (10) Tremor Code(s): R25.1 - TREMOR, UNSPECIFIED Status: Acute Comment: ? parkinson (11) Hyponatremia Code(s): E87.1 - HYPO-OSMOLALITY AND HYPONATREMIA Status: Resolved - Plan cont current plan of care, PT/OT, social service assistant * medication reviewed as below * symptomatic treatment * continue to watch in ccu * tube feeding * supportive care. * renal function improving Review of Systems - Review of Systems Other: unable to review due to his current level of cognitive status - Medications/Allergies Allergies/Adverse Reactions: Allergies Allergy/AdvReac Type Severity Reaction Status Date / Time lisinopril Allergy Verified 01/21/15 12:30 Medications: Current Medications Acetaminophen (Tylenol) 650 mg PO Q4H PRN PRN Reason: Headache/Fever/Mild Pain (1-3) Last Admin: 08/26/18 08:29 Dose: 650 mg Albuterol/Ipratropium (Duoneb) 3 ml NEB [id number] [facility] Last Admin: 08/29/18 07:31 Dose: 3 ml Allopurinol (Zyloprim) 100 mg PO DAILY [facility] Last Admin: 08/29/18 08:48 Dose: 100 mg Lipase/Protease/Amylase ([place] [id number]) 1 cap FS .PER PROTOCOL PRN PRN Reason: TUBE OCCLUSION PROTOCOL Artificial Tears (Tears Naturale) 2 drop EA EYE PRN PRN PRN Reason: Dry Eyes Bisacodyl (Dulcolax) 10 mg [place] DAILYPRN PRN PRN Reason: Constipation Carvedilol (Coreg) 25 mg PO BID-[facility] Last Admin: 08/29/18 08:44 Dose: 25 mg Clonidine (Krquluet-Xka-0) 0.2 mg TD Q7DAYS [facility] Last Admin: 08/25/18 14:41 Dose: 0.2 mg Famotidine (Pepcid) 20 mg PER TUBE DAILY [facility] Last Admin: 08/29/18 08:49 Dose: 20 mg Folic Acid (Folvite) 1 mg PO DAILY [facility] Last Admin: 08/29/18 08:47 Dose: 1 mg Hydralazine HCl (Apresoline) 10 mg SLOW IVP Q15MIN PRN PRN Reason: SBP greater than 150 Last Admin: 08/28/18 16:20 Dose: 10 mg Hydralazine HCl (Apresoline) 100 mg PO TID [facility] Last Admin: 08/29/18 08:47 Dose: 100 mg Levetiracetam 500 mg/ Device 100 mls @ 200 mls/hr IVPB BID [facility] Last Admin: 08/29/18 08:48 Dose: 100 mls Piperacillin Sod/Tazobactam (Sod 3.375 gm/ Sodium Chloride) 100 mls @ 200 mls/ hr IVPB 0200,0800,1400,2000 [facility] Last Admin: 08/29/18 08:44 Dose: 100 mls Sodium Chloride (Normal Saline 0.9%) 1,000 mls @ 50 mls/hr IV .Q20H [facility] Last Admin: 08/29/18 07:39 Dose: 1,000 mls Labetalol HCl (Normodyne) 20 mg SLOW IVP Q4H PRN PRN Reason: SBP > 150 Last Admin: 08/25/18 14:05 Dose: 20 mg Mineral Oil/White Petrolatum (Systane Nighttime Eye Ointment) 0 gm EA EYE PRN PRN PRN Reason: Dry Eyes Nifedipine (Procardia Xl) 30 mg PO Q12HR [facility] Last Admin: 08/29/18 08:47 Dose: 30 mg Ondansetron HCl (Zofran) 4 mg IVP Q6H PRN PRN Reason: Nausea/Vomiting Pantoprazole Sodium (Protonix) 40 mg IVP DAILY [facility] Last Admin: 08/29/18 08:49 Dose: 40 mg Prazosin HCl (Minipress) 1 mg PO BID [facility] Last Admin: 08/29/18 08:49 Dose: 1 mg Senna/Docusate Sodium (Senokot S) 2 tab PO BID PRN PRN Reason: Constipation Sodium Bicarbonate (Bicarbonate, Sodium) 650 mg PER TUBE .PER PROTOCOL PRN PRN Reason: ENTERAL TUBE OCCLUSION Sodium Chloride (Flush - Normal Saline) 10 ml IVF PRN PRN PRN Reason: Saline Flush Sodium Chloride ([place] Nasal [place] 0.65%) 0 ml EA NARE QIDPRN PRN PRN Reason: Nasal Congestion Thiamine HCl (Thiamine) 100 mg PO DAILY [facility] Last Admin: 08/29/18 08:47 Dose: 100 mg Throat Lozenges (Cepastat Lozenges) 1 silverio PO Q2H PRN PRN Reason: Sore Throat
--- NOTE | 2018-08-29 12:59 | RAD ---
XR Abdomen 1 View/KUB History: Dobbhoff tube placement Comparison: Radiograph prior day Findings: The Dobbhoff is been advanced with tip projecting over the gastric antrum. Impression: Dobbhoff tube tip at the level of the gastric antrum.
--- NOTE | 2018-08-29 15:28 | PRG ---
DATE OF SERVICE: 08/29/2018 SUBJECTIVE: Kyle Jaimes is clinically unchanged. OBJECTIVE: GENERAL: He nods to questions. VITAL SIGNS: Blood pressure is still elevated on the diastolic and heart rate is in 80s, respiratory rates in the 20s. LUNGS: Remarkable for mild rhonchi. HEART: Regular rhythm. S1 and S2 are normal. ABDOMEN: Soft. EXTREMITIES: Without clubbing, cyanosis, or edema. LABORATORY DATA: White count 10.5, hemoglobin 13.4, platelets 389. Sodium 139, potassium 3.5, chloride 111, bicarb 17, BUN 32, creatinine 1.99. His Dobhoff was noted to need advancement this morning. Followup abdominal film shows more proper placement of the tip of Dobhoff tube. IMPRESSION: 1. Status post subarachnoid bleed, clinically stable. 2. Hypertension, still needs a little better control. 3. Swallowing dysfunction with Dobbhoff in place now. I think because of my concerns about his ongoing ability to handle secretions, he should stay in the Critical Care Unit for now. Job ID: [id number]
[2018-08-30] MEDS: Piperacillin/Tazobactam 3.375 GM in Sodium Chloride 0.9% 100 ML IVPB SCH ×4 (01:16→20:46)
[2018-08-30 04:36] LABS: #Basophils 0.1 thou/uL (0.0-0.2); #Eosinphils 0.2 thou/uL (0.0-0.7); #Lymphocytes 1.3 thou/uL (1.20-3.40); #Monocytes 1.2 thou/uL (0.11-0.59); #Neutrophils 8.2 thou/uL (1.40-6.50); %Basophils 0.5 % (0.0-1.0); %Eosinophils 1.7 % (0.0-10.0); %Lymphocytes 12.1 % (21.0-51.0); %Monocytes 10.8 % (0.0-10.0); Hemoglobin 12.7 g/dL (14.0-18.0); Mean Corpuscular HGB CONC 32.4 g/dL (32.0-36.0); Mean Corpuscular Hemoglobin 29.8 pg (27.0-31.0); Mean Corpuscular Volume 91.8 fL (78.0-98.0); Mean Platelet Volume 7.9 fL (7.4-10.4); Platelet Count 379 thou/uL (130-400); Red Blood Cell (RBC) Count 4.27 mill/uL (4.70-6.10); White Blood Cell (WBC) Count 10.9 thou/uL (4.8-10.8)
[2018-08-30 04:50] LABS: Anion Gap 12 mmol/L (10-20); BUN (Urea Nitrogen) 29 mg/dL (8.4-25.7); Calc. Creatinine Clearance 49 mL/min (70-130); Calcium 9.2 mg/dL (7.8-10.44); Carbon Dioxide 21 mmol/L (22-29); Chloride 112 mmol/L (98-107); Estimated GFR-MDRD 40; Glucose 128 mg/dL (70-105); Potassium 3.3 mmol/L (3.5-5.1); Sodium 142 mmol/L (136-145)
[2018-08-30] MEDS: Sodium Chloride 0.9% 1,000 ML IV SCH ×2 (06:00→23:11)
[2018-08-30] MEDS: Carvedilol 25 MG TAB PO SCH ×2 (08:28→17:36)
[2018-08-30] MEDS: hydrALAZINE 25 MG TAB PO SCH ×3 (08:28→20:47)
[2018-08-30] MEDS: Allopurinol 100 MG TAB PO SCH (08:29)
[2018-08-30] MEDS: Folic Acid 1 MG TAB PO SCH (08:29)
[2018-08-30] MEDS: Famotidine 40 MG/5 ML Oral Suspension PER TUBE SCH (08:29)
[2018-08-30] MEDS: NIFEdipine XL 30 MG TAB PO SCH ×2 (08:29→20:48)
[2018-08-30] MEDS: Thiamine 100 MG TAB PO SCH (08:29)
[2018-08-30] MEDS: Prazosin HCl 1 MG CAP PO SCH ×2 (08:30→20:48)
[2018-08-30] MEDS: Pantoprazole 40 MG VIAL IVP SCH (08:30)
--- NOTE | 2018-08-30 09:03 | PDOC.PN ---
- Subjective Encounter Start Date: 08/30/18 Encounter Start Time: 07:00 pt has failed swallow evaluation, he is on tube feeding, Patient seen and examined. No overnight events - Objective Resuscitation Status - Order Detail: 08/19/18 13:04 Resuscitation Status Routine Co-Sign Provider: Resuscitation Status: FULL: Full Resuscitation MAR Reviewed: Yes Vital Signs & Weight: Vital Signs (12 hours) Temp Pulse Resp BP Pulse Ox 08/30/18 08:29 82 163/113 H 08/30/18 08:28 82 163/113 H 08/30/18 07:55 77 22 H 08/30/18 07:00 99.9 F H 08/30/18 04:00 99.2 F 08/30/18 02:27 76 21 H 100 08/30/18 00:00 99.1 F 08/29/18 23:55 89 19 92 L Weight Admit Weight 180 lb 8.937 oz Weight 192 lb 14.472 oz Most Recent Monitor Data Heart Rate from ECG 85 NIBP 163/113 NIBP BP-Mean 129 Respiration from ECG 26 SpO2 100 I&O: 08/29/18 08/30/18 08/31/18 06:59 06:59 06:59 Intake Total 1997 3507 Output Total 1525 1480 85 Balance 473 2026 Result Diagrams: 08/30/18 04:10 08/30/18 04:10 EKG Reviewed by me: Yes (nsr) Phys Exam - Physical Examination Constitutional: NAD HEENT: moist MMs, sclera anicteric dubhuff tube in place Neck: no JVD, supple coarse sound+ Cardiovascular: RRR, no significant murmur, no rub Gastrointestinal: soft, non-tender, no distention, positive bowel sounds Musculoskeletal: no edema, pulses present pt has weakness all over Lymphatic: no nodes Psychiatric: normal affect Skin: no rash, normal turgor Dx/Plan (1) Subarachnoid hemorrhage Code(s): I60.9 - NONTRAUMATIC SUBARACHNOID HEMORRHAGE, UNSPECIFIED Status: Acute (2) Subdural hematoma Code(s): S06.5X9A - TRAUM SUBDR HEM W LOC OF UNSP DURATION, INIT Status: Acute (3) Encephalopathy acute Code(s): G93.40 - ENCEPHALOPATHY, UNSPECIFIED Status: Acute (4) Acute worsening of stage 3 chronic kidney disease Code(s): N18.3 - CHRONIC KIDNEY DISEASE, STAGE 3 (MODERATE) Status: Acute (5) GERD (gastroesophageal reflux disease) Code(s): K21.9 - GASTRO-ESOPHAGEAL REFLUX DISEASE WITHOUT ESOPHAGITIS Status: Chronic (6) Hypokalemia Code(s): E87.6 - HYPOKALEMIA Status: Acute (7) Gout Code(s): M10.9 - GOUT, UNSPECIFIED Status: Chronic (8) HLD (hyperlipidemia) Code(s): E78.5 - HYPERLIPIDEMIA, UNSPECIFIED Status: Chronic (9) Hypertension Code(s): I10 - ESSENTIAL (PRIMARY) HYPERTENSION Status: Chronic (10) Hyponatremia Code(s): E87.1 - HYPO-OSMOLALITY AND HYPONATREMIA Status: Resolved - Plan cont current plan of care, continue antibiotics, PT/OT, director of social work, speech therapy, respiratory therapy, DVT proph w/SCDs * continue empiric Zosyn * continue speech therapy and will assess any need for fpc peg tube placement * medication reviewed as below * symptomatic treatment. Review of Systems - Review of Systems Other: not reliable with pt because of his level of cognitive status - Medications/Allergies Allergies/Adverse Reactions: Allergies Allergy/AdvReac Type Severity Reaction Status Date / Time lisinopril Allergy Verified 01/21/15 12:30 Medications: Current Medications Acetaminophen (Tylenol) 650 mg PO Q4H PRN PRN Reason: Headache/Fever/Mild Pain (1-3) Last Admin: 08/26/18 08:29 Dose: 650 mg Albuterol/Ipratropium (Duoneb) 3 ml NEB [id number] [facility] Last Admin: 08/30/18 07:55 Dose: 3 ml Allopurinol (Zyloprim) 100 mg PO DAILY [facility] Last Admin: 08/30/18 08:29 Dose: 100 mg Lipase/Protease/Amylase ([place] [id number]) 1 cap FS .PER PROTOCOL PRN PRN Reason: TUBE OCCLUSION PROTOCOL Artificial Tears (Tears Naturale) 2 drop EA EYE PRN PRN PRN Reason: Dry Eyes Bisacodyl (Dulcolax) 10 mg IN DAILYPRN PRN PRN Reason: Constipation Carvedilol (Coreg) 25 mg PO BID-[facility] Last Admin: 08/30/18 08:28 Dose: 25 mg Clonidine (Pcalfaob-Rby-5) 0.2 mg TD Q7DAYS [facility] Last Admin: 08/25/18 14:41 Dose: 0.2 mg Famotidine (Pepcid) 20 mg PER TUBE DAILY [facility] Last Admin: 08/30/18 08:29 Dose: 20 mg Folic Acid (Folvite) 1 mg PO DAILY [facility] Last Admin: 08/30/18 08:29 Dose: 1 mg Hydralazine HCl (Apresoline) 10 mg SLOW IVP Q15MIN PRN PRN Reason: SBP greater than 150 Last Admin: 08/28/18 16:20 Dose: 10 mg Hydralazine HCl (Apresoline) 100 mg PO TID [facility] Last Admin: 08/30/18 08:28 Dose: 100 mg Levetiracetam 500 mg/ Device 100 mls @ 200 mls/hr IVPB BID [facility] Last Admin: 08/30/18 08:46 Dose: 100 mls Piperacillin Sod/Tazobactam (Sod 3.375 gm/ Sodium Chloride) 100 mls @ 200 mls/ hr IVPB 0200,0800,1400,2000 [facility] Last Admin: 08/30/18 08:28 Dose: 100 mls Sodium Chloride (Normal Saline 0.9%) 1,000 mls @ 50 mls/hr IV .Q20H [facility] Last Admin: 08/30/18 06:00 Dose: Not Given Labetalol HCl (Normodyne) 20 mg SLOW IVP Q4H PRN PRN Reason: SBP > 150 Last Admin: 08/25/18 14:05 Dose: 20 mg Mineral Oil/White Petrolatum (Systane Nighttime Eye Ointment) 0 gm EA EYE PRN PRN PRN Reason: Dry Eyes Nifedipine (Procardia Xl) 30 mg PO Q12HR [facility] Last Admin: 08/30/18 08:29 Dose: 30 mg Ondansetron HCl (Zofran) 4 mg IVP Q6H PRN PRN Reason: Nausea/Vomiting Pantoprazole Sodium (Protonix) 40 mg IVP DAILY [facility] Last Admin: 08/30/18 08:30 Dose: 40 mg Prazosin HCl (Minipress) 1 mg PO BID [facility] Last Admin: 08/30/18 08:30 Dose: 1 mg Senna/Docusate Sodium (Senokot S) 2 tab PO BID PRN PRN Reason: Constipation Sodium Bicarbonate (Bicarbonate, Sodium) 650 mg PER TUBE .PER PROTOCOL PRN PRN Reason: ENTERAL TUBE OCCLUSION Sodium Chloride (Flush - Normal Saline) 10 ml IVF PRN PRN PRN Reason: Saline Flush Sodium Chloride ([place] Nasal [place] 0.65%) 0 ml EA NARE QIDPRN PRN PRN Reason: Nasal Congestion Thiamine HCl (Thiamine) 100 mg PO DAILY [facility] Last Admin: 08/30/18 08:29 Dose: 100 mg Throat Lozenges (Cepastat Lozenges) 1 silverio PO Q2H PRN PRN Reason: Sore Throat
--- NOTE | 2018-08-30 15:58 | PRG ---
DATE OF SERVICE: 08/30/2018 SUBJECTIVE: Kyle Jaimes is in no distress. OBJECTIVE: VITAL SIGNS: He is afebrile. Heart rate is in the 70s, blood pressure 153/110. LUNGS: Clear. HEART: Regular rhythm. ABDOMEN: Soft and nontender. EXTREMITIES: Without clubbing, cyanosis, or edema. He is handling his secretions, but intermittently requiring upper airway secretion suctioning. He is tolerating his Dobhoff. LABORATORY DATA: His white count 10.9, hemoglobin 12.7, platelets 379. Sodium 142, potassium 3.3, chloride 112, bicarb 21, BUN 29, creatinine 2.07. Intake and output positive 2026. IMPRESSION: 1. Status post subarachnoid bleed. 2. Hypertension, still needs to be better controlled. 3. Swallowing dysfunction with a Dobbhoff in place. I suspect he will need a PEG at some point. Also, I am concerned that he may require at some point once we start seeing some improvement in his ability to clear his upper airway secretions. Thus, he should stay in the Critical Care Unit for now. Job ID: [id number]
[2018-08-31] MEDS: Piperacillin/Tazobactam 3.375 GM in Sodium Chloride 0.9% 100 ML IVPB SCH ×4 (02:03→20:49)
[2018-08-31 04:49] LABS: #Eosinphils 0.3 thou/uL (0.0-0.7); #Lymphocytes 1.5 thou/uL (1.20-3.40); #Monocytes 1.2 thou/uL (0.11-0.59); #Neutrophils 8.8 thou/uL (1.40-6.50); %Basophils 0.4 % (0.0-1.0); %Eosinophils 2.3 % (0.0-10.0); %Lymphocytes 12.5 % (21.0-51.0); %Monocytes 9.8 % (0.0-10.0); %Neutrophils 75.1 % (42.0-75.0); Hemoglobin 12.5 g/dL (14.0-18.0); Mean Corpuscular HGB CONC 32.4 g/dL (32.0-36.0); Mean Corpuscular Hemoglobin 29.4 pg (27.0-31.0); Mean Platelet Volume 7.6 fL (7.4-10.4); Platelet Count 378 thou/uL (130-400); Red Blood Cell (RBC) Count 4.25 mill/uL (4.70-6.10); White Blood Cell (WBC) Count 11.8 thou/uL (4.8-10.8)
[2018-08-31 05:07] LABS: Anion Gap 12 mmol/L (10-20); BUN (Urea Nitrogen) 22 mg/dL (8.4-25.7); Calc. Creatinine Clearance 49 mL/min (70-130); Calcium 9.1 mg/dL (7.8-10.44); Carbon Dioxide 21 mmol/L (22-29); Chloride 113 mmol/L (98-107); Estimated GFR-MDRD 41; Glucose 129 mg/dL (70-105); Potassium 3.2 mmol/L (3.5-5.1); Sodium 143 mmol/L (136-145)
[2018-08-31] MEDS: Carvedilol 25 MG TAB PO SCH ×2 (08:44→17:33)
[2018-08-31] MEDS: hydrALAZINE 25 MG TAB PO SCH ×3 (08:50→20:50)
[2018-08-31] MEDS: Allopurinol 100 MG TAB PO SCH (08:53)
[2018-08-31] MEDS: Folic Acid 1 MG TAB PO SCH (08:54)
[2018-08-31] MEDS: Famotidine 40 MG/5 ML Oral Suspension PER TUBE SCH (08:54)
[2018-08-31] MEDS: Thiamine 100 MG TAB PO SCH (08:54)
[2018-08-31] MEDS: Prazosin HCl 1 MG CAP PO SCH ×2 (08:54→20:51)
[2018-08-31] MEDS: NIFEdipine XL 30 MG TAB PO SCH ×2 (09:04→20:51)
[2018-08-31] MEDS: Pantoprazole 40 MG VIAL IVP SCH (09:04)
--- NOTE | 2018-08-31 09:20 | PRG ---
DATE OF SERVICE: 08/31/2018 SUBJECTIVE: This morning, the patient is slightly more responsive, though still he is clearly having difficulty swallowing. OBJECTIVE: VITAL SIGNS: His pulse is 82, blood pressure 138/100, and respiratory rate 18. GENERAL: He is weak, is slightly less encephalopathic. CHEST: Decreased breath sounds. No wheezing. CARDIAC: Normal S1, S2. Regular. LABORATORY DATA: Creatinine is 2. No recent chest x-rays have been taken. ASSESSMENT: 1. Subarachnoid hemorrhage. 2. Renal failure, hypertension, encephalopathy, and recurrent secretions issues. PLAN: He is going to need a PEG and we will talk to his today, very unlikely he will be unable to swallow in the near future. X-ray continues to show left-sided retrocardiac infiltrate and pleural effusion. Continue supportive care, neb treatments, nocturnal ventilation. He has clearly got sleep apnea and empiric antibiotics. This is One-half hour of critical time. Job ID: [id number]
--- NOTE | 2018-08-31 10:57 | PDOC.PN ---
- Subjective Encounter Start Date: 08/31/18 Encounter Start Time: 07:00 Patient seen and examined. No overnight events this morning he was seated in chair, he feels subjectively OK, - Objective Resuscitation Status - Order Detail: 08/19/18 13:04 Resuscitation Status Routine Co-Sign Provider: Resuscitation Status: FULL: Full Resuscitation MAR Reviewed: Yes Vital Signs & Weight: Vital Signs (12 hours) Temp Pulse Resp BP Pulse Ox 08/31/18 09:04 82 154/120 H 08/31/18 08:50 77 138/109 H 08/31/18 07:54 82 24 H 08/31/18 07:00 99.7 F H 08/31/18 04:00 99.6 F 08/31/18 00:16 91 20 100 08/31/18 00:00 99.9 F H Weight Admit Weight 180 lb 8.937 oz Weight 195 lb 15.855 oz Most Recent Monitor Data Heart Rate from ECG 94 NIBP 118/87 NIBP BP-Mean 97 Respiration from ECG 30 SpO2 96 I&O: 08/30/18 08/31/18 09/01/18 06:59 06:59 06:59 Intake Total 3507 3693 430 Output Total 1480 2405 360 Balance 2027 1288 70 Result Diagrams: 08/31/18 04:28 08/31/18 04:28 EKG Reviewed by me: Yes (nsr) Phys Exam - Physical Examination Constitutional: NAD HEENT: PERRLA, moist MMs, sclera anicteric dubhuff tube+ Neck: no JVD, supple Respiratory: no wheezing, no rales, no rhonchi Cardiovascular: RRR, no significant murmur, no rub Gastrointestinal: soft, non-tender, no distention, positive bowel sounds Musculoskeletal: no edema, pulses present Lymphatic: no nodes Psychiatric: normal affect Skin: no rash, normal turgor Dx/Plan (1) Subarachnoid hemorrhage Code(s): I60.9 - NONTRAUMATIC SUBARACHNOID HEMORRHAGE, UNSPECIFIED Status: Acute (2) Subdural hematoma Code(s): S06.5X9A - TRAUM SUBDR HEM W LOC OF UNSP DURATION, INIT Status: Acute (3) Encephalopathy acute Code(s): G93.40 - ENCEPHALOPATHY, UNSPECIFIED Status: Acute (4) Acute worsening of stage 3 chronic kidney disease Code(s): N18.3 - CHRONIC KIDNEY DISEASE, STAGE 3 (MODERATE) Status: Acute (5) GERD (gastroesophageal reflux disease) Code(s): K21.9 - GASTRO-ESOPHAGEAL REFLUX DISEASE WITHOUT ESOPHAGITIS Status: Chronic (6) Hypokalemia Code(s): E87.6 - HYPOKALEMIA Status: Acute (7) Gout Code(s): M10.9 - GOUT, UNSPECIFIED Status: Chronic (8) HLD (hyperlipidemia) Code(s): E78.5 - HYPERLIPIDEMIA, UNSPECIFIED Status: Chronic (9) Hypertension Code(s): I10 - ESSENTIAL (PRIMARY) HYPERTENSION Status: Chronic (10) Hyponatremia Code(s): E87.1 - HYPO-OSMOLALITY AND HYPONATREMIA Status: Resolved (11) Oropharyngeal dysphagia Code(s): R13.12 - DYSPHAGIA, OROPHARYNGEAL PHASE Status: Acute (12) Acute respiratory failure with hypoxia Code(s): J96.01 - ACUTE RESPIRATORY FAILURE WITH HYPOXIA Status: Acute (13) Metabolic acidosis Code(s): E87.2 - ACIDOSIS Status: Acute (14) UTI (urinary tract infection) Status: Acute - Plan cont current plan of care, plan discussed w/ family, continue antibiotics, PT/OT , social professionals * replace potassium * today GI consulted for PEG * he will need placement after that * medication reviewed as below * symptomatic treatment. * currently on zosyn, iv keppra, gentle IVF, tube feeding Review of Systems - Review of Systems Other: not reliable due to his level of cognitive status - Medications/Allergies Allergies/Adverse Reactions: Allergies Allergy/AdvReac Type Severity Reaction Status Date / Time lisinopril Allergy Verified 01/21/15 12:30 Medications: Current Medications Acetaminophen (Tylenol) 650 mg PO Q4H PRN PRN Reason: Headache/Fever/Mild Pain (1-3) Last Admin: 08/26/18 08:29 Dose: 650 mg Albuterol/Ipratropium (Duoneb) 3 ml NEB [id number] [facility] Last Admin: 08/31/18 07:54 Dose: 3 ml Allopurinol (Zyloprim) 100 mg PO DAILY [facility] Last Admin: 08/31/18 08:53 Dose: 100 mg Lipase/Protease/Amylase ([place] [id number]) 1 cap FS .PER PROTOCOL PRN PRN Reason: TUBE OCCLUSION PROTOCOL Artificial Tears (Tears Naturale) 2 drop EA EYE PRN PRN PRN Reason: Dry Eyes Bisacodyl (Dulcolax) 10 mg [place] DAILYPRN PRN PRN Reason: Constipation Carvedilol (Coreg) 25 mg PO BID-WM [facility] Last Admin: 08/31/18 08:44 Dose: 25 mg Clonidine (Hyjjvfrt-Pct-2) 0.2 mg TD Q7DAYS [facility] Last Admin: 08/25/18 14:41 Dose: 0.2 mg Famotidine (Pepcid) 20 mg PER TUBE DAILY [facility] Last Admin: 08/31/18 08:54 Dose: 20 mg Folic Acid (Folvite) 1 mg PO DAILY [facility] Last Admin: 08/31/18 08:54 Dose: 1 mg Hydralazine HCl (Apresoline) 10 mg SLOW IVP Q15MIN PRN PRN Reason: SBP greater than 150 Last Admin: 08/28/18 16:20 Dose: 10 mg Hydralazine HCl (Apresoline) 100 mg PO TID [facility] Last Admin: 08/31/18 08:50 Dose: 100 mg Levetiracetam 500 mg/ Device 100 mls @ 200 mls/hr IVPB BID [facility] Last Admin: 08/31/18 08:55 Dose: 100 mls Piperacillin Sod/Tazobactam (Sod 3.375 gm/ Sodium Chloride) 100 mls @ 200 mls/ hr IVPB 0200,0800,1400,2000 [facility] Last Admin: 08/31/18 08:30 Dose: 100 mls Sodium Chloride (Normal Saline 0.9%) 1,000 mls @ 50 mls/hr IV .Q20H [facility] Last Admin: 08/30/18 23:11 Dose: Not Given Labetalol HCl (Normodyne) 20 mg SLOW IVP Q4H PRN PRN Reason: SBP > 150 Last Admin: 08/25/18 14:05 Dose: 20 mg Mineral Oil/White Petrolatum (Systane Nighttime Eye Ointment) 0 gm EA EYE PRN PRN PRN Reason: Dry Eyes Nifedipine (Procardia Xl) 30 mg PO Q12HR [facility] Last Admin: 08/31/18 09:04 Dose: 30 mg Ondansetron HCl (Zofran) 4 mg IVP Q6H PRN PRN Reason: Nausea/Vomiting Pantoprazole Sodium (Protonix) 40 mg IVP DAILY [facility] Last Admin: 08/31/18 09:04 Dose: 40 mg Prazosin HCl (Minipress) 1 mg PO BID [facility] Last Admin: 08/31/18 08:54 Dose: 1 mg Senna/Docusate Sodium (Senokot S) 2 tab PO BID PRN PRN Reason: Constipation Sodium Bicarbonate (Bicarbonate, Sodium) 650 mg PER TUBE .PER PROTOCOL PRN PRN Reason: ENTERAL TUBE OCCLUSION Sodium Chloride (Flush - Normal Saline) 10 ml IVF PRN PRN PRN Reason: Saline Flush Sodium Chloride ([place] Nasal [place] 0.65%) 0 ml EA NARE QIDPRN PRN PRN Reason: Nasal Congestion Thiamine HCl (Thiamine) 100 mg PO DAILY [facility] Last Admin: 08/31/18 08:54 Dose: 100 mg Throat Lozenges (Cepastat Lozenges) 1 silverio PO Q2H PRN PRN Reason: Sore Throat
--- NOTE | 2018-08-31 10:57 | PRG ---
DATE OF SERVICE: 08/28/2018 SUBJECTIVE: Kyle Jaimes has been stable overnight. OBJECTIVE: VITAL SIGNS: Heart rates in 80s, respiratory rates in the 20s, blood pressure still remarkable for mildly elevated diastolic blood pressure. LUNGS: Clear. HEART: Regular rhythm. ABDOMEN: Soft. There are still concerns about his swallowing. LABORATORY DATA: Hemoglobin is 13.4, white count 12.3, platelets 342,000. Electrolytes; sodium 139, potassium 3.7, chloride 106, bicarb 20, BUN 38, creatinine 2.12, glucose 101. IMPRESSION: 1. Improving encephalopathy. 2. Chronic kidney disease with acute renal dysfunction. 3. Swallowing difficulty, it is quite likely he will require a Dobhoff. 4. Status post mechanical ventilation, clinically stable. Clear lung lucero on chest x-ray today. 5. Hypertension, still suboptimally controlled. 6. Subarachnoid hemorrhage. 7. Febrile illness leading up to this admission. Neurosurgery signed off. We will continue to follow as long as he is in the Critical Care Unit. He is adequately protecting his airway at this time. He will need to continue to be watched closely. Job ID: [id number]
[2018-08-31 11:47] VITALS: BMI 25.9
[2018-08-31] MEDS: Sodium Chloride 0.9% 1,000 ML IV SCH (17:40)
--- NOTE | 2018-08-31 22:33 | CON ---
DATE OF CONSULTATION: 08/31/2018 REASON FOR CONSULTATION: PEG tube placement. HISTORY OF PRESENT ILLNESS: Kyle Jaimes is a 57-year-old man, who was admitted to the hospital on 08/19/2018, unfortunately with a subarachnoid hemorrhage and resulting encephalopathy. Over the course of his long hospitalization since then, he has developed hypoxic respiratory failure and had to be intubated for some time. His encephalopathy has really not resolved. He has been noted to be uremic. He has developed aphasia as well as oropharyngeal dysphagia. He has been getting feeds through Dobhoff tube now and this has been going well. He has been tolerating feeds appropriately. The time has come to consider further placement, and the family has requested the PEG tube placement be considered. The patient does not appear to have had any prior abdominal surgeries. He has seen my GI colleague, Dr. Checo Kelley in the fairly recent past. He underwent EGD and colonoscopy in September 2017. The EGD showed a 2 cm hiatal hernia as well as some esophagitis and reactive gastropathy. The colonoscopy showed pseudomembranous colitis secondary to a C. difficile infection that the patient had at that time, as well as a colon polyp, which was removed. The patient's C. difficile infection resolved with vancomycin and has not recurred. The patient is unable to give me any history as he remains encephalopathic and aphasic. I did speak with his , Meera on the phone and she is desiring us to proceed with PEG tube placement after discussion of the risks and benefits. REVIEW OF SYSTEMS: Unable to obtain as the patient is aphasic. PAST MEDICAL HISTORY: 1. Hypertension. 2. Renal failure. 3. Arthritis. 4. Gout. 5. Previous CVA. 6. C. difficile colitis, treated September 2017. 7. Hiatal hernia. 8. Reflux esophagitis. SOCIAL HISTORY: No alcohol or tobacco abuse. FAMILY HISTORY: Noncontributory. ALLERGIES: LISINOPRIL. MEDICATIONS: 1. DuoNebs. 2. Allopurinol. 3. Coreg. 4. Famotidine. 5. Folic acid. 6. Hydralazine. 7. Keppra. 8. Nifedipine. 9. Protonix 40 mg IV daily. 10. Zosyn. 11. Prazosin. 12. Thiamine. PHYSICAL EXAMINATION: VITAL SIGNS: Pulse 80, blood pressure 145/114, temperature 99.1, 100% oxygen saturation on room air. GENERAL: A 57-year-old man lying in bed, in no distress. Appearing nontoxic. MENTAL: He is aphasic. He does not follow commands or respond to questions appropriately. EXTREMITIES: He does move all extremities spontaneously. SKIN: No jaundice, no rashes were palpable. EYES: No scleral icterus. Extraocular movements intact. ENT: Mucous membranes moist. No oral lesions. Dobhoff tube in place in the right naris. LYMPH: No submandibular or supraclavicular lymphadenopathy. ENDOCRINE: Thyroid nontender to palpation. HEART: Regular rate and rhythm. LUNGS: Clear to auscultation bilaterally. ABDOMEN: Nondistended. Bowel sounds present. Soft, nontender to palpation throughout. No masses or organomegaly appreciated. No surgical scars apparent in the left upper quadrant. EXTREMITIES: No peripheral edema. VESSELS: Radial pulses 2+ bilaterally. LABORATORY STUDIES: WBC 11.8, hemoglobin 12.5, platelets 378. Sodium 143, potassium 3.2, BUN 22, creatinine 2.05. ASSESSMENT/PLAN: 1. Oropharyngeal dysphagia, secondary to subarachnoid hemorrhage. 2. Subarachnoid hemorrhage, stable. I had a long discussion with the patient's over the phone regarding percutaneous endoscopic gastrostomy tube placement. I do think the patient would be a good candidate for percutaneous endoscopic gastrostomy tube placement as it is unclear to what extent his oropharyngeal dysphagia is going to resolve. I discussed the risks and benefits of percutaneous endoscopic gastrostomy tube placement with the patient's and she desires us to proceed. We will schedule this for tomorrow. Hold tube feeds at midnight. Thank you for the consultation. Please call anytime with questions or concerns. Job ID: [id number]
[2018-09-01] MEDS: Piperacillin/Tazobactam 3.375 GM in Sodium Chloride 0.9% 100 ML IVPB SCH ×2 (02:18→10:45)
[2018-09-01 04:36] LABS: #Eosinphils 0.2 thou/uL (0.0-0.7); #Lymphocytes 1.5 thou/uL (1.20-3.40); #Monocytes 1.1 thou/uL (0.11-0.59); #Neutrophils 9.7 thou/uL (1.40-6.50); %Basophils 0.1 % (0.0-1.0); %Eosinophils 1.8 % (0.0-10.0); %Monocytes 9.1 % (0.0-10.0); %Neutrophils 77.1 % (42.0-75.0); Hemoglobin 12.7 g/dL (14.0-18.0); Mean Corpuscular HGB CONC 31.5 g/dL (32.0-36.0); Mean Corpuscular Hemoglobin 28.5 pg (27.0-31.0); Mean Corpuscular Volume 90.6 fL (78.0-98.0); Mean Platelet Volume 8.1 fL (7.4-10.4); Platelet Count 424 thou/uL (130-400); RBC Distribution Width 13.2 % (11.5-14.5); Red Blood Cell (RBC) Count 4.45 mill/uL (4.70-6.10); White Blood Cell (WBC) Count 12.6 thou/uL (4.8-10.8)
[2018-09-01 04:56] LABS: Anion Gap 13 mmol/L (10-20); BUN (Urea Nitrogen) 18 mg/dL (8.4-25.7); Calc. Creatinine Clearance 56 mL/min (70-130); Calcium 9.7 mg/dL (7.8-10.44); Carbon Dioxide 20 mmol/L (22-29); Chloride 114 mmol/L (98-107); Estimated GFR-MDRD 46; Glucose 110 mg/dL (70-105); Potassium 3.7 mmol/L (3.5-5.1); Sodium 143 mmol/L (136-145)
--- NOTE | 2018-09-01 08:35 | PRG ---
DATE OF SERVICE: 09/01/2018 SUBJECTIVE: Kyle Jaimes, this morning, is awake, alert, and responsive. OBJECTIVE: VITAL SIGNS: His blood pressure is still elevated at 150/100, pulse 74, saturations are 100% on room air, and respirations 31. CHEST: Decreased breath sounds. Anterior rhonchi. CARDIAC: Normal S1 and S2. No gallops. ABDOMEN: No masses. LABORATORY DATA: Creatinine 1.84. His white count is 12,000. ASSESSMENT: 1. Hypertension. 2. Subarachnoid hemorrhage. 3. Tracheobronchitis. 4. Urinary tract infection. PLAN: Discontinue antibiotics. Continue neb treatments, supportive care. Awaiting placement. Nocturnal BiPAP. If his exams remain stable, he may benefit from an outpatient sleep study. One-half hour of critical care time. Job ID: [id number]
[2018-09-01] MEDS: Allopurinol 100 MG TAB PO SCH (08:41)
[2018-09-01] MEDS: Famotidine 40 MG/5 ML Oral Suspension PER TUBE SCH (08:41)
[2018-09-01] MEDS: Folic Acid 1 MG TAB PO SCH (08:41)
[2018-09-01] MEDS: hydrALAZINE 25 MG TAB PO SCH ×3 (08:41→20:05)
[2018-09-01] MEDS: Carvedilol 25 MG TAB PO SCH ×2 (08:41→21:00)
[2018-09-01] MEDS: NIFEdipine XL 30 MG TAB PO SCH ×2 (08:42→20:06)
[2018-09-01] MEDS: Thiamine 100 MG TAB PO SCH (08:42)
[2018-09-01] MEDS: Prazosin HCl 1 MG CAP PO SCH ×2 (08:42→20:06)
[2018-09-01] MEDS: hydrALAZINE 20 MG/ML VIAL SLOW IVP PRN ×3 (08:52→19:35)
[2018-09-01] MEDS: Pantoprazole 40 MG VIAL IVP SCH (08:52)
[2018-09-01] MEDS: cloNIDine 0.2mg/24 Hour PATCH TD SCH (13:23)
[2018-09-01] MEDS ORDERED: ceFAZolin 1 GM/D5W 1 GM in Premix Bag 1 BAG IVPB SCH (14:15)
--- NOTE | 2018-09-01 14:51 | PDOC.PN ---
- Subjective Encounter Start Date: 09/01/18 Encounter Start Time: 10:15 Patient seen and examined. No new complaints. No overnight events - Objective Resuscitation Status - Order Detail: 08/19/18 13:04 Resuscitation Status Routine Co-Sign Provider: Resuscitation Status: FULL: Full Resuscitation MAR Reviewed: Yes Vital Signs & Weight: Vital Signs (12 hours) Temp Pulse Pulse Pulse Resp BP BP 09/01/18 13:19 75 34 H 09/01/18 12:00 98.7 F 09/01/18 09:09 147 H 144 H 183/129 H 178/128 H 09/01/18 08:52 70 09/01/18 08:12 70 30 H 09/01/18 08:00 98.8 F 09/01/18 04:00 98.1 F Pulse Ox 09/01/18 13:19 100 09/01/18 12:00 09/01/18 09:09 09/01/18 08:52 09/01/18 08:12 98 09/01/18 08:00 09/01/18 04:00 Weight Admit Weight 180 lb 8.937 oz Weight 195 lb 15.855 oz Most Recent Monitor Data Heart Rate from ECG 80 NIBP 178/127 NIBP BP-Mean 144 Respiration from ECG 25 SpO2 100 I&O: 08/31/18 09/01/18 09/02/18 06:59 06:59 06:59 Intake Total 3693 3261 Output Total 2405 2355 1375 Balance 1288 906 -1375 Result Diagrams: 09/02/18 05:32 09/02/18 05:32 EKG Reviewed by me: Yes Phys Exam - Physical Examination Constitutional: NAD HEENT: moist MMs, sclera anicteric Neck: no JVD, supple Respiratory: no wheezing, no rales, no rhonchi Cardiovascular: RRR, no significant murmur, no rub Gastrointestinal: soft, non-tender, no distention Musculoskeletal: no edema, pulses present Neurological: non-focal, normal sensation Lymphatic: no nodes Psychiatric: normal affect Skin: no rash, normal turgor Dx/Plan (1) Subarachnoid hemorrhage Code(s): I60.9 - NONTRAUMATIC SUBARACHNOID HEMORRHAGE, UNSPECIFIED Status: Acute (2) Subdural hematoma Code(s): S06.5X9A - TRAUM SUBDR HEM W LOC OF UNSP DURATION, INIT Status: Acute (3) Encephalopathy acute Code(s): G93.40 - ENCEPHALOPATHY, UNSPECIFIED Status: Acute (4) Acute worsening of stage 3 chronic kidney disease Code(s): N18.3 - CHRONIC KIDNEY DISEASE, STAGE 3 (MODERATE) Status: Acute (5) GERD (gastroesophageal reflux disease) Code(s): K21.9 - GASTRO-ESOPHAGEAL REFLUX DISEASE WITHOUT ESOPHAGITIS Status: Chronic (6) Hypokalemia Code(s): E87.6 - HYPOKALEMIA Status: Acute (7) Gout Code(s): M10.9 - GOUT, UNSPECIFIED Status: Chronic (8) HLD (hyperlipidemia) Code(s): E78.5 - HYPERLIPIDEMIA, UNSPECIFIED Status: Chronic (9) Hypertension Code(s): I10 - ESSENTIAL (PRIMARY) HYPERTENSION Status: Chronic (10) Hyponatremia Code(s): E87.1 - HYPO-OSMOLALITY AND HYPONATREMIA Status: Resolved (11) Oropharyngeal dysphagia Code(s): R13.12 - DYSPHAGIA, OROPHARYNGEAL PHASE Status: Acute (12) Acute respiratory failure with hypoxia Code(s): J96.01 - ACUTE RESPIRATORY FAILURE WITH HYPOXIA Status: Acute (13) Metabolic acidosis Code(s): E87.2 - ACIDOSIS Status: Acute (14) UTI (urinary tract infection) Status: Acute - Plan cont current plan of care, social media sr strategy manager * today PEG tube placement * start tube feeding * medication reviewed as below * symptomatic treatment. Review of Systems - Review of Systems Other: unable to review due to level of alertness - Medications/Allergies Allergies/Adverse Reactions: Allergies Allergy/AdvReac Type Severity Reaction Status Date / Time lisinopril Allergy Verified 01/21/15 12:30 Medications: Current Medications Acetaminophen (Tylenol) 650 mg PO Q4H PRN PRN Reason: Headache/Fever/Mild Pain (1-3) Last Admin: 08/26/18 08:29 Dose: 650 mg Albuterol/Ipratropium (Duoneb) 3 ml NEB [id number] [facility] Last Admin: 09/01/18 13:19 Dose: 3 ml Allopurinol (Zyloprim) 100 mg PO DAILY [facility] Last Admin: 09/01/18 08:41 Dose: Not Given Lipase/Protease/Amylase ([place] [id number]) 1 cap FS .PER PROTOCOL PRN PRN Reason: TUBE OCCLUSION PROTOCOL Artificial Tears (Tears Naturale) 2 drop EA EYE PRN PRN PRN Reason: Dry Eyes Bisacodyl (Dulcolax) 10 mg [place] DAILYPRN PRN PRN Reason: Constipation Carvedilol (Coreg) 25 mg PO BID-WM [facility] Last Admin: 09/01/18 08:41 Dose: Not Given Clonidine (Jszqusfe-Mtz-0) 0.2 mg TD Q7DAYS [facility] Last Admin: 09/01/18 13:23 Dose: 0.2 mg Famotidine (Pepcid) 20 mg PER TUBE DAILY [facility] Last Admin: 09/01/18 08:41 Dose: Not Given Folic Acid (Folvite) 1 mg PO DAILY [facility] Last Admin: 09/01/18 08:41 Dose: Not Given Hydralazine HCl (Apresoline) 10 mg SLOW IVP Q15MIN PRN PRN Reason: SBP greater than 150 Last Admin: 09/01/18 08:52 Dose: 10 mg Hydralazine HCl (Apresoline) 100 mg PO TID [facility] Last Admin: 09/01/18 08:41 Dose: Not Given Levetiracetam 500 mg/ Device 100 mls @ 200 mls/hr IVPB BID [facility] Last Admin: 09/01/18 08:52 Dose: 100 mls Sodium Chloride (Normal Saline 0.9%) 1,000 mls @ 50 mls/hr IV .Q20H [facility] Last Admin: 08/31/18 17:40 Dose: 1,000 mls Cefazolin Sodium/Dextrose 1 gm (/ Device) 50 mls @ 100 mls/hr IVPB NOW [facility] Stop: 09/01/18 16:15 Labetalol HCl (Normodyne) 20 mg SLOW IVP Q4H PRN PRN Reason: SBP > 150 Last Admin: 08/25/18 14:05 Dose: 20 mg Mineral Oil/White Petrolatum (Systane Nighttime Eye Ointment) 0 gm EA EYE PRN PRN PRN Reason: Dry Eyes Nifedipine (Procardia Xl) 30 mg PO Q12HR [facility] Last Admin: 09/01/18 08:42 Dose: Not Given Ondansetron HCl (Zofran) 4 mg IVP Q6H PRN PRN Reason: Nausea/Vomiting Pantoprazole Sodium (Protonix) 40 mg IVP DAILY [facility] Last Admin: 09/01/18 08:52 Dose: 40 mg Prazosin HCl (Minipress) 1 mg PO BID [facility] Last Admin: 09/01/18 08:42 Dose: Not Given Senna/Docusate Sodium (Senokot S) 2 tab PO BID PRN PRN Reason: Constipation Sodium Bicarbonate (Bicarbonate, Sodium) 650 mg PER TUBE .PER PROTOCOL PRN PRN Reason: ENTERAL TUBE OCCLUSION Sodium Chloride (Flush - Normal Saline) 10 ml IVF PRN PRN PRN Reason: Saline Flush Sodium Chloride ([place] Nasal [place] 0.65%) 0 ml EA NARE QIDPRN PRN PRN Reason: Nasal Congestion Thiamine HCl (Thiamine) 100 mg PO DAILY [facility] Last Admin: 09/01/18 08:42 Dose: Not Given Throat Lozenges (Cepastat Lozenges) 1 silverio PO Q2H PRN PRN Reason: Sore Throat
[2018-09-01] MEDS ORDERED: Lidocaine 1% PF 5 ML VIAL ONE (14:53)
[2018-09-01] MEDS ORDERED: PROPOFOL 200 MG/20 ML VIAL ONE (14:53)
[2018-09-01] MEDS: Labetalol HCl 100 MG/20 ML VIAL SLOW IVP PRN (17:40)
--- NOTE | 2018-09-01 19:20 | OP ---
DATE OF PROCEDURE: 09/01/2018 PROCEDURES PERFORMED: Esophagogastroduodenoscopy with percutaneous gastrostomy tube placement. INDICATION FOR PROCEDURE: Oropharyngeal dysphagia secondary to subarachnoid hemorrhage. DESCRIPTION OF PROCEDURE: After the risks and benefits were explained to the patient and the patient's surrogate including risks of bleeding, infection, perforation, reactions to anesthesia, aspiration, and/or pain, informed consent was obtained. The patient was then taken to the endoscopy suite, where deep sedation was administered via propofol and anesthesia support. Once adequate sedation was achieved, the standard gastroscope was introduced into the mouth with intubation of the esophagus, stomach, and the proximal small intestines with the findings listed below. After completion of the EGD portion of this exam, using transillumination and one-to-one compression, a site for the percutaneous gastrostomy tube was found and aspiration needle was then used to instill 1% lidocaine underneath the skin and a wheal formation right above this region earlier elucidated. Then, directing the needle perpendicular to the skin and using back pressure, it was advanced into the stomach with installation of approximately 5 mL of the lidocaine along the tract upon removal of the needle. A small vertical incision measuring approximately 1 cm was then made in the skin and using an aspiration needle, it was then advanced along this anesthetized tract into the stomach successfully. The guidewire was then advanced through the aspiration needle as catheter and grasped on the other end with the wire snare. Upon firmly securing the guidewire, the guidewire was then pulled through the stomach, esophagus, and out through the mouth, where it was affixed to a 20-[place] percutaneous gastrostomy tube. Then, using a push technique, the guidewire was then retracted through the anterior abdominal wall wound and advanced into position approximating the anterior gastric wall and the anterior abdominal wall. Measurement of the skin was approximately 4 cm after placement. The external bumper was then placed and the tube was cut to length. Upon completion of this portion of procedure, all other equipment was removed from the site and a second-look endoscopy was performed with advancement of the gastrostomy tube back into the stomach. The percutaneous gastrostomy tube was in adequate position and was rotating freely. At which point, all equipment was removed from the patient and the patient was transferred to CCU in satisfactory condition. FINDINGS: Esophagus: Normal-appearing mucosa was seen in the proximal, mid, and distal esophagus. A large hiatal hernia was seen in the distal esophagus with the diaphragmatic pinch well seen at 40 cm while the GE junction was well seen at 37 cm denoting a 3 cm hiatal hernia. Otherwise, there was no evidence of erosions, ulcerations, mass, lesions, or active/recent bleeding. Normal-appearing mucosa was seen in the gastric cardia, fundus, body, greater curvature, antrum, and incisura. There was no evidence of erosions, ulcerations, mass, lesions, or active/recent bleeding. A hiatal hernia was seen on gastric retroflexion. Within the duodenal bulb, there were two superficial erosions seen just proximal to the duodenal sweep with underlying edema underneath them. Biopsies were taken from both of these erosions for further evaluation. Otherwise, there was normal mucosa seen within the duodenal bulb and second portion of the duodenum. There was no evidence of overt ulcerations, mass, lesions, or active/recent bleeding. IMPRESSION: 1. A 3 cm hiatal hernia. 2. Duodenal erosions measuring 3 mm in diameter, status post biopsies. 3. Successful placement of a [place] [employer] 20-[place] percutaneous gastrostomy tube. RECOMMENDATIONS: 1. We transfer the patient back to CCU for further monitoring and care related to the subarachnoid hemorrhage. 2. Would withhold any tube feeds for now and for at least the next 6 hours for any signs of post procedure complications. Would consult Dietary Services for recommendations regarding tube feeds. 3. Would maintain a standard PEG tube care (for example;. a. Maintaining a distance of 1 cm between the external bumper in the skin. b. Would refrain from placing any objects between the external bumper and the skin. c. Would rotate the percutaneous gastrostomy tube approximately 720 degrees daily. The wound can be washed with running soap and water). 4. Would refrain from any baths or swimming for the next six weeks. Job ID: [id number]
[2018-09-01] MEDS: Sodium Chloride 0.9% 1,000 ML IV SCH (21:01)
[2018-09-02] MEDS: hydrALAZINE 20 MG/ML VIAL SLOW IVP PRN (04:38)
[2018-09-02 05:41] LABS: #Eosinphils 0.2 thou/uL (0.0-0.7); #Lymphocytes 1.4 thou/uL (1.20-3.40); #Monocytes 0.9 thou/uL (0.11-0.59); #Neutrophils 9.7 thou/uL (1.40-6.50); %Basophils 0.2 % (0.0-1.0); %Eosinophils 1.4 % (0.0-10.0); %Lymphocytes 11.2 % (21.0-51.0); %Monocytes 7.7 % (0.0-10.0); %Neutrophils 79.5 % (42.0-75.0); Mean Corpuscular HGB CONC 30.4 g/dL (32.0-36.0); Mean Corpuscular Hemoglobin 27.7 pg (27.0-31.0); Mean Corpuscular Volume 91.2 fL (78.0-98.0); Mean Platelet Volume 8.2 fL (7.4-10.4); Platelet Count 482 thou/uL (130-400); RBC Distribution Width 13.2 % (11.5-14.5); Red Blood Cell (RBC) Count 4.71 mill/uL (4.70-6.10); White Blood Cell (WBC) Count 12.1 thou/uL (4.8-10.8)
[2018-09-02 06:03] LABS: Anion Gap 14 mmol/L (10-20); BUN (Urea Nitrogen) 21 mg/dL (8.4-25.7); Calc. Creatinine Clearance 60 mL/min (70-130); Calcium 10.2 mg/dL (7.8-10.44); Carbon Dioxide 20 mmol/L (22-29); Chloride 113 mmol/L (98-107); Estimated GFR-MDRD 51; Glucose 136 mg/dL (70-105); Potassium 3.3 mmol/L (3.5-5.1); Sodium 144 mmol/L (136-145)
[2018-09-02] MEDS: Labetalol HCl 100 MG/20 ML VIAL SLOW IVP PRN (06:36)
--- NOTE | 2018-09-02 08:09 | PRG ---
DATE OF SERVICE: 09/02/2018 SUBJECTIVE: This morning, awake, alert, and responsive. He is status post PEG. OBJECTIVE: VITAL SIGNS: Respiratory rate 24, sats 100% on room air, pulse 79, blood pressure 160/114. GENERAL: He is awake. Moves all 4 extremities, though clearly very weak. CHEST: Decreased breath sounds. No wheezing. CARDIAC: Normal S1, S2. No gallops. ABDOMEN: No masses. LABORATORY DATA: Baseline creatinine /CRF_. White count 12,000. X-ray today shows no acute infiltrates. IMPRESSION: 1. Intracerebral hemorrhage. 2. Respiratory failure, resolved. 3. Sleep apnea. 4. Hypertension. 5. Renal failure. He could be transferred out of the ICU back to the Stroke Unit. Continue supportive care, PT. We will follow. Job ID: [id number] MTDD
--- NOTE | 2018-09-02 08:22 | RAD ---
PORTABLE CHEST: HISTORY: CVA. CCU followup. COMPARISON: 08/29/2018. FINDINGS: Lungs appear clear. Heart and mediastinum unremarkable. Vascular markings normal. IMPRESSION: No acute process identified. POS: [facility]
[2018-09-02] MEDS: hydrALAZINE 25 MG TAB PO SCH (08:53)
[2018-09-02] MEDS: Allopurinol 100 MG TAB PO SCH (08:54)
[2018-09-02] MEDS: Thiamine 100 MG TAB PO SCH (08:55)
[2018-09-02] MEDS: Carvedilol 25 MG TAB PO SCH (08:55)
[2018-09-02] MEDS: Pantoprazole 40 MG VIAL IVP SCH (08:57)
[2018-09-02] MEDS: NIFEdipine XL 30 MG TAB PO SCH ×2 (09:23→10:06)
[2018-09-02] MEDS: Famotidine 40 MG/5 ML Oral Suspension PER TUBE SCH (09:24)
[2018-09-02] MEDS: Prazosin HCl 1 MG CAP PO SCH (09:27)
[2018-09-02] MEDS: Folic Acid 1 MG TAB PO SCH (09:29)
[2018-09-02] MEDS: Sodium Chloride 0.9% 1,000 ML IV SCH (09:31)
--- NOTE | 2018-09-02 11:20 | DIS ---
DATE OF ADMISSION: 08/19/2018 DATE OF DISCHARGE: 09/02/2018 PRIMARY CARE PHYSICIAN: Neeta Elena. DISCHARGE DISPOSITION: correction. PRIMARY DISCHARGE DIAGNOSES: Acute respiratory failure with hypoxia resolved, acute on chronic kidney failure, baseline chronic kidney disease stage 3, acute encephalopathy due to intracranial hemorrhage, hypokalemia, metabolic acidosis, oropharyngeal dysphagia, status post PEG tube placement, subarachnoid hemorrhage, subdural hematoma, urinary tract infection, treated in hospital, hyponatremia. SECONDARY DISCHARGE DIAGNOSES: Hypertension, dyslipidemia, gout, gastroesophageal reflux disease. PRIMARY PROCEDURE/OPERATION: Endotracheal intubation and mechanical ventilatory support, cerebral angiography by Dr. Allen. Percutaneous endoscopic gastrostomy tube placement. RADIOLOGICAL INVESTIGATION: CT brain, chest x-ray, MRI brain, several repeat CTs of the brain, renal ultrasound. SIGNIFICANT LABORATORY DATA: Hemoglobin 13.20, WBC 12.1, platelets 482. INR 0.9. Sodium 144, creatinine 1.7. DISCHARGE MEDICATIONS: 1. Tylenol 500 mg q.6 hourly p.r.n. 2. Allopurinol 100 mg daily. 3. Amlodipine 10 mg p.o. daily. 4. Dulcolax 10 mg daily. 5. Folic acid 1 mg p.o. daily. 6. Hydralazine 100 mg t.i.d. 7. Magnesium 400 mg daily. 8. Omeprazole 20 mg p.o. daily. 9. Prochlorperazine 10 mg t.i.d. 10. Thiamine 100 mg p.o. daily. 11. Keppra 500 mg b.i.d.. 12. Clonidine patch 0.2 mg every 7 days. 13. Coreg 25 mg p.o. b.i.d. 14. Folic acid 1 mg daily. 15. Prazosin 1 mg b.i.d. CONTRAINDICATION: None. CODE STATUS: Full code. INPATIENT HOSPITAL COORDINATOR: Neurosurgeon initially primary, subsequently Sound Team hugo. Gastroenterology was consulted for PEG tube. Neurology was following for altered mental status. Pulmonary Group was managing ventilator. Nephrology was consulted for hyponatremia and kidney failure. TEST RESULTS PENDING ON DISCHARGE: None. ALLERGIES: LISINOPRIL. DISCHARGE PLAN: Posthospital, the patient is planned for discharge to senior living. HOSPITAL COURSE: A 57-year-old male, who was admitted by Dr. Moore. On admission, the patient was having subarachnoid hemorrhage and subdural hematoma that was diagnosed with CT brain and CT [facility] [place]. MRI brain confirmed that diagnosis. The patient underwent cerebral angiography to rule out any aneurysm, which was negative. The patient was managed in ICU for better blood pressure control. This patient also had hyponatremia and acute kidney failure that was improved with IV fluid. The patient's condition deteriorated and he became altered and that is why he required intubation. Subsequently, the patient also had urinary tract infection, which was treated with Zosyn in the hospital. He remained intubated and subsequently extubated. He had EEG done for encephalopathy, which showed diffuse cerebral slowing and Keppra was started. Repeat CT brain was showing some improvement. The patient was monitored in the ICU for aspiration precaution. This patient had oropharyngeal dysphagia, and he was not able to swallow and that is why Gastroenterology Team was consulted and they did PEG tube. This patient is tolerating PEG tube. He is up to his baseline level. This patient is seen and examined. Plan of care discussed with the . He needs placement and that is why with help of nurse case manager, we are arranging intermediate home. Paperwork for discharge done, discharge medication reconciliation done. Overall, once we have intermediate home arranged, then this patient is medically stable for discharge. He will continue tube feeding as well. Job ID: [id number]
--- NOTE | 2018-09-02 11:43 | PDOC.PN ---
- Subjective Encounter Start Date: 09/02/18 Encounter Start Time: 10:30 Patient seen and examined. No new complaints. No overnight events - Objective Resuscitation Status - Order Detail: 08/19/18 13:04 Resuscitation Status Routine Co-Sign Provider: Resuscitation Status: FULL: Full Resuscitation MAR Reviewed: Yes Vital Signs & Weight: Vital Signs (12 hours) Temp Pulse Resp BP Pulse Ox 09/02/18 10:55 98.8 F 09/02/18 10:06 85 147/116 H 09/02/18 09:23 79 164/124 H 09/02/18 09:00 98.5 F 09/02/18 08:53 79 164/124 H 09/02/18 08:00 96 09/02/18 07:34 79 24 H 100 09/02/18 07:00 98.4 F 09/02/18 06:36 85 156/125 H 09/02/18 04:38 102 H 09/02/18 04:00 97.9 F 09/02/18 02:33 27 H 100 09/02/18 00:02 102 H 30 H 100 09/02/18 00:00 99.1 F Weight Admit Weight 180 lb 8.937 oz Weight 189 lb 13.088 oz Most Recent Monitor Data Heart Rate from ECG 83 NIBP 131/92 NIBP BP-Mean 105 Respiration from ECG 27 SpO2 100 I&O: 09/01/18 09/02/18 09/03/18 06:59 06:59 06:59 Intake Total 3261 1916 560 Output Total 2355 3495 247 Balance 906 -1579 313 Result Diagrams: 09/02/18 05:32 09/02/18 05:32 EKG Reviewed by me: Yes Phys Exam - Physical Examination Constitutional: NAD HEENT: PERRLA, moist MMs, sclera anicteric Neck: no JVD, supple Respiratory: no wheezing, no rales, no rhonchi Cardiovascular: RRR, no significant murmur, no rub Gastrointestinal: soft, non-tender, no distention, positive bowel sounds peg+ Musculoskeletal: no edema, pulses present Lymphatic: no nodes Skin: no rash, normal turgor Dx/Plan (1) Subarachnoid hemorrhage Code(s): I60.9 - NONTRAUMATIC SUBARACHNOID HEMORRHAGE, UNSPECIFIED Status: Acute (2) Subdural hematoma Code(s): S06.5X9A - TRAUM SUBDR HEM W LOC OF UNSP DURATION, INIT Status: Acute (3) Encephalopathy acute Code(s): G93.40 - ENCEPHALOPATHY, UNSPECIFIED Status: Acute (4) Acute worsening of stage 3 chronic kidney disease Code(s): N18.3 - CHRONIC KIDNEY DISEASE, STAGE 3 (MODERATE) Status: Acute (5) GERD (gastroesophageal reflux disease) Code(s): K21.9 - GASTRO-ESOPHAGEAL REFLUX DISEASE WITHOUT ESOPHAGITIS Status: Chronic (6) Hypokalemia Code(s): E87.6 - HYPOKALEMIA Status: Acute (7) Gout Code(s): M10.9 - GOUT, UNSPECIFIED Status: Chronic (8) HLD (hyperlipidemia) Code(s): E78.5 - HYPERLIPIDEMIA, UNSPECIFIED Status: Chronic (9) Hypertension Code(s): I10 - ESSENTIAL (PRIMARY) HYPERTENSION Status: Chronic (10) Hyponatremia Code(s): E87.1 - HYPO-OSMOLALITY AND HYPONATREMIA Status: Resolved (11) Oropharyngeal dysphagia Code(s): R13.12 - DYSPHAGIA, OROPHARYNGEAL PHASE Status: Acute (12) Acute respiratory failure with hypoxia Code(s): J96.01 - ACUTE RESPIRATORY FAILURE WITH HYPOXIA Status: Acute (13) Metabolic acidosis Code(s): E87.2 - ACIDOSIS Status: Acute (14) UTI (urinary tract infection) Status: Acute - Plan cont current plan of care, plan discussed w/ family, PT/OT, social work case manager * medication reviewed as below * symptomatic treatment * tube feeding * change procardia to amlodipine * discussed with * if SNU arranged, ok to dc. Review of Systems - Review of Systems Other: not reliable with pt due to his cognitive status - Medications/Allergies Allergies/Adverse Reactions: Allergies Allergy/AdvReac Type Severity Reaction Status Date / Time lisinopril Allergy Verified 01/21/15 12:30 Medications: Current Medications Acetaminophen (Tylenol) 650 mg PO Q4H PRN PRN Reason: Headache/Fever/Mild Pain (1-3) Last Admin: 08/26/18 08:29 Dose: 650 mg Albuterol/Ipratropium (Duoneb) 3 ml NEB [id number] [facility] Last Admin: 09/02/18 07:34 Dose: 3 ml Allopurinol (Zyloprim) 100 mg PO DAILY [facility] Last Admin: 09/02/18 08:54 Dose: 100 mg Amlodipine Besylate (Norvasc) 10 mg PO DAILY [facility] Lipase/Protease/Amylase ([place] [id number]) 1 cap FS .PER PROTOCOL PRN PRN Reason: TUBE OCCLUSION PROTOCOL Artificial Tears (Tears Naturale) 2 drop EA EYE PRN PRN PRN Reason: Dry Eyes Bisacodyl (Dulcolax) 10 mg MN DAILYPRN PRN PRN Reason: Constipation Carvedilol (Coreg) 25 mg PO BID-[facility] Last Admin: 09/02/18 08:55 Dose: 25 mg Clonidine (Dlrsjspb-Fqo-2) 0.2 mg TD Q7DAYS [facility] Last Admin: 09/01/18 13:23 Dose: 0.2 mg Famotidine (Pepcid) 20 mg PER TUBE DAILY [facility] Last Admin: 09/02/18 09:24 Dose: Not Given Folic Acid (Folvite) 1 mg PO DAILY [facility] Last Admin: 09/02/18 09:29 Dose: 1 mg Hydralazine HCl (Apresoline) 10 mg SLOW IVP Q15MIN PRN PRN Reason: SBP greater than 150 Last Admin: 09/02/18 04:38 Dose: 10 mg Hydralazine HCl (Apresoline) 100 mg PO TID [facility] Last Admin: 09/02/18 08:53 Dose: 100 mg Levetiracetam 500 mg/ Device 100 mls @ 200 mls/hr IVPB BID [facility] Last Admin: 09/02/18 08:55 Dose: 100 mls Sodium Chloride (Normal Saline 0.9%) 1,000 mls @ 50 mls/hr IV .Q20H [facility] Last Admin: 09/02/18 09:31 Dose: 1,000 mls Labetalol HCl (Normodyne) 20 mg SLOW IVP Q4H PRN PRN Reason: SBP > 150 Last Admin: 09/02/18 06:36 Dose: 20 mg Mineral Oil/White Petrolatum (Systane Nighttime Eye Ointment) 0 gm EA EYE PRN PRN PRN Reason: Dry Eyes Ondansetron HCl (Zofran) 4 mg IVP Q6H PRN PRN Reason: Nausea/Vomiting Pantoprazole Sodium (Protonix) 40 mg IVP DAILY [facility] Last Admin: 09/02/18 08:57 Dose: 40 mg Prazosin HCl (Minipress) 1 mg PO BID [facility] Last Admin: 09/02/18 09:27 Dose: 1 mg Senna/Docusate Sodium (Senokot S) 2 tab PO BID PRN PRN Reason: Constipation Sodium Bicarbonate (Bicarbonate, Sodium) 650 mg PER TUBE .PER PROTOCOL PRN PRN Reason: ENTERAL TUBE OCCLUSION Sodium Chloride (Flush - Normal Saline) 10 ml IVF PRN PRN PRN Reason: Saline Flush Sodium Chloride ([place] Nasal [place] 0.65%) 0 ml EA NARE QIDPRN PRN PRN Reason: Nasal Congestion Thiamine HCl (Thiamine) 100 mg PO DAILY [facility] Last Admin: 09/02/18 08:55 Dose: 100 mg Throat Lozenges (Cepastat Lozenges) 1 silverio PO Q2H PRN PRN Reason: Sore Throat
[2018-09-02] MEDS ORDERED: Amlodipine 10 MG TAB PO SCH (12:00)
--- NOTE | 2018-09-02 12:33 | PRG ---
DATE OF SERVICE: REASON FOR CONSULTATION: Oropharyngeal dysphagia, status post PEG tube placement. SUBJECTIVE: The patient underwent EGD yesterday with successful placement of a [employer] 20-[place] percutaneous gastrostomy tube approximately 6 hours after placement. He was started on tube feeds successfully with no acute events or problems overnight per nursing staff. He is currently tolerating one can of feeds every 4 hours without any significant residuals per nursing staff. Currently, he denies any abdominal pain or significant bleeding from the PEG tube site. OBJECTIVE: VITAL SIGNS: Temperature 98.8, pulse 83, blood pressure 131/92, respiratory rate 27, saturating 100% on room air. GENERAL: The patient was lying in bed, in no acute distress. Alert and oriented x3, although speech was somewhat garbled, presumably secondary to stroke. CARDIOVASCULAR: Regular rate and rhythm. RESPIRATORY: Clear to auscultation bilaterally, although increased respiratory rate. ABDOMEN: Normoactive bowel sounds. Soft, nondistended, mild tenderness to palpation around the percutaneous gastrostomy wound site. The wound site was clean, dry, and intact without any evidence of purulence, increased skin erythema or infection. LABORATORY DATA: CBC with a white blood cell count of 12.1, hemoglobin 13, hematocrit 42.9, platelets 482. Chemistry with a sodium of 144, potassium 3.3, chloride 113, CO2 of 20, BUN 21, creatinine 1.7, glucose 136. ASSESSMENT AND PLAN: The patient is a 57-year-old male with past medical history of hypertension, renal failure, arthritis, gout, Clostridium difficile colitis, hiatal hernia, reflux esophagitis, and prior stroke, presenting with repeat stroke secondary to subarachnoid hemorrhage and resultant oropharyngeal dysphagia. Oropharyngeal dysphagia. The patient sustained a subarachnoid hemorrhage resulting in loss of function in terms of swallowing and manifesting as oropharyngeal dysphagia on bedside swallow studies. As a result, he subsequently underwent percutaneous gastrostomy tube placement on September 01, with no periprocedural complications. Currently, he is doing well with no postprocedure complication and has been tolerating tube feeds well. Upon my evaluation this morning, I loosened up the external bumper to maintain a distance of approximately 1 cm between the external bumper and the skin, but otherwise no additional recommendations are forthcoming. RECOMMENDATIONS: 1. Continue with standard PEG tube care. 2. Continue tube feeds per dietary recommendations. We will sign off at this time. Please call with any questions. Job ID: [id number]
[2018-09-02 13:39] VITALS: BP 152/109
[2018-09-02 14:01] VITALS: TEMP 98.6
[2018-09-03] MEDS ORDERED: Amlodipine 10 MG TAB PO SCH (09:00)
== END 2018-09-02 14:45 | DRG 64 ==
LOC: ERS 10:36 → CCU 13:45 → 2SE 08-24 11:20 → CCU 08-24 11:25 → 2SE 08-24 11:46 → CCU 08-25 23:18
PROVIDERS: ADMIT Surgery; ATTEND Surgery
PROC: BW191ZZ Fluoroscopy of Head and Neck using Low Osmolar Contrast (ICD-10-PCS; 2018-08-19)
PROC: 0BH18EZ Insertion of Endotracheal Airway into Trachea, Via Natural or Artificial Opening Endoscopic (ICD-10-PCS; principal; 2018-08-26)
PROC: 5A1945Z Respiratory Ventilation, 24-96 Consecutive Hours (ICD-10-PCS; 2018-08-26)
PROC: 0DB98ZX Excision of Duodenum, Via Natural or Artificial Opening Endoscopic, Diagnostic (ICD-10-PCS; 2018-09-01)
PROC: 0DH63UZ Insertion of Feeding Device into Stomach, Percutaneous Approach (ICD-10-PCS; 2018-09-01)
DX: I60.9 Nontraumatic subarachnoid hemorrhage, unspecified (principal); J96.01 Acute respiratory failure with hypoxia; G93.41 Metabolic encephalopathy; N17.9 Acute kidney failure, unspecified; E87.2 Acidosis; E87.1 Hypo-osmolality and hyponatremia; N39.0 Urinary tract infection, site not specified; I62.00 Nontraumatic subdural hemorrhage, unspecified; R29.708 NIHSS score 8; M19.90 Unspecified osteoarthritis, unspecified site; I12.9 Hypertensive chronic kidney disease with stage 1 through stage 4 chronic kidney disease, or unspecified chronic kidney disease; N18.3 Chronic kidney disease, stage 3 (moderate); M10.9 Gout, unspecified; E78.5 Hyperlipidemia, unspecified; E87.6 Hypokalemia; N52.9 Male erectile dysfunction, unspecified; K21.9 Gastro-esophageal reflux disease without esophagitis; D63.1 Anemia in chronic kidney disease; E66.01 Morbid (severe) obesity due to excess calories; R13.12 Dysphagia, oropharyngeal phase; K44.9 Diaphragmatic hernia without obstruction or gangrene; K26.9 Duodenal ulcer, unspecified as acute or chronic, without hemorrhage or perforation; Z79.82 Long term (current) use of aspirin; Z87.891 Personal history of nicotine dependence; Z79.899 Other long term (current) drug therapy; Z88.8 Allergy status to other drugs, medicaments and biological substances; Z68.25 Body mass index [BMI] 25.0-25.9, adult
CPT/HCPCS: 36215; 36216; 36415; 36416; 70450; 70496; 70551; 71045; 74018; 76770; 80048; 80053; 80307; 81001; 82550; 82553; 82805; 83690; 83735; 83880; 83930; 83935; 84300; 84443; 84484; 85025; 85610; 85730; 86038; 86225; 87040; 87070; 87086; 87205; 88305; 93005; 93010; 94002; 94003; 94640; 94660; 95816; 95819; 96360; 96361; C1769; C9113; J0360; J0690; J1644; J1953; J2001; J2543; J2704; J3490; J7050; J7620; Q9966; Q9967